=== PATIENT | female | born 1990 | race Caucasian/White ===

== ENCOUNTER 2017-11-08 14:45 | Emergency (ER) | payer OTHER, SELFPAY ==
--- NOTE | 2017-11-08 16:06 | RAD REPORT ---
EXAM DESCRIPTION: RAD - Chest Single View - 11/08/2017 3:58 pm CLINICAL HISTORY: syncope Chest pain. COMPARISON: No comparisons FINDINGS: Portable technique limits examination quality. The lungs are grossly clear. The heart is normal in size. No displaced fractures. IMPRESSION: No acute intrathoracic process suspected.
[2017-11-08] MEDS ORDERED: KETOROLAC 30 MG/ML INJ ONE (16:10)
[2017-11-08] MEDS ORDERED: NA CHLORIDE 0.9% 1,000 ML ONE (16:10)
[2017-11-08 16:13] LABS: Absolute Lymphocytes (CBC) 1.8 K/uL (0.7-4.9); Absolute Monocytes 0.3 K/uL (0.1-1.3); Absolute Neutrophil 3.3 K/uL (1.8-8.0); Basophils % 0.6 % (0-1.3); Eosinophils % 0.7 % (0-4.4); Lymphocytes % 33.3 % (15.3-44.8); MCH 28.6 pg (27.0-35.0); MCV 85.4 fL (80-100); MPV 7.6 fL (7.6-11.3)
[2017-11-08 16:19] LABS: Protime INR 1.05
[2017-11-08 16:26] LABS: Barbiturates NEGATIVE (NEGATIVE); Benzodiazepines NEGATIVE (NEGATIVE); Cocaine NEGATIVE (NEGATIVE); METHAMPHETAM NEGATIVE (NEGATIVE); Methadone NEGATIVE (NEGATIVE); Opiates NEGATIVE (NEGATIVE); Phencyclidine NEGATIVE (NEGATIVE); THC Cannibis NEGATIVE (NEGATIVE)
--- NOTE | 2017-11-08 16:29 | RAD REPORT ---
EXAM DESCRIPTION: CT - Head Brain Wo Cont - 11/08/2017 4:13 pm CLINICAL HISTORY: Dizziness;Headache COMPARISON: No comparisons TECHNIQUE: All CT scans are performed using dose optimization technique as appropriate and may inclu de automated exposure control or mA/KV adjustment according to patient size. FINDINGS: No intracranial hemorrhage, hydrocephalus or extra-axial fluid collection.No areas of brai n edema or evidence of midline shift. The paranasal sinuses and mastoids are clear. The calvarium is intact. IMPRESSION: No acute intracranial abnormality.
[2017-11-08 16:33] LABS: ALT/SGPT 17 U/L (12-78); AST/SGOT 15 U/L (15-37); Albumin 3.9 g/dL (3.4-5.0); Alkaline Phosphatase 53 U/L (45-117); BUN Blood Urea Nitrogen 10 mg/dL (7-18); Bicarbonate 27 mmol/L (21-32); Bilirubin Direct 0.1 mg/dL (0-0.2); Bilirubin Total 0.4 mg/dL (0.2-1.0); Glucose Level 83 mg/dL (74-106); Magnesium 2.3 mg/dL (1.8-2.4); NT PRO-BNP 40 pg/mL (<125); Potassium 3.7 mmol/L (3.5-5.1); Protein, Total 7.2 g/dL (6.4-8.2); Sodium Level 139 mmol/L (136-145)
[2017-11-08 16:42] LABS: Urine Blood NEGATIVE (NEG); Urine Glucose NEGATIVE (NEG); Urine Protein NEGATIVE (NEG); Urine Specific Gravity 1.015 (1.005-1.030)
[2017-11-08] MEDS ORDERED: TRAMADOL HCL 50 MG TAB ONE (17:53)
--- NOTE | 2017-11-08 17:56 | ER ---
Nurse's Notes [facility] Name: Noreen Jonas Age: 27 yrs Sex: Female : 1990 Arrival Date: 11/08/2017 Time: 14:49 Bed 30 Private MD: None, None Diagnosis: Chronic headaches, body aches and general malaise Presentation: 11/08 14:50 Presenting complaint: Patient states: rafi been passing out frequently, started 3-4 days hj ago; reports abd pain, blurred vision, nausea and migraine; been using [place]; denies fever and chills; LMP- irregular. Transition of care: patient was not received from another setting of care. Onset of symptoms was November 08, 2017. Risk Assessment: Do you want to hurt yourself or someone else? Patient reports no desire to harm self or others. Initial Sepsis Screen: Does the patient meet any 2 criteria? No. Patient's initial sepsis screen is negative. Does the patient have a suspected source of infection? No. Patient's initial sepsis screen is negative. Care prior to arrival: None. 14:50 Method Of Arrival: Ambulatory 14:50 Acuity: MIAH 3 hj Triage Assessment: 14:54 Headache History: Denies prior headaches. General: Appears in no apparent distress. hj uncomfortable, Behavior is calm, cooperative, appropriate for age. Pain: Complains of pain in head Pain currently is 10 out of 10 on a pain scale. Pain began 2-3 days ago. Also complains of nausea. Neuro: Level of Consciousness is awake, alert, obeys commands, Oriented to person, place, time, situation, Appropriate for age. 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 - Social history:: Smoking status: Patient/guardian denies using tobacco, Patient/guardian denies using alcohol. - Ebola Screening: : Patient negative for fever greater than or equal to 101.5 degrees Fahrenheit, and additional compatible Ebola Virus Disease symptoms Patient denies exposure to infectious person Patient denies travel to an Ebola-affected area in the 21 days before illness onset. Screenin:55 Abuse screen: Denies threats or abuse. Denies injuries from another. Nutritional hj screening: No deficits noted. Tuberculosis screening: No symptoms or risk factors identified. Fall Risk None identified. Assessment: 16:23 General: Appears in no apparent distress. comfortable, Behavior is calm, cooperative. mg2 Pain: Complains of pain in head Pain does not radiate. Pain currently is 6 out of 10 on a pain scale. Quality of pain is described as aching, Pain began gradually, Is intermittent. Neuro: Level of Consciousness is awake, alert, obeys commands, Oriented to person, place, time, situation. Cardiovascular: Capillary refill < 3 seconds Patient's skin is warm and dry. Respiratory: Airway is patent Respiratory effort is even, unlabored, Respiratory pattern is regular, symmetrical. GI: No signs and/or symptoms were reported involving the gastrointestinal system. : No signs and/or symptoms were reported regarding the genitourinary system. EENT: No signs and/or symptoms were reported regarding the EENT system. Derm: Skin is intact, Skin is pink, warm \T\ dry. normal. Musculoskeletal: Circulation, motion, and sensation intact. Vital Signs: 14:55 BP 112 / 81; Pulse 77; Resp 18; Temp 99.4(TE); Pulse Ox 99% on R/A; Weight 56.25 kg; hj Height 5 ft. 6 in. (167.64 cm); Pain 10/10; 16:25 BP 117 / 78 Supine; Pulse 64; Resp 18; Pulse Ox 100% ; mg2 16:25 BP 113 / 81 Sitting; Pulse 72; Resp 18; Pulse Ox 100% ; mg2 16:26 BP 125 / 83 Standing; Pulse 74; Resp 18; Pulse Ox 100% ; mg2 17:53 BP 123 / 81; Pulse 76; Resp 18; Pulse Ox 100% on R/A; Pain 6/10; mg2 14:55 Body Mass Index 20.01 (56.25 kg, 167.64 cm) ED Course: 14:49 Patient arrived in ED. mr 14:49 None, None is Private Physician. mr 14:53 Triage completed. hj 14:55 Arm band placed on left wrist. hj 14:55 Patient has correct armband on for positive identification. Placed in gown. Bed in low hj position. Call light in reach. Side rails up X 1. 15:05 Justin Miller, RN is Primary Nurse. mg2 15:30 Carter Pelletier MD is Attending Physician. kdr 15:48 EKG done, by fiberglass quality technician. reviewed by Carter Pelletier MD. 3 15:57 X-ray completed. Portable x-ray completed in exam room. Patient tolerated procedure ml well. 15:[address] via wheelchair. vr 15:58 XRAY Chest (1 view) In Process Unspecified. EDMS 16:13 CT Head Brain wo Cont In Process Unspecified. EDMS 16:23 Inserted saline lock: 20 gauge in right antecubital area, using aseptic technique. mg2 Blood collected. 18:20 No provider procedures requiring assistance completed. IV discontinued, intact, mg2 bleeding controlled, No redness/swelling at site. Pressure dressing applied. Administered Medications: 16:22 Drug: TORadol 30 mg Route: IVP; Site: right antecubital; mg2 16:23 Drug: NS 0.9% 1000 ml Route: IV; Rate: 1 bolus; Site: right antecubital; mg2 18:21 Follow up: Response: No adverse reaction; Pain is decreased; IV Status: Completed mg2 infusion 17:52 Drug: traMADol 100 mg Route: PO; mg2 18:21 Follow up: Response: No adverse reaction; Pain is decreased mg2 Outcome: 17:55 Discharge ordered by . kdr 18:21 Discharged to home ambulatory. mg2 18:21 Condition: stable 18:21 Discharge instructions given to patient, Instructed on discharge instructions, follow up and referral plans. medication usage, Demonstrated understanding of instructions, follow-up care, medications, Prescriptions given X 1. 18:22 Patient left the ED. mg2 Signatures: Dispatcher [employer] EDMI Carter Pelletier MD MD kdr Rivera, Maria mr Edis, Jocelynn Cabral vr Toni Erazo RN RN Justin Miller, JOSE GARCIA mg2 Priya Brooks 3
--- NOTE | 2017-11-08 17:56 | EDPHYS ---
Physician Documentation [facility] Name: Noreen Jonas Age: 27 yrs Sex: Female : 1990 Arrival Date: 11/08/2017 Time: 14:49 Bed 30 Private MD: None, None ED Physician Carter Pelletier HPI: 11/08 17:47 This 27 yrs old Female presents to ER via Ambulatory with complaints of kdr Passed Out Prior To Arrival, Dizziness, Headache, Blurred Vision. 17:47 The patient has experienced syncope, became unresponsive, collapsed, lost kdr consciousness. Onset: The symptoms/episode began/occurred suddenly, 2 week(s) ago. Duration: The patient has had multiple episodes, The patient states that she has been passing out repeatedly for more than a week. She states that she has been having a constant migraine for a weeks and generalized body aches for the last two years. She claims that her s/s may related to her control device. 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 - Social history:: Smoking status: Patient/guardian denies using tobacco, Patient/guardian denies using alcohol. - Ebola Screening: : Patient negative for fever greater than or equal to 101.5 degrees Fahrenheit, and additional compatible Ebola Virus Disease symptoms Patient denies exposure to infectious person Patient denies travel to an Ebola-affected area in the 21 days before illness onset. ROS: 18:02 Constitutional: Negative for fever, chills, and weight loss, Eyes: Negative for injury, kdr pain, redness, and discharge, Neck: Negative for injury, pain, and swelling, Cardiovascular: Negative for chest pain, palpitations, and edema, Respiratory: Negative for shortness of breath, cough, wheezing, and pleuritic chest pain, Abdomen/GI: Negative for abdominal pain, nausea, vomiting, diarrhea, and constipation, Back: Negative for injury and pain, : Negative for injury, bleeding, discharge, and swelling, MS/Extremity: Negative for injury and deformity, Skin: Negative for injury, rash, and discoloration, Psych: Negative for depression, anxiety, suicide ideation, homicidal ideation, and hallucinations, Allergy/Immunology: Negative for hives, rash, and allergies, Endocrine: Negative for neck swelling, polydipsia, polyuria, polyphagia, and marked weight changes, Hematologic/Lymphatic: Negative for swollen nodes, abnormal bleeding, and unusual bruising. 18:02 Neuro: Positive for headache, syncope, weakness. Exam: 18:02 Constitutional: This is a well developed, well nourished patient who is awake, alert, kdr and in no acute distress. Head/Face: Normocephalic, atraumatic. Eyes: Pupils equal round and reactive to light, extra-ocular motions intact. Lids and lashes normal. Conjunctiva and sclera are non-icteric and not injected. Cornea within normal limits. Periorbital areas with no swelling, redness, or edema. Neck: Trachea midline, no thyromegaly or masses palpated, and no cervical lymphadenopathy. Supple, full range of motion without nuchal rigidity, or vertebral point tenderness. No Meningismus. Chest/axilla: Normal chest wall appearance and motion. Nontender with no deformity. No lesions are appreciated. Cardiovascular: Regular rate and rhythm with a normal S1 and S2. No gallops, murmurs, or rubs. Normal PMI, no JVD. No pulse deficits. Respiratory: Lungs have equal breath sounds bilaterally, clear to auscultation and percussion. No rales, rhonchi or wheezes noted. No increased work of breathing, no retractions or nasal flaring. Abdomen/GI: Soft, non-tender, with normal bowel sounds. No distension or tympany. No guarding or rebound. No evidence of tenderness throughout. Back: No spinal tenderness. No costovertebral tenderness. Full range of motion. Skin: Warm, dry with normal turgor. Normal color with no rashes, no lesions, and no evidence of cellulitis. MS/ Extremity: Pulses equal, no cyanosis. Neurovascular intact. Full, normal range of motion. Neuro: Awake and alert, GCS 15, oriented to person, place, time, and situation. Cranial nerves II-XII grossly intact. Motor strength 5/5 in all extremities. Sensory grossly intact. Cerebellar exam normal. Normal gait. Psych: Awake, alert, with orientation to person, place and time. Behavior, mood, and affect are within normal limits. Vital Signs: 14:55 BP 112 / 81; Pulse 77; Resp 18; Temp 99.4(TE); Pulse Ox 99% on R/A; Weight 56.25 kg; hj Height 5 ft. 6 in. (167.64 cm); Pain 10/10; 16:25 BP 117 / 78 Supine; Pulse 64; Resp 18; Pulse Ox 100% ; mg2 16:25 BP 113 / 81 Sitting; Pulse 72; Resp 18; Pulse Ox 100% ; mg2 16:26 BP 125 / 83 Standing; Pulse 74; Resp 18; Pulse Ox 100% ; mg2 17:53 BP 123 / 81; Pulse 76; Resp 18; Pulse Ox 100% on R/A; Pain 6/10; mg2 14:55 Body Mass Index 20.01 (56.25 kg, 167.64 cm) hj MDM: 17:55 Patient medically screened. kdr 18:02 Data reviewed: vital signs, nurses notes, lab test result(s), radiologic studies. kdr Counseling: I had a detailed discussion with the patient and/or guardian regarding: the historical points, exam findings, and any diagnostic results supporting the discharge/admit diagnosis, lab results, radiology results, the need for outpatient follow up. 11/08 15:18 Order name: Urine Dipstick--Ancillary (enter results); Complete Time: 17:28 11/08 15:18 Order name: Urine --Ancillary (enter results); Complete Time: 17:28 11/08 15:32 Order name: Basic Metabolic Panel; Complete Time: 17:28 [facility] 11/08 15:32 Order name: CBC with Diff; Complete Time: 17:28 [facility] 11/08 15:32 Order name: LFT's; Complete Time: 17:28 [facility] 11/08 15:32 Order name: Magnesium; Complete Time: 17:28 [facility] 11/08 15:32 Order name: NT PRO-BNP; Complete Time: 17:28 [facility] 11/08 15:32 Order name: PT-INR; Complete Time: 17:28 [facility] 11/08 15:32 Order name: Ptt, Activated; Complete Time: 17:28 [facility] 11/08 15:32 Order name: Troponin (emerg Dept Use Only); Complete Time: 17:28 [facility] 11/08 15:32 Order name: XRAY Chest (1 view); Complete Time: 17:28 [facility] 11/08 15:32 Order name: UDS; Complete Time: 17: [facility] 11/08 15:52 Order name: CT Head Brain wo Cont; Complete Time: 17:28 [facility] 11/08 15:32 Order name: EKG; Complete Time: 15:33 [facility] 11/08 15:32 Order name: Cardiac monitoring; Complete Time: 16:04 [facility] 11/08 15:32 Order name: EKG - Nurse/Tech; Complete Time: 16:04 [facility] 11/08 15:32 Order name: IV Saline Lock; Complete Time: 16: [facility] 11/08 15:32 Order name: Labs collected and sent; Complete Time: 16: [facility] 11/08 15:32 Order name: O2 Per Protocol; Complete Time: 16:04 [facility] 11/08 15:32 Order name: O2 Sat Monitoring; Complete Time: 16:45 [facility] 11/08 15:32 Order name: Urine Dipstick-Ancillary (obtain specimen); Complete Time: 16:45 [facility] 11/08 15:32 Order name: Urine Test (obtain specimen); Complete Time: 15:40 [facility] 11/08 15:51 Order name: Orthostatic Blood Pressure; Complete Time: 16:23 kdr Administered Medications: 16:22 Drug: TORadol 30 mg Route: IVP; Site: right antecubital; mg2 16:23 Drug: NS 0.9% 1000 ml Route: IV; Rate: 1 bolus; Site: right antecubital; mg2 18:21 Follow up: Response: No adverse reaction; Pain is decreased; IV Status: Completed mg2 infusion 17:52 Drug: traMADol 100 mg Route: PO; mg2 18:21 Follow up: Response: No adverse reaction; Pain is decreased mg2 Disposition: 11/08/17 17:55 Discharged to Home. Impression: Chronic headaches, body aches and general malaise. - Condition is Stable. - Discharge Instructions: Musculoskeletal Pain, Syncope, [id number], General Headache Without Cause, [id number]. - Prescriptions for Tramadol 50 mg Oral Tablet - take 1 tablet by ORAL route every 8 hours as needed; 12 tablet. - Medication Reconciliation Form, Thank You Letter form. - Work release form (11/08/17 18:22). ss - Follow up: Private Physician; When: 2 - 3 days; Reason: If symptoms return, Further diagnostic work-up, Recheck today's complaints, Continuance of care, Re-evaluation by your physician. - Problem is chronic. - Symptoms have improved. Signatures: Dispatcher [employer] EDMS Carter Pelletier MD MD kdr Toni Erazo RN RN Justin Miller RN RN [facility] [place] Brittani Mora RN ss Corrections: (The following items were deleted from the chart) 18:22 17:55 11/08/2017 17:55 Discharged to Home. Impression: Chronic headaches, body aches mg2 and general malaise. Condition is Stable. Forms are Medication Reconciliation Form, Thank You Letter, Antibiotic Education, Prescription Opioid Use. Follow up: Private Physician; When: 2 - 3 days; Reason: If symptoms return, Further diagnostic work-up, Recheck today's complaints, Continuance of care, Re-evaluation by your physician. Problem is chronic. Symptoms have improved. kdr
[2017-11-08 18:34] VITALS: TEMP 99.4
[2017-11-08 18:35] VITALS: O2SAT 100
[2017-11-08 18:37] VITALS: BP 123/81
--- NOTE | 2017-11-08 19:02 | EKG ---
Test Date: 2017-11-08 Test Time: 15:42:03 Stump Shooter: JAMAL MEASUREMENT RESULTS: Intervals: Rate: 71 CA: 132 QRSD: 80 QT: 378 QTc: 410 [place]: P: 66 CA: 132 QRS: 64 T: 49 INTERPRETIVE STATEMENTS: Normal sinus rhythm Possible Left atrial enlargement Borderline ECG No previous ECG available for comparison Electronically Signed On 11-08-17 19:02:35 CDT by Larry Catherine
== END 2017-11-08 18:22 | disposition home or self-care (01) ==
LOC: ER 14:45
DX: R51 Headache (principal); R52 Pain, unspecified; R53.81 Other malaise; Z88.8 Allergy status to other drugs, medicaments and biological substances
CPT/HCPCS: 36415; 70450; 71045; 80048; 80076; 80307; 81003; 81025; 83735; 83880; 84484; 85025; 85610; 85730; 93005; 96361; 96374; 99284; J7030

== ENCOUNTER 2018-05-18 20:04 | Emergency (ER) | payer SELFPAY ==
[2018-05-18 21:22] LABS: Urine Blood NEGATIVE (NEG); Urine Glucose NEGATIVE (NEG); Urine Protein NEGATIVE (NEG); Urine Specific Gravity 1.015 (1.005-1.030); Urine pH 5.5 (5.0-7.0)
[2018-05-18 21:27] LABS: Urine Bacteria <20 /HPF (<20); Urine RBC NONE SEEN /HPF (NONE SEEN)
[2018-05-18 21:28] LABS: Urine Culture Reflex Order NOT NEEDED
[2018-05-18 21:32] LABS: Hematocrit 34.8 % (36.0-45.0); MPV 7.4 fL (7.6-11.3); RBC Red Blood Cell Count 4.08 M/uL (3.86-4.86)
[2018-05-18] MEDS ORDERED: ACETAMINOPHEN 500 MG TAB ONE (21:42)
--- NOTE | 2018-05-19 00:05 | ER ---
Nurse's Notes [facility] Name: Noreen Jonas Age: 27 yrs Sex: Female : 1990 Arrival Date: 05/18/2018 Time: 20:07 Bed 13 Private MD: Diagnosis: Lower abdominal pain, unspecified-early Presentation: 05/18 20:13 Presenting complaint: Patient states: LMP 04/16/2018, had a miscarriage on 04/23/18, la1 negative preg test 05/07/18, had abdominal cramping today took preg test and it was positive. Transition of care: patient was not received from another setting of care. Onset of symptoms was May 18, 2018. Risk Assessment: Do you want to hurt yourself or someone else? Patient reports no desire to harm self or others. Initial Sepsis Screen: Does the patient meet any 2 criteria? No. Patient's initial sepsis screen is negative. Does the patient have a suspected source of infection? No. Patient's initial sepsis screen is negative. Care prior to arrival: None. 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 - Social history:: Smoking status: Patient/guardian denies using tobacco. - Ebola Screening: : No symptoms or risks identified at this time. Screenin:33 Abuse screen: Denies threats or abuse. Denies injuries from another. Nutritional cc3 screening: No deficits noted. Tuberculosis screening: No symptoms or risk factors identified. Fall Risk Ambulatory Aid- None/Bed Rest/Nurse Assist (0 pts). Gait- Normal/Bed Rest/Wheelchair (0 pts) Mental Status- Oriented to own ability (0 pts). Assessment: 20:35 General: Appears in no apparent distress. comfortable, Behavior is calm, cooperative, cc3 appropriate for age. Pain: Complains of pain in abdomen. Neuro: Level of Consciousness is awake, alert, obeys commands, Oriented to person, place, time, situation, Appropriate for age. Cardiovascular: Denies chest pain. Respiratory: Airway is patent Respiratory effort is even, unlabored, Respiratory pattern is regular, symmetrical. GI: Bowel sounds present X 4 quads. Abd is soft and non tender X 4 quads. : No signs and/or symptoms were reported regarding the genitourinary system. EENT: No signs and/or symptoms were reported regarding the EENT system. Derm: No signs and/or symptoms reported regarding the dermatologic system. Musculoskeletal: Circulation, motion, and sensation intact. Range of motion: intact in all extremities. 21:18 Reassessment: Patient appears in no apparent distress at this time. Patient and/or cc3 family updated on plan of care and expected duration. Pain level reassessed. Patient is alert, oriented x 3, equal unlabored respirations, skin warm/dry/pink. 22:12 Reassessment: Patient appears in no apparent distress at this time. Patient and/or cc3 family updated on plan of care and expected duration. Pain level reassessed. Patient is alert, oriented x 3, equal unlabored respirations, skin warm/dry/pink. 23:10 Reassessment: Patient appears in no apparent distress at this time. Patient and/or cc3 family updated on plan of care and expected duration. Pain level reassessed. Patient is alert, oriented x 3, equal unlabored respirations, skin warm/dry/pink. 05/19 00:05 Reassessment: Patient appears in no apparent distress at this time. Patient and/or cc3 family updated on plan of care and expected duration. Pain level reassessed. Patient is alert, oriented x 3, equal unlabored respirations, skin warm/dry/pink. Dr. Garcia discharged the patient home, no prescription given. IV cannula removed and patient left ER vitally stable and ambulatory. Vital Signs: 05/18 20:12 BP 122 / 87; Pulse 93; Resp 18; Temp 97.5; Pulse Ox 98% on R/A; Weight 54.43 kg; Height la1 5 ft. 6 in. (167.64 cm); 21:30 BP 138 / 82; Pulse 85; Resp 19 S; Pulse Ox 100% on R/A; cc3 22:30 BP 126 / 77; Pulse 80; Resp 17 S; Pulse Ox 100% on R/A; cc3 23:10 BP 122 / 80; Pulse 78; Resp 18 S; Pulse Ox 100% on R/A; cc3 05/19 00:00 BP 119 / 77; Pulse 82; Resp 17 S; Pulse Ox 100% on R/A; cc3 05/18 20:12 Body Mass Index 19.37 (54.43 kg, 167.64 cm) la1 ED Course: 05/18 20:07 Patient arrived in ED. am2 20:14 Triage completed. la1 20:14 Arm band placed on left wrist. la1 20:33 Araceli Stephens is Primary Nurse. cc3 20:35 Jan Garcia MD is Attending Physician. gs 20:35 Patient has correct armband on for positive identification. Bed in low position. Call cc3 light in reach. Pulse ox on. NIBP on. 21:15 Inserted saline lock: 22 gauge in left antecubital area, using aseptic technique. Blood cc3 collected. 22:20 Ultrasound completed. Patient tolerated well. Notified ED Physician garcia, [address] request. 22:20 Note: during exam, patient stated she was only here to verify and "see how sg3 far along she was" because she had "nothing better to do today, and figured why not?" pt states she did not feel like waiting for a doctor's appointment. Patient did not complain of pain during exam. . 22:45 US 1st Trimest Single 1st Fetus In Process Unspecified. EDMS 05/19 00:05 No provider procedures requiring assistance completed. IV discontinued, intact, cc3 bleeding controlled, No redness/swelling at site. Pressure dressing applied. Administered Medications: 05/18 21:34 Drug: Tylenol 1000 mg Route: PO; cc3 22:09 Follow up: Response: No adverse reaction; Pain is decreased cc3 Outcome: 05/19 00:04 Discharge ordered by . gs 00:05 Discharged to home ambulatory, with family. cc3 00:05 Condition: stable 00:05 Discharge instructions given to patient, family, Instructed on discharge instructions, follow up and referral plans. Demonstrated understanding of instructions, follow-up care. 00:11 Patient left the ED. cc3 Signatures: Dispatcher [employer] EDTX William Smith, RN RN la1 Amy Almonte am2 Jan Garcia MD MD [facility] Araceli Stephens cc3
--- NOTE | 2018-05-19 00:06 | EDPHYS ---
Physician Documentation [facility] Name: Noreen Jonas Age: 27 yrs Sex: Female : 1990 Arrival Date: 05/18/2018 Time: 20:07 Bed 13 Private MD: ED Physician Jan Walters HPI: 05/18 23:51 This 27 yrs old Female presents to ER via Ambulatory with complaints of gs Abdominal Cramping - + preg test at home. 23:51 The patient presents to the emergency department with abdominal pain, of the right gs lower quadrant and left lower quadrant, that started today, described as crampy. Previous pregnancies: in previous pregnancies patient has had miscarriage about 6-8 weeks ago, positive test. Associated signs and symptoms: Pertinent negatives: vaginal bleeding. The patient has experienced a previous episode. The patient has not recently seen a physician. 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 - Social history:: Smoking status: Patient/guardian denies using tobacco. - Ebola Screening: : No symptoms or risks identified at this time. ROS: 23:51 All other systems are negative. gs Exam: 23:51 Head/Face: Normocephalic, atraumatic. Eyes: Pupils equal round and reactive to light, gs extra-ocular motions intact. Lids and lashes normal. Conjunctiva and sclera are non-icteric and not injected. Cornea within normal limits. Periorbital areas with no swelling, redness, or edema. ENT: Nares patent. No nasal discharge, no septal abnormalities noted. Tympanic membranes are normal and external auditory canals are clear. Oropharynx with no redness, swelling, or masses, exudates, or evidence of obstruction, uvula midline. Mucous membranes moist. Neck: Trachea midline, no thyromegaly or masses palpated, and no cervical lymphadenopathy. Supple, full range of motion without nuchal rigidity, or vertebral point tenderness. No Meningismus. Chest/axilla: Normal chest wall appearance and motion. Nontender with no deformity. No lesions are appreciated. Cardiovascular: Regular rate and rhythm with a normal S1 and S2. No gallops, murmurs, or rubs. Normal PMI, no JVD. No pulse deficits. Respiratory: Lungs have equal breath sounds bilaterally, clear to auscultation and percussion. No rales, rhonchi or wheezes noted. No increased work of breathing, no retractions or nasal flaring. Abdomen/GI: Soft, non-tender, with normal bowel sounds. No distension or tympany. No guarding or rebound. No evidence of tenderness throughout. Back: No spinal tenderness. No costovertebral tenderness. Full range of motion. Skin: Warm, dry with normal turgor. Normal color with no rashes, no lesions, and no evidence of cellulitis. MS/ Extremity: Pulses equal, no cyanosis. Neurovascular intact. Full, normal range of motion. Neuro: Awake and alert, GCS 15, oriented to person, place, time, and situation. Cranial nerves II-XII grossly intact. Motor strength 5/5 in all extremities. Sensory grossly intact. Cerebellar exam normal. Normal gait. 23:51 Constitutional: The patient appears alert, awake. Vital Signs: 20:12 BP 122 / 87; Pulse 93; Resp 18; Temp 97.5; Pulse Ox 98% on R/A; Weight 54.43 kg; Height la1 5 ft. 6 in. (167.64 cm); 21:30 BP 138 / 82; Pulse 85; Resp 19 S; Pulse Ox 100% on R/A; cc3 22:30 BP 126 / 77; Pulse 80; Resp 17 S; Pulse Ox 100% on R/A; cc3 23:10 BP 122 / 80; Pulse 78; Resp 18 S; Pulse Ox 100% on R/A; cc3 05/19 00:00 BP 119 / 77; Pulse 82; Resp 17 S; Pulse Ox 100% on R/A; cc3 05/18 20:12 Body Mass Index 19.37 (54.43 kg, 167.64 cm) la1 MDM: 05/18 20:49 Patient medically screened. 23:51 Differential diagnosis: ectopic , early . Data reviewed: vital signs, nurses notes. Response to treatment: the patient's symptoms have markedly improved after treatment, and as a result, I will discharge patient. 05/18 20:47 Order name: Urine Microscopic Only; Complete Time: 21:31 05/18 21:01 Order name: CBC w/o diff; Complete Time: 22:15 05/18 21:01 Order name: Quantitative Hcg; Complete Time: 22:15 05/18 21:01 Order name: US 1st Trimest Single 1st Fetus 05/18 21:04 Order name: Urine Dipstick--Ancillary (enter results); Complete Time: 21:31 [facility] 05/18 21:04 Order name: Urine --Ancillary (enter results); Complete Time: 21:31 [facility] 05/18 20:47 Order name: Urine Test (obtain specimen); Complete Time: 21:02 05/18 20:47 Order name: Urine Dipstick-Ancillary (obtain specimen); Complete Time: 21:02 Administered Medications: 21:34 Drug: Tylenol 1000 mg Route: PO; cc3 22:09 Follow up: Response: No adverse reaction; Pain is decreased cc3 Disposition: 05/19/18 00:04 Discharged to Home. Impression: Lower abdominal pain, unspecified - early . - Condition is Stable. - Discharge Instructions: Abdominal Pain, Adult, Abdominal Pain During . - Medication Reconciliation Form, Thank You Letter, Antibiotic Education, Prescription Opioid Use form. - Follow up: Private Physician; When: 2 - 3 days; Reason: Re-evaluation by your physician. Signatures: Dispatcher [employer] William Serra RN RN la1 Jan Walters MD MD gs Cordel, Charlene cc3 Corrections: (The following items were deleted from the chart) 05/19 00:11 00:04 05/19/2018 00:04 Discharged to Home. Impression: Lower abdominal pain, cc3 unspecified - early . Condition is Stable. Forms are Medication Reconciliation Form, Thank You Letter, Antibiotic Education, Prescription Opioid Use. Follow up: Private Physician; When: 2 - 3 days; Reason: Re-evaluation by your physician.
[2018-05-19 00:41] VITALS: TEMP 97.5
[2018-05-19 00:42] VITALS: O2SAT 100
[2018-05-19 00:44] VITALS: BP 122/80
--- NOTE | 2018-05-20 13:32 | RAD REPORT ---
EXAM DESCRIPTION: US First Trimester, Transabdominal, US , Transvaginal. CLINICAL HISTORY: The patient is 27 years old and is Female; ABD CRAMPING, . COMPARISON: No relevant prior studies available. TECHNIQUE: Real-time transabdominal and transvaginal obstetrical ultrasound of the maternal pelvis a nd a first trimester with image documentation. Transvaginal imaging was used for better monroe luation of the fetus and adnexa. FINDINGS: Gestation: There is no evidence of an intrauterine . Uterus/cervix: The endometrium is thickened measuring approximately 1.4 cm. No myometrial mass. Ovaries: Unremarkable. No mass. Free fluid: No free fluid. IMPRESSION: No evidence of intrauterine . Findings may be secondary to a very early intraut erine , failed first trimester or ectopic . Recommend continued follow-up with serial hCG and ultrasound. Electronically signed by: Amy Moura MD 05/18/2018 11:45 PM WEB OPERATIONS MANAGER Due to temporary technical issues with the PACS/Fluency reporting system, reports are being signed b y the in house radiologist as a courtesy to ensure prompt reporting. The interpreting radiologist is fully responsible for the content of the report.
== END 2018-05-19 00:11 | disposition home or self-care (01) ==
LOC: ER 20:04
DX: R10.30 Lower abdominal pain, unspecified (principal)
CPT/HCPCS: 36415; 76801; 81003; 81015; 81025; 84702; 85027; 99284

== ENCOUNTER 2020-06-14 10:12 | Emergency (ER) | payer OTHER, SELFPAY ==
--- OUTSIDE RECORDS SUMMARY | 2020-06-14 10:15 | XMS REPORT | Continuity of Care Document ---
:1990 Author Organization [facility] t Address [address] [place] [address] Care Team Providers Name Role Phone Pool, Resident Attending Clinician Unavailable Problems This patient has no known problems. Allergies, Adverse Reactions, Alerts This patient has no known allergies or adverse reactions. Medications This patient has no known medications. Procedures This patient has no known procedures. Encounters Start End Encounter Admission Attending Care Care Encounter Source Date/Time Date/Time Type Type Clinicians Facility Department ID 2020-06-03 2020-06-03 Telephone Pool, [facility] [id number] 00:00:00 00:00:00 [facility] [id number] [facility] [id number] 2020-05-11 2020-05-11 Office Pool, [facility] [id number] 15:19:36 15:56:39 Visit [facility] [id number] [facility] [id number] Results This patient has no known results.
[2020-06-14 10:39] LABS: Urine Blood 2+ (NEG); Urine Glucose NEGATIVE (NEG); Urine Protein NEGATIVE (NEG); Urine Specific Gravity 1.015 (1.005-1.030)
[2020-06-14 11:05] LABS: Urine Bacteria 20-50 /HPF (<20)
[2020-06-14 11:10] LABS: Absolute Lymphocytes (CBC) 1.8 K/uL (0.7-4.9); Basophils % 1.1 % (0-1.3); Hematocrit 32.7 % (36.0-45.0); Lymphocytes % 32.7 % (15.3-44.8); RBC Red Blood Cell Count 4.17 M/uL (3.86-4.86)
[2020-06-14 11:20] LABS: BUN Blood Urea Nitrogen 13 mg/dL (7-18); Bicarbonate 27 mmol/L (21-32); Glucose Level 91 mg/dL (74-106); Sodium Level 140 mmol/L (136-145)
--- NOTE | 2020-06-14 12:03 | EDPHYS ---
Physician Documentation [facility] Name: Noreen Jonas Age: 30 yrs Sex: Female : 1990 Arrival Date: 06/14/2020 Time: 10:18 Bed 14 Private MD: ED Physician Alberto Ferguson HPI: 06/14 11:13 This 30 yrs old Female presents to ER via Ambulatory with complaints of kb Ovarian/Uterine Pain. 11:17 The patient presents with abdominal pain in the left lower quadrant, suprapubic. Onset: kb The symptoms/episode began/occurred 1.5 year(s) ago. The symptoms do not radiate. Associated signs and symptoms: Pertinent positives: vaginal bleeding. The symptoms are described as constant. Modifying factors: The symptoms are alleviated by nothing, the symptoms are aggravated by nothing. Severity of pain: At its worst the pain was moderate in the emergency department the pain is unchanged. The patient has not experienced similar symptoms in the past. The patient has not recently seen a physician. Pt reports she has had ovarian and uterine pain for 1.5 years. States she has vaginal bleeding with it that lasts months at a time. Reports her energy level is low and sometimes she is pale. States it has become a safety hazard at work. Has been seen by a mobile electronics installer for this multiple times and needs a hysterectomy, but her dr is at [facility] and they don't take her insurance. She called her insurance company to find out what she needed to do and they told her to come to an ER to get treatment because she wouldn't be sent away. . 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 - Social history:: Smoking status: Patient denies any tobacco usage or history of. ROS: 11:12 Constitutional: Negative for fever, chills, and weight loss, Cardiovascular: Negative kb for chest pain, palpitations, and edema, Respiratory: Negative for shortness of breath, cough, wheezing, and pleuritic chest pain, Back: Negative for injury and pain, MS/Extremity: Negative for injury and deformity, Skin: Negative for injury, rash, and discoloration, Neuro: Negative for headache, weakness, numbness, tingling, and seizure. 11:12 Abdomen/GI: Positive for abdominal pain. 11:12 : Positive for pelvic pain, vaginal bleeding. Exam: 11:12 Constitutional: This is a well developed, well nourished patient who is awake, alert, kb and in no acute distress. Head/Face: Normocephalic, atraumatic. Chest/axilla: Normal chest wall appearance and motion. Nontender with no deformity. No lesions are appreciated. Cardiovascular: Regular rate and rhythm with a normal S1 and S2. No gallops, murmurs, or rubs. Normal PMI, no JVD. No pulse deficits. Respiratory: Lungs have equal breath sounds bilaterally, clear to auscultation and percussion. No rales, rhonchi or wheezes noted. No increased work of breathing, no retractions or nasal flaring. Skin: Warm, dry with normal turgor. Normal color with no rashes, no lesions, and no evidence of cellulitis. MS/ Extremity: Pulses equal, no cyanosis. Neurovascular intact. Full, normal range of motion. Neuro: Awake and alert, GCS 15, oriented to person, place, time, and situation. Cranial nerves II-XII grossly intact. Motor strength 5/5 in all extremities. Sensory grossly intact. Cerebellar exam normal. Normal gait. 11:12 Abdomen/GI: Inspection: abdomen appears normal, Bowel sounds: normal, in all quadrants, Palpation: soft, in all quadrants, moderate abdominal tenderness, in the suprapubic area and left lower quadrant. Vital Signs: 10:22 BP 141 / 89; Pulse 95; Resp 16 S; Temp 98.2(TE); Pulse Ox 99% on R/A; Weight 69.4 kg ca1 (R); Height 5 ft. 6 in. (167.64 cm) (R); Pain 8/10; 10:22 Body Mass Index 24.69 (69.40 kg, 167.64 cm) ca1 MDM: 10:26 Patient medically screened. kb 11:12 Data reviewed: vital signs, nurses notes. Data interpreted: Pulse oximetry: on room air kb is 99 %. Interpretation: normal. 12:02 Counseling: I had a detailed discussion with the patient and/or guardian regarding: the kb historical points, exam findings, and any diagnostic results supporting the discharge/admit diagnosis, lab results, radiology results, the need for outpatient follow up, an OB/Gyne specialist, to return to the emergency department if symptoms worsen or persist or if there are any questions or concerns that arise at home. 06/14 10:34 Order name: Urine Dipstick--Ancillary (enter results); Complete Time: 10:39 em1 06/14 10:34 Order name: Urine --Ancillary (enter results); Complete Time: 10:40 em1 06/14 10:35 Order name: Urine Microscopic Only iw 06/14 10:36 Order name: Urine Microscopic Only; Complete Time: 11:09 [facility] 06/14 10:38 Order name: CBC with Diff; Complete Time: 11:22 kb 06/14 10:38 Order name: Basic Metabolic Panel; Complete Time: 11:22 kb 06/14 10:23 Order name: Urine Dipstick-Ancillary (obtain specimen); Complete Time: 10:33 kb 06/14 10:23 Order name: Urine Test (obtain specimen); Complete Time: 10:33 kb 06/14 10:38 Order name: US Transvaginal Study (Probe); Complete Time: 12:13 kb Administered Medications: 12:21 Drug: [place] (7.5 mg-325 mg) 1 tabs Route: PO; iw 12:30 Follow up: Response: No adverse reaction iw Disposition: 16:07 Co-signature as Attending Physician, Alberto Ferguson MD. rn Disposition: 06/14/20 12:02 Discharged to Home. Impression: Abdominal and pelvic pain - chronic. - Condition is Stable. - Discharge Instructions: Pelvic Pain, Female, [id number], Abdominal Pain, Adult, [id number]. - Work release form, Medication Reconciliation Form, Thank You Letter, Antibiotic Education, Prescription Opioid Use form. - Follow up: Emergency Department; When: As needed; Reason: Worsening of condition. Follow up: Private Physician; When: 2 - 3 days; Reason: Recheck today's complaints, Continuance of care, Re-evaluation by your physician. Signatures: Dispatcher [employer] EDMS Marry Moya, SMOKING TOBACCO PACKING MACHINE HAND-C SMOKING TOBACCO PACKING MACHINE HAND-Lauren Rivera, RN RN iw Alberto Ferguson MD MD rn Acob, JOSE Diaz RN ca1 Corrections: (The following items were deleted from the chart) 12:21 12:02 06/14/2020 12:02 Discharged to Home. Impression: Abdominal and pelvic pain - iw chronic. Condition is Stable. Forms are Medication Reconciliation Form, Thank You Letter, Antibiotic Education, Prescription Opioid Use. Follow up: Emergency Department; When: As needed; Reason: Worsening of condition. Follow up: Private Physician; When: 2 - 3 days; Reason: Recheck today's complaints, Continuance of care, Re-evaluation by your physician. kb
--- NOTE | 2020-06-14 12:03 | ER ---
Nurse's Notes [facility] Name: Noreen Jonas Age: 30 yrs Sex: Female : 1990 Arrival Date: 06/14/2020 Time: 10:18 Bed 14 Private MD: Diagnosis: Abdominal and pelvic pain-chronic Presentation: 06/14 10:22 Chief complaint: Patient states: Lower abdominal pain, radiates to the LLQ. I've had ca1 this pain for a year and a half with my uterus and my ovary. 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 I also have on and off vaginal bleeding. Coronavirus screen: Client denies travel out of the [place] in the last 14 days. At this time, the client does not indicate any symptoms associated with coronavirus-19. Ebola Screen: Patient negative for fever greater than or equal to 101.5 degrees Fahrenheit, and additional compatible Ebola Virus Disease symptoms Patient denies exposure to infectious person. Patient denies travel to an Ebola-affected area in the 21 days before illness onset. No symptoms or risks identified at this time. Initial Sepsis Screen: Does the patient meet any 2 criteria? No. Patient's initial sepsis screen is negative. Does the patient have a suspected source of infection? No. Patient's initial sepsis screen is negative. Risk Assessment: Do you want to hurt yourself or someone else? Patient reports no desire to harm self or others. Onset of symptoms was June 14, 2020. 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 - Social history:: Smoking status: Patient denies any tobacco usage or history of. Screenin:13 Abuse screen: Denies threats or abuse. Denies injuries from another. Nutritional iw screening: No deficits noted. Tuberculosis screening: No symptoms or risk factors identified. Fall Risk IV access (20 points). Assessment: 11:12 General: Appears in no apparent distress. comfortable, Behavior is calm, cooperative. iw Pain:. Pain: Complains of pain in pelvis. Neuro: Level of Consciousness is awake, alert, obeys commands, Oriented to person, place, time, situation, Moves all extremities. Full function. Cardiovascular: Patient's skin is warm and dry. Respiratory: Respiratory effort is even, unlabored, Respiratory pattern is regular, symmetrical. GI: Reports lower abdominal pain. Derm: Skin is intact, is healthy with good turgor. Musculoskeletal: Range of motion: intact in all extremities. 12:21 Reassessment: Patient appears in no apparent distress at this time. Patient and/or iw family updated on plan of care and expected duration. Pain level reassessed. Patient is alert, oriented x 3, equal unlabored respirations, skin warm/dry/pink. Vital Signs: 10:22 BP 141 / 89; Pulse 95; Resp 16 S; Temp 98.2(TE); Pulse Ox 99% on R/A; Weight 69.4 kg ca1 (R); Height 5 ft. 6 in. (167.64 cm) (R); Pain 8/10; 10:22 Body Mass Index 24.69 (69.40 kg, 167.64 cm) ca1 ED Course: 10:18 Patient arrived in ED. ds1 10:23 Marry Moya FNP-C [facility]. kb 10:23 Alberto Ferguson MD is Attending Physician. kb 10:25 Triage completed. ca1 10:26 Arm band placed on right wrist. ca1 10:27 Lauren Gamble, JOSE is Primary Nurse. iw 11:07 Initial lab(s) drawn, by me, sent to lab. Inserted saline lock: 22 gauge in right iw antecubital area, using aseptic technique. 11:47 US Transvaginal Study (Probe) In Process Unspecified. EDMS 12:21 Patient has correct armband on for positive identification. iw 12:21 No provider procedures requiring assistance completed. IV discontinued, intact, iw bleeding controlled, No redness/swelling at site. Pressure dressing applied. Administered Medications: 12:21 Drug: [place] (7.5 mg-325 mg) 1 tabs Route: PO; iw 12:30 Follow up: Response: No adverse reaction iw Outcome: 12:02 Discharge ordered by . georgie 12:21 Discharged to home ambulatory. iw 12:21 Discharged to home ambulatory, with family. 12:21 Condition: good 12:21 Discharge instructions given to patient, Instructed on discharge instructions, follow up and referral plans. medication usage, Demonstrated understanding of instructions, follow-up care, medications, Prescriptions given X 1. 12:21 Patient left the ED. iw Signatures: Dispatcher [employer] EDMS Marry Moya, EXPEDITER CLERK-C EXPEDITER CLERK-Keyonna Kirby ds1 Lauren Gamble, RN RN iw Emily Tadeo RN RN ca1
--- NOTE | 2020-06-14 12:09 | RAD REPORT ---
EXAM DESCRIPTION: US - Transvaginal Study Probe - 06/14/2020 11:47 am CLINICAL HISTORY: ABD PAIN COMPARISON: No comparisons TECHNIQUE: Endovaginal sonography was performed. FINDINGS: Uterus is 7.9 x 4.0 x 4.8 cm. Endometrium is 7 mm. No focal endometrial or myometrial mass identifiable. Both ovaries are identifiable and show normal blood flow within the ovarian stroma. No suspicious adnexal mass is identifiable. Right ovary contains a small 10 mm benign cyst or follicle. No blood or fluid in the cul de sac. IMPRESSION: As detailed above, pelvic ultrasound shows no significant or suspicious finding.
[2020-06-14] MEDS ORDERED: HYDROCODONE/APAP 7.5/325 MG TAB ONE (12:30)
== END 2020-06-14 12:21 | disposition home or self-care (01) ==
LOC: ER 10:12
DX: R10.2 Pelvic and perineal pain (principal); Z88.6 Allergy status to analgesic agent; Z91.018 Allergy to other foods
CPT/HCPCS: 36415; 76830; 80048; 81003; 81015; 81025; 85025; 99284

== ENCOUNTER 2022-08-10 17:15 | Emergency (ER) | payer SELFPAY ==
--- OUTSIDE RECORDS SUMMARY | 2022-08-10 17:23 | XMS REPORT | Continuity of Care Document ---
:1990 Author Organization [facility] t Address [address] [facility]. [address] [place] [address] Care Team Providers Name Role Phone JJ RODRIGUEZ Primary Care Physician Unavailable Shyam Burgos DO Attending Clinician [facility] Resident Attending Clinician Unavailable Gerson Sharma MD Attending Clinician Doctor Unassigned, Crumpler Attending Clinician Unavailable Hedy Harkins MD Attending Clinician Gerson George MD Attending Clinician Romero Cui Attending Clinician ATIF SPAULDING Attending Clinician Unavailable Atif Spaulding MD Attending Clinician ROMERO COHEN Attending Clinician Unavailable G_Pappas Attending Clinician Unavailable Haydee Carver Attending Clinician HAYDEE WEEKS Attending Clinician Unavailable APRIL TINAJERO Attending Clinician Unavailable MANISHA CRENSHAW Attending Clinician Unavailable Manisha Armenta Attending Clinician Roger Daley Attending Clinician ROGER BAEZ Attending Clinician Unavailable Jj Rodriguez MD Attending Clinician Rebecca Carrera MD Attending Clinician 1, [facility] Attending Clinician Unavailable April Tinajero PA-C Attending Clinician Ultrasound, Adc Mfm Attending Clinician Unavailable Monse Gomez Attending Clinician [phone] Ally Jesus MD Attending Clinician Marina GARCIA, Marjorie Attending Clinician Unavailable MONSE LEON Attending Clinician Unavailable G_Pappas Admitting Clinician Unavailable MANISHA CRENSHAW Admitting Clinician Unavailable Jj Rodriguez MD Admitting Clinician Ally Jesus MD Admitting Clinician Payers Payer Name Policy Type Policy Number Effective Date Expiration Date S sepideh [employer] [place] [facility] [id number] 2020 00:00:00 [place] [id number] [place] [id number] 2018 00:00:00 Problems Condition Condition Condition Status Onset Resolution Last Treating Co mments Source Name Details Category Date Date Treatment Clinician Date Abnormal Abnormal Disease Active Unive rs uterine uterine 3-12 ity of bleeding bleeding 00:00: [address] Pain Pain Disease Active Univers pelvic pelvic 3-25 ity of 00:00: [address] Encounter Encounter Disease Active 2018-04 Overview: Univers for for 1-04 Added ity of sterilizat sterilizat 00:00: automatic [place] ion ion 00 ally from Medical request Branch for surgery [id number] Encounter Encounter Disease Active Uni vers for for 9-30 [place] labor of labor 00 Medica l Branch 37 weeks 37 weeks Disease Active Unive rs gestation gestation 9-17 ity of of of 00:00: [place] 00 [facility] gali [place] Anemia of Anemia of Disease Active Uni vers mother in mother in 8-07 [place]y [place] , , [place] antepartum antepartum 00 Pa dical [place] Depression Depression Disease Active U nivers affecting affecting 6-25 [place] Anxiety Anxiety Disease Active Univers 6-25 ity of 00:00: [address] 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:00: [place] remission remission 00 [facility] Multiparit Multiparit Disease Active 2019- U nivers y y 2-15 ity of 00:00: [place] 00 Medical Branch Supervisio Supervisio Disease Active U nivers n of n of 2-15 ity of high-risk high-risk [place] [facility] Attention Attention Disease Active 2012-04 Overview: Univers deficit deficit 1-15 ICD10 ity of hyperactiv hyperactiv 00:00: Diagnosis [place] ity ity 00 Term Medical disorder disorder [facility] [employer] Bran ch (ADHD) (ADHD) Utility Bipolar Bipolar Disease Active 2012-04 Univers disorder, disorder, 1-15 ity of manic manic 00:00: [place] 00 [facility] Branch Allergies, Adverse Reactions, Alerts Allergy Allergy Status Severity Reaction(s) Onset Inactive Treating Comm ents Source Name Type Date Date Clinician IBUPROFE DRUG Active Rash 2016-04 Univers N INGREDI 2-20 ity of 00:00: [place] 00 [facility] Ibuprofe Propensi Active Rash 2016-04 Univer s n ty to 2-20 ity of adverse 00:00: [place] reaction 00 [facility] PAPAYA DRUG Active Anaphylaxis 2012-04 Unive rs INGREDI 2-13 ity of 00:00: [place] 00 [facility] Papaya Propensi Active Rash 2012-04 Univers ty to 2-13 ity of adverse 00:00: [place] reaction 00 Medical s to Branch drug Social History Social Habit Start Date Stop Date Quantity Comments Source ASSERTION 2018-04-28 University of 00:00:00 [facility] Exposure to Not sure University SARS-CoV-2 [facility] (event) Branch Alcohol intake 2020-06-25 2020-06-25 Current University of 00:00:00 00:00:00 non-drinker of [facility] alcohol [place] (finding) Tobacco use and 2020-06-25 2020-06-25 Never used Universit y of exposure 00:00:00 00:00:00 [facility] Sex Ass[birth year] At [birth year] Universit y of 00:00:00 00:00:00 [facility] Smoking Status Start Date Stop Date Source Never smoker [facility] [place] [facility] Medications Ordered Filled Start Stop Current Ordering Indication Dosage Frequency Signature Comments Components Source Medication Medication Date Date Medication? Clinician (SIG) Name Name norgestimat Yes [id number] 1{tbl} Take 1 Univers e-ethinyl 3-12 tablet by ity o f estradioL 00:00: mouth [place] 0.25-35 00 daily. Medical mg-mcg per Branch tablet norgestimat Yes [id number] 1{tbl} Take 1 Univers e-ethinyl 3-12 tablet by ity o f estradioL 00:00: mouth [place] 0.25-35 00 daily. Medical mg-mcg per Branch tablet norgestimat Yes [id number] 1{tbl} Take 1 Univers e-ethinyl 3-12 tablet by ity o f estradioL 00:00: mouth [place] 0.25-35 00 daily. Medical mg-mcg per Branch tablet norgestimat Yes [id number] 1{tbl} Take 1 Univers e-ethinyl 3-12 tablet by ity o f estradioL 00:00: mouth [place] 0.25-35 00 daily. Medical mg-mcg per Branch tablet norgestimat Yes [id number] 1{tbl} Take 1 Univers e-ethinyl 3-12 tablet by ity o f estradioL 00:00: mouth [place] 0.25-35 00 daily. Medical mg-mcg per Branch tablet norgestimat Yes [id number] 1{tbl} Take 1 Univers e-ethinyl 3-12 tablet by ity o f estradioL 00:00: mouth [place] 0.25-35 00 daily. Medical mg-mcg per Branch tablet norgestimat Yes [id number] 1{tbl} Take 1 Univers e-ethinyl 3-12 tablet by ity o f estradioL 00:00: mouth [place] 0.25-35 00 daily. Medical mg-mcg per Branch tablet norgestimat Yes [id number] 1{tbl} Take 1 Univers e-ethinyl 2-26 tablet by ity o f estradioL 00:00: mouth [place] 0.25-35 00 daily. Medical mg-mcg per Branch tablet norgestimat Yes [id number] 1{tbl} Take 1 Univers e-ethinyl 2-26 tablet by ity o f estradioL 00:00: mouth [place] 0.25-35 00 daily. Medical mg-mcg per Branch tablet norgestimat Yes [id number] 1{tbl} Take 1 Univers e-ethinyl 2-26 tablet by ity o f estradioL 00:00: mouth [place] 0.25-35 00 daily. Medical mg-mcg per Branch tablet norgestimat Yes [id number] 1{tbl} Take 1 Univers e-ethinyl 2-26 tablet by ity o f estradioL 00:00: mouth [place] 0.25-35 00 daily. Medical mg-mcg per Branch tablet norgestimat Yes [id number] 1{tbl} Take 1 Univers e-ethinyl 2-26 tablet by ity o f estradioL 00:00: mouth [place] 0.25-35 00 daily. Medical mg-mcg per Branch tablet norgestimat Yes [id number] 1{tbl} Take 1 Univers e-ethinyl 2-26 tablet by ity o f estradioL 00:00: mouth [place] 0.25-35 00 daily. Medical mg-mcg per Branch tablet norgestimat Yes [id number] 1{tbl} Take 1 Univers e-ethinyl 2-26 tablet by ity o f estradioL 00:00: mouth [place] 0.25-35 00 daily. Medical mg-mcg per Branch tablet norgestimat Yes [id number] 1{tbl} Take 1 Univers e-ethinyl 2-26 tablet by ity o f estradioL 00:00: mouth [place] 0.25-35 00 daily. Medical mg-mcg per Branch tablet ondansetron Yes [id number] 4mg Take 1 Univers (ZOFRAN) 4 1-26 100 tablet by ity of mg tablet 00:00: mouth [place] 00 every 8 Medical (eight) Branch hours as needed for Nausea and Vomiting (N/V). ondansetron Yes [id number] 4mg Take 1 Univers (ZOFRAN) 4 1-26 100 tablet by ity of mg tablet 00:00: mouth [place] 00 every 8 Medical (eight) Branch hours as needed for Nausea and Vomiting (N/V). norgestimat Yes [id number] 1{tbl} Take 1 Univers e-ethinyl 1-26 100 tablet by ity o f estradioL 00:00: mouth [place] 0.25-35 00 daily. Medical mg-mcg per Skip Branch tablet placebo week ondansetron Yes [id number] 4mg Take 1 Univers (ZOFRAN) 4 1-26 100 tablet by ity of mg tablet 00:00: mouth [place] 00 every 8 Medical (eight) Branch hours as needed for Nausea and Vomiting (N/V). norgestimat Yes [id number] 1{tbl} Take 1 Univers e-ethinyl 1-26 100 tablet by ity o f estradioL 00:00: mouth [place] 0.25-35 00 daily. Medical mg-mcg per Skip Branch tablet placebo week ondansetron Yes [id number] 4mg Take 1 Univers (ZOFRAN) 4 1-26 100 tablet by ity of mg tablet 00:00: mouth [place] 00 every 8 Medical (eight) Branch hours as needed for Nausea and Vomiting (N/V). norgestimat Yes [id number] 1{tbl} Take 1 Univers e-ethinyl 1-26 100 tablet by ity o f estradioL 00:00: mouth [place] 0.25-35 00 daily. Medical mg-mcg per Skip Branch tablet placebo week ondansetron Yes [id number] 4mg Take 1 Univers (ZOFRAN) 4 1-26 100 tablet by ity of mg tablet 00:00: mouth [place] 00 every 8 Medical (eight) Branch hours as needed for Nausea and Vomiting (N/V). ondansetron Yes [id number] 4mg Take 1 Univers (ZOFRAN) 4 1-26 100 tablet by ity of mg tablet 00:00: mouth [place] 00 every 8 Medical (eight) Branch hours as needed for Nausea and Vomiting (N/V). ondansetron Yes [id number] 4mg Take 1 Univers (ZOFRAN) 4 1-26 100 tablet by ity of mg tablet 00:00: mouth [place] 00 every 8 Medical (eight) Branch hours as needed for Nausea and Vomiting (N/V). ondansetron Yes [id number] 4mg Take 1 Univers (ZOFRAN) 4 1-26 100 tablet by ity of mg tablet 00:00: mouth [place] 00 every 8 Medical (eight) Branch hours as needed for Nausea and Vomiting (N/V). ondansetron Yes [id number] 4mg Take 1 Univers (ZOFRAN) 4 1-26 100 tablet by ity of mg tablet 00:00: mouth [place] 00 every 8 Medical (eight) Branch hours as needed for Nausea and Vomiting (N/V). ondansetron Yes [id number] 4mg Take 1 Univers (ZOFRAN) 4 1-26 100 tablet by ity of mg tablet 00:00: mouth [place] 00 every 8 Medical (eight) Branch hours as needed for Nausea and Vomiting (N/V). ondansetron Yes [id number] 4mg Take 1 Univers (ZOFRAN) 4 1-26 100 tablet by ity of mg tablet 00:00: mouth [place] 00 every 8 Medical (eight) Branch hours as needed for Nausea and Vomiting (N/V). norgestimat 2020- No [id number] 1{tbl} Take 1 Univers e-ethinyl 1-26 -26 100 tablet by ity of estradioL 00:00: 00:00 mouth [place] 0.25-35 00 :00 daily. Medical mg-mcg per Skip Branch tablet placebo week norgestimat 2019-04 Yes [id number] 1{tbl} Take 1 Univers e-ethinyl 2-04 100 tablet by ity o f estradioL 00:00: mouth [place] 0.25-35 00 daily. Do Medical mg-mcg per not take Branc h tablet week of placebo pills. norgestimat 2019-04 Yes [id number] 1{tbl} Take 1 Univers e-ethinyl 2-04 100 tablet by ity o f estradioL 00:00: mouth [place] 0.25-35 00 daily. Do Medical mg-mcg per not take Branc h tablet week of placebo pills. norgestimat 2019-04 Yes [id number] 1{tbl} Take 1 Univers e-ethinyl 2-04 100 tablet by ity o f estradioL 00:00: mouth [place] 0.25-35 00 daily. Do Medical mg-mcg per not take Branc h tablet week of placebo pills. norgestimat 2019-04 Yes [id number] 1{tbl} Take 1 Univers e-ethinyl 2-04 100 tablet by ity o f estradioL 00:00: mouth [place] 0.25-35 00 daily. Do Medical mg-mcg per not take Branc h tablet week of placebo pills. norgestimat 2019-04 Yes [id number] 1{tbl} Take 1 Univers e-ethinyl 2-04 100 tablet by ity o f estradioL 00:00: mouth [place] 0.25-35 00 daily. Do Medical mg-mcg per not take Branc h tablet week of placebo pills. norgestimat 2019-04 Yes [id number] 1{tbl} Take 1 Univers e-ethinyl 2-04 100 tablet by ity o f estradioL 00:00: mouth [place] 0.25-35 00 daily. Do Medical mg-mcg per not take Branc h tablet week of placebo pills. norgestimat 2019-04 Yes [id number] 1{tbl} Take 1 Univers e-ethinyl 2-04 100 tablet by ity o f estradioL 00:00: mouth [place] 0.25-35 00 daily. Do Medical mg-mcg per not take Branc h tablet week of placebo pills. norgestimat 2019-04 Yes [id number] 1{tbl} Take 1 Univers e-ethinyl 2-04 100 tablet by ity o f estradioL 00:00: mouth [place] 0.25-35 00 daily. Do Medical mg-mcg per not take Branc h tablet week of placebo pills. norgestimat 2019-04- No [id number] 1{tbl} Take 1 Univers e-ethinyl 2-04 02-26 100 tablet by ity of estradioL 00:00: 00:00 mouth [place] 0.25-35 00 :00 daily. Do Medical mg-mcg per not take Branc h tablet week of placebo pills. norgestimat 2019-04 Yes [id number] 1{tbl} Take 1 Univers e-ethinyl 0-16 tablet by ity o f estradioL 00:00: mouth [place] 0.25-35 00 daily. Medical mg-mcg per Branch tablet medroxyPROG 2019-04 Yes [id number] 10mg Take 1 Univers ESTERone 0-16 100 tablet by ity of (PROVERA) 00:00: mouth [place] 10 mg 00 daily. Medical tablet Branch norgestimat 2020- Yes [id number] 1{tbl} Take 1 Univers e-ethinyl 0-16 tablet by ity o f estradioL 00:00: mouth [place] 0.25-35 00 daily. Medical mg-mcg per Branch tablet medroxyPROG 2020- Yes [id number] 10mg Take 1 Univers ESTERone 0-16 100 tablet by ity of (PROVERA) 00:00: mouth [place] 10 mg 00 daily. Medical tablet Branch norgestimat 2020- Yes [id number] 1{tbl} Take 1 Univers e-ethinyl 0-16 tablet by ity o f estradioL 00:00: mouth [place] 0.25-35 00 daily. Medical mg-mcg per Branch tablet medroxyPROG 2020- Yes [id number] 10mg Take 1 Univers ESTERone 0-16 100 tablet by ity of (PROVERA) 00:00: mouth [place] 10 mg 00 daily. Medical tablet Branch norgestimat 2020- Yes [id number] 1{tbl} Take 1 Univers e-ethinyl 0-16 tablet by ity o f estradioL 00:00: mouth [place] 0.25-35 00 daily. Medical mg-mcg per Branch tablet medroxyPROG 2020- Yes [id number] 10mg Take 1 Univers ESTERone 0-16 100 tablet by ity of (PROVERA) 00:00: mouth [place] 10 mg 00 daily. Medical tablet Branch norgestimat 2020- Yes [id number] 1{tbl} Take 1 Univers e-ethinyl 0-16 tablet by ity o f estradioL 00:00: mouth [place] 0.25-35 00 daily. Medical mg-mcg per Branch tablet medroxyPROG 2020- Yes [id number] 10mg Take 1 Univers ESTERone 0-16 100 tablet by ity of (PROVERA) 00:00: mouth [place] 10 mg 00 daily. Medical tablet Branch norgestimat 2020- Yes [id number] 1{tbl} Take 1 Univers e-ethinyl 0-16 tablet by ity o f estradioL 00:00: mouth [place] 0.25-35 00 daily. Medical mg-mcg per Branch tablet medroxyPROG 2020- Yes [id number] 10mg Take 1 Univers ESTERone 0-16 100 tablet by ity of (PROVERA) 00:00: mouth [place] 10 mg 00 daily. Medical tablet Branch norgestimat 2020- Yes [id number] 1{tbl} Take 1 Univers e-ethinyl 0-16 tablet by ity o f estradioL 00:00: mouth [place] 0.25-35 00 daily. Medical mg-mcg per Branch tablet medroxyPROG 2020- Yes [id number] 10mg Take 1 Univers ESTERone 0-16 100 tablet by ity of (PROVERA) 00:00: mouth [place] 10 mg 00 daily. Medical tablet Branch norgestimat 2020- Yes [id number] 1{tbl} Take 1 Univers e-ethinyl 0-16 tablet by ity o f estradioL 00:00: mouth [place] 0.25-35 00 daily. Medical mg-mcg per Branch tablet medroxyPROG 2020- Yes [id number] 10mg Take 1 Univers ESTERone 0-16 100 tablet by ity of (PROVERA) 00:00: mouth [place] 10 mg 00 daily. Medical tablet Branch norgestimat 2020- Yes [id number] 1{tbl} Take 1 Univers e-ethinyl 0-16 tablet by ity o f estradioL 00:00: mouth [place] 0.25-35 00 daily. Medical mg-mcg per Branch tablet medroxyPROG 2020- Yes [id number] 10mg Take 1 Univers ESTERone 0-16 100 tablet by ity of (PROVERA) 00:00: mouth [place] 10 mg 00 daily. Medical tablet Branch norgestimat 2020- Yes [id number] 1{tbl} Take 1 Univers e-ethinyl 0-16 tablet by ity o f estradioL 00:00: mouth [place] 0.25-35 00 daily. Medical mg-mcg per Branch tablet medroxyPROG 2020- Yes [id number] 10mg Take 1 Univers ESTERone 0-16 100 tablet by ity of (PROVERA) 00:00: mouth [place] 10 mg 00 daily. Medical tablet Branch norgestimat 2020- Yes [id number] 1{tbl} Take 1 Univers e-ethinyl 0-16 tablet by ity o f estradioL 00:00: mouth [place] 0.25-35 00 daily. Medical mg-mcg per Branch tablet medroxyPROG 2020- Yes [id number] 10mg Take 1 Univers ESTERone 0-16 100 tablet by ity of (PROVERA) 00:00: mouth [place] 10 mg 00 daily. Medical tablet Branch norgestimat 2019- Yes [id number] 1{tbl} Take 1 Univers e-ethinyl 0-16 tablet by ity o f estradioL 00:00: mouth [place] 0.25-35 00 daily. Medical mg-mcg per Branch tablet medroxyPROG 2020- Yes [id number] 10mg Take 1 Univers ESTERone 0-16 100 tablet by ity of (PROVERA) 00:00: mouth [place] 10 mg 00 daily. Medical tablet Branch norgestimat 2019-04 Yes [id number] 1{tbl} Take 1 Univers e-ethinyl 0-16 tablet by ity o f estradioL 00:00: mouth [place] 0.25-35 00 daily. Medical mg-mcg per Branch tablet medroxyPROG 2019- Yes [id number] 10mg Take 1 Univers ESTERone 0-16 100 tablet by ity of (PROVERA) 00:00: mouth [place] 10 mg 00 daily. Medical tablet Branch norgestimat 2019-04 Yes [id number] 1{tbl} Take 1 Univers e-ethinyl 0-16 tablet by ity o f estradioL 00:00: mouth [place] 0.25-35 00 daily. Medical mg-mcg per Branch tablet medroxyPROG 2019- Yes [id number] 10mg Take 1 Univers ESTERone 0-16 100 tablet by ity of (PROVERA) 00:00: mouth [place] 10 mg 00 daily. Medical tablet Branch norgestimat 2019-2020- No [id number] 1{tbl} Take 1 Univers e-ethinyl 0-16 02-26 tablet by ity of estradioL 00:00: 00:00 mouth [place] 0.25-35 00 :00 daily. Medical mg-mcg per Branch tablet medroxyPROG 2019-2020- No [id number] 10mg Take 1 Univers ESTERone 0-16 02-26 100 tablet by ity o f (PROVERA) 00:00: 00:00 mouth [place] 10 mg 00 :00 daily. Medical tablet Branch Norethindro 2020-0 Yes [id number] Take 1 Univers ne 7-07 tablet by ity of Acet-Ethiny 00:00: mouth [place] l Est 00 daily, Medical (MICROGESTI skip Branch N 1.09/12) placebo 1.5-30 pills and mg-mcg per start new tablet pack on day 22. Norethindro 2019-0 Yes [id number] Take 1 Univers ne 10-20 tablet by ity of Acet-Ethiny 00:00: mouth [place] l Est 00 daily, Medical (MICROGESTI skip Branch N 1.09/12) placebo 1.5-30 pills and mg-mcg per start new tablet pack on day 22. Norethindro 2019- 2020- No [id number] Take 1 Univers ne 10-20 tablet by ity of Acet-Ethiny 00:00: 00:00 [place] 00 :00 daily, Medical (MICROGESTI skip Branch N 1.09/12) placebo 1.5-30 pills and mg-mcg per start new tablet pack on day 22. Norethindro 2019-2019- No [id number] Take 1 Univers ne 10-20 tablet by ity of Acet-Ethiny 00:00: 00:00 [place] Est 00 :00 daily, Medical (MICROGESTI skip Branch N 1.09/12) placebo 1.5-30 pills and mg-mcg per start new tablet pack on day 22. cefTRIAXone No 250mg 250 mg, U nivers (ROCEPHIN) 07-08 Intramuscu it y of injection 23:45: 22:45 [place], [place]CE, [place] 250 mg 00 :00 1 dose, [facility] 07/09/19 at 1845, LINDSEY
Re ason for Anti-Infec tive: Empiric Therapy for Suspected Infection< br>Empiric Therapy Site: Pelvic
Duration of therapy: 72 hours cephALEXin No 500mg 500 mg, Un rachael (KEFLEX) 07-08 Oral, ity of capsule 500 23:30: 22:29 ONCE, 1 [place] mg 00 :00 dose, [facility] 07/09/19 at Branch 1830, LINDSEY
Re ason for Anti-Infec tive: Empiric Therapy for Suspected Infection< br>Empiric Therapy Site: Urine
D uration of therapy: 72 hours iohexol 2019- No 120mL 120 mL, Unive rs (OMNIPAQUE 07-08 Intravenou it y of 350 22:00: 22:00 s, ONCE, 1 [place] BULK-150 00 :00 dose, Wed Medica l mL) 07/09/19 at Branch injection 1700, 120 mL Routine traMADol 2019- No 50mg 50 mg, Univer s (ULTRAM) 07-08-25 Oral, ity of tablet 50 21:45: 21:32 ONCE, 1 [place] mg 00 :00 dose, Wed Medical 07/09/19 at Branch 1645, Routine doxycycline 2020- No [id number] 100mg Take 1 Univers hyclate 100 07-08-05 capsule by i ty of mg capsule 00:00: 04:59 mouth 2 [place] 00 :00 (two) Medical times Branch daily for 10 days. metroNIDAZO 2019- 2020- No [id number] 500mg Take 1 Univers LE 500 mg 07-08-02 tablet by ity of tablet 00:00: 04:59 mouth 2 [place] 00 :00 (two) Medical times Branch daily for 7 days. ondansetron 2019- 2020- No [id number] 4mg Take 1 Univers 4 mg 07-08- tablet by ity of disintegrat 00:00: 04:59 [place] tablet 00 :00 every 8 Medica l (eight) Branch hours as needed for Nausea and Vomiting (N/V) for up to 5 days. traMADol 50 2019- 2020- No [id number] 50mg Take 1 Univers mg tablet 07-08- tablet by ity of 00:00: 04:59 mouth [place] 00 :00 every 6 Medical (six) Branch hours as needed for Pain (scale 7-10) for up to 5 days. 2018- Yes [id number] 1{tbl} Take 1 Univers vitamin 0-01 102 tablet by ity of w/FA tablet 00:00: mouth [place] 00 daily. Medical Branch 2018- Yes [id number] 1{tbl} Take 1 Univers vitamin 0-01 102 tablet by ity of w/FA tablet 00:00: mouth [place] 00 daily. Medical Branch 2019- Yes [id number] 1{tbl} Take 1 Univers vitamin 0-01 102 tablet by ity of w/FA tablet 00:00: mouth [place] 00 daily. Medical Branch 2019- Yes [id number] 1{tbl} Take 1 Univers vitamin 0-01 102 tablet by ity of w/FA tablet 00:00: mouth [place] 00 daily. Medical Branch 2019- Yes [id number] 1{tbl} Take 1 Univers vitamin 0-01 102 tablet by ity of w/FA tablet 00:00: mouth [place] 00 daily. Medical Branch 2019- Yes [id number] 1{tbl} Take 1 Univers vitamin 0-01 102 tablet by ity of w/FA tablet 00:00: mouth [place] 00 daily. Medical Branch 2019- Yes [id number] 1{tbl} Take 1 Univers vitamin 0-01 102 tablet by ity of w/FA tablet 00:00: mouth [place] 00 daily. Medical Branch 2019- Yes [id number] 1{tbl} Take 1 Univers vitamin 0-01 102 tablet by ity of w/FA tablet 00:00: mouth [place] 00 daily. Medical Branch 2019 Yes [id number] 1{tbl} Take 1 Univers vitamin 0-01 102 tablet by ity of w/FA tablet 00:00: mouth [place] 00 daily. Medical Branch 2019 Yes [id number] 1{tbl} Take 1 Univers vitamin 0-01 102 tablet by ity of w/FA tablet 00:00: mouth [place] 00 daily. Medical [place] 2019- Yes [id number] 1{tbl} Take 1 Univers vitamin 0-01 102 tablet by ity of w/FA tablet 00:00: mouth [place] 00 daily. Medical Branch 2019- Yes [id number] 1{tbl} Take 1 Univers vitamin 0-01 102 tablet by ity of w/FA tablet 00:00: mouth [place] 00 daily. Medical Branch 2019- 2020- No [id number] 1{tbl} Take 1 Univers vitamin 0-01 07-07 102 tablet by ity of w/FA tablet 00:00: 00:00 [place] :00 daily. Medical [place] 2019- 2020- No [id number] 1{tbl} Take 1 Univers vitamin 0-01 07-07 102 tablet by ity of w/FA tablet 00:00: [place] :00 daily. [facility] iron 2018- 2019- No 300mg 300 mg, IV Unive rs sucrose 12-31 Infusion, ity of (VENOFER) 15:30: 17:08 ONCE, [place] 300 mg in 00 :00 12/31/18 at [facility] gali NaCl 0.9% 1030, For Branc h (NS) 250 mL 1 dose infusion ferrous 2018- Yes [id number] 325mg Take 1 Un rachael sulfate 8-07 tablet by ity of (IRON, 00:00: mouth 2 [place] FERROUS 00 (two) Medical SULFATE,) times Branch 325 mg (65 daily. mg iron) tablet ferrous 2018- Yes [id number] 325mg Take 1 Un rachael sulfate 8-07 tablet by ity of (IRON, 00:00: mouth 2 [place] FERROUS 00 (two) Medical SULFATE,) times Branch 325 mg (65 daily. mg iron) tablet ascorbic Yes [id number] 500mg Take 1 U nivers acid, 8-07 tablet by ity of vitamin C, 00:00: mouth 3 [place] 500 mg 00 (three) Medical tablet times Branch daily. ferrous 2018- Yes [id number] 325mg Take 1 Un rachael sulfate 325 8-07 tablet by ity of mg (65 mg 00:00: mouth 2 [place] iron) 00 (two) Medical tablet times Branch daily. ferrous 2018- Yes [id number] 325mg Take 1 Un rachael sulfate 8-07 tablet by ity of (IRON, 00:00: mouth 2 [place] FERROUS 00 (two) Medical SULFATE,) times Branch 325 mg (65 daily. mg iron) tablet ascorbic Yes [id number] 500mg Take 1 U nivers acid, 8-07 tablet by ity of vitamin C, 00:00: mouth 3 [place] 500 mg 00 (three) Medical tablet times Branch daily. ferrous 2018- Yes [id number] 325mg Take 1 Un rachael sulfate 325 8-07 tablet by ity of mg (65 mg 00:00: mouth 2 [place] iron) 00 (two) Medical tablet times Branch daily. ferrous 2018- Yes [id number] 325mg Take 1 Un rachael sulfate 8-07 tablet by ity of (IRON, 00:00: mouth 2 [place] FERROUS 00 (two) Medical SULFATE,) times Branch 325 mg (65 daily. mg iron) tablet ascorbic 2019-0 Yes [id number] 500mg Take 1 U nivers acid, 8-07 tablet by ity of vitamin C, 00:00: mouth 3 [place] 500 mg 00 (three) Medical tablet times Branch daily. ferrous 2019-0 Yes [id number] 325mg Take 1 Un rachael sulfate 325 8-07 tablet by ity of mg (65 mg 00:00: mouth 2 [place] iron) 00 (two) Medical tablet times Branch daily. ascorbic 2019-0 Yes [id number] 500mg Take 1 U nivers acid, 8-07 tablet by [facility] vitamin C, 00:00: [place] 500 mg 00 (three) Medical tablet times Branch daily. ferrous 2019-0 Yes [id number] 325mg Take 1 Un rachael sulfate 325 8-07 tablet by ity of mg (65 mg 00:00: mouth 2 [place] iron) 00 (two) Medical tablet times Branch daily. ascorbic 2019-0 Yes [id number] 500mg Take 1 [facility] nivers acid, 8-07 tablet by [facility] vitamin C, 00:00: mouth [place] 500 mg 00 (three) Medical tablet times Branch daily. ferrous 2019-0 Yes [id number] 325mg Take 1 Un rachael sulfate 325 8-07 tablet by ity of mg (65 mg 00:00: mouth 2 [place] iron) 00 (two) Medical tablet times Branch daily. ascorbic 2019-0 Yes [id number] 500mg Take 1 [facility] nivers acid, 8-07 tablet by [facility] vitamin C, 00:00: mouth [place] 500 mg 00 (three) Medical tablet times Branch daily. ferrous 2019-0 Yes [id number] 325mg Take 1 Un [place] sulfate 325 8-07 tablet by ity of mg (65 mg 00:00: mouth 2 [place] iron) 00 (two) Medical tablet times Branch daily. ascorbic 2019-0 Yes [id number] 500mg Take 1 [facility] nivers acid, 8-07 tablet by [facility] vitamin C, 00:00: mouth [place] 500 mg 00 (three) Medical tablet times Branch daily. ferrous 2019-0 Yes [id number] 325mg Take 1 Un rach[place] sulfate 325 8-07 tablet by ity of mg (65 mg 00:00: mouth 2 [place] iron) 00 (two) Medical tablet times Branch daily. ascorbic 2019-0 Yes [id number] 500mg Take 1 [facility] nivers acid, 8-07 tablet by [facility] vitamin C, 00:00: mouth [place] 500 mg 00 (three) Medical tablet times Branch daily. ferrous 2019-0 Yes [id number] 325mg Take 1 Un [place]ach[place] sulfate 325 8-07 tablet by ity of mg (65 mg 00:00: mouth 2 [place] iron) 00 (two) Medical tablet times Branch daily. ascorbic 2019-0 Yes [id number] 500mg Take 1 [facility] nivers acid, 8-07 tablet by [facility] of vitamin C, 00:00: mouth 3 [place] 500 mg 00 (three) Medical tablet times Branch daily. ferrous 2019-0 Yes [id number] 325mg Take 1 Un rach[place] sulfate 325 8-07 tablet by ity of mg (65 mg 00:00: mouth 2 [place] iron) 00 (two) Medical tablet times Branch daily. ascorbic 2019-0 Yes [id number] 500mg Take 1 [facility] nivers acid, 8-07 tablet by [facility] vitamin C, 00:00: mouth 3 [place] 500 mg 00 (three) Medical tablet times Branch daily. ferrous 2019-0 Yes [id number] 325mg Take 1 Un rach[place] sulfate 325 8-07 tablet by ity of mg (65 mg 00:00: mouth 2 [place] iron) 00 (two) Medical tablet times Branch daily. ascorbic 2019-0 Yes [id number] 500mg Take 1 U nivers acid, 8-07 tablet by [facility] of vitamin C, 00:00: mouth 3 [place] 500 mg 00 (three) Medical tablet times Branch daily. ferrous 2019-0 Yes [id number] 325mg Take 1 Un [place] sulfate 325 8-07 tablet by ity of mg (65 mg 00:00: mouth 2 [place] iron) 00 (two) Medical tablet times Branch daily. ascorbic 2019-0 Yes [id number] 500mg Take 1 [facility] nivers acid, 8-07 tablet by [facility] of vitamin C, 00:00: mouth 3 [place] 500 mg 00 (three) Medical tablet times Branch daily. ferrous 2019-0 Yes [id number] 325mg Take 1 Un [place] sulfate 325 8-07 tablet by ity of mg (65 mg 00:00: mouth 2 [place] iron) 00 (two) Medical tablet times Branch daily. ascorbic 2019-0 Yes [id number] 500mg Take 1 U nivers acid, 8-07 tablet by [facility] of vitamin C, 00:00: mouth 3 [place] 500 mg 00 (three) Medical tablet times Branch daily. ferrous 2019-0 Yes [id number] 325mg Take 1 Un [place] sulfate 325 8-07 tablet by ity of mg (65 mg 00:00: mouth 2 [place] iron) 00 (two) Medical tablet times Branch daily. ascorbic 2019-0 Yes [id number] 500mg Take 1 U nivers acid, 8-07 tablet by [facility] of vitamin C, 00:00: mouth 3 [place] 500 mg 00 (three) Medical tablet times Branch daily. ferrous 2019-0 Yes [id number] 325mg Take 1 Un [place] sulfate 325 8-07 tablet by ity of mg (65 mg 00:00: mouth 2 [place] iron) 00 (two) Medical tablet times Branch daily. ascorbic 2019-0 Yes [id number] 500mg Take 1 [facility] nivers acid, 8-07 tablet by [facility] of vitamin C, 00:00: mouth 3 [place] 500 mg 00 (three) Medical tablet times Branch daily. ferrous 2019-0 Yes [id number] 325mg Take 1 Un [place]ach[place] sulfate 325 8-07 tablet by ity of mg (65 mg 00:00: mouth 2 [place] iron) 00 (two) Medical tablet times Branch daily. ascorbic 2019-0 Yes [id number] 500mg Take 1 [facility] nivers acid, 8-07 tablet by [facility] of vitamin C, 00:00: mouth 3 [place] 500 mg 00 (three) Medical tablet times Branch daily. ferrous 2019-0 Yes [id number] 325mg Take 1 Un [place] sulfate 325 8-07 tablet by ity of mg (65 mg 00:00: mouth 2 [place] iron) 00 (two) Medical tablet times Branch daily. ascorbic 2019-0 Yes [id number] 500mg Take 1 U nivers acid, 8-07 tablet by [facility] of vitamin C, 00:00: mouth 3 [place] 500 mg 00 (three) Medical tablet times Branch daily. ferrous 2019-0 Yes [id number] 325mg Take 1 Un [place] sulfate 325 8-07 tablet by ity of mg (65 mg 00:00: mouth 2 [place] iron) 00 (two) Medical tablet times Branch daily. ascorbic 2019-0 Yes [id number] 500mg Take 1 [facility] nivers acid, 8-07 tablet by [facility] of vitamin C, 00:00: mouth 3 [place] 500 mg 00 (three) Medical tablet times Branch daily. ferrous 2019-0 Yes [id number] 325mg Take 1 Un [place] sulfate 325 8-07 tablet by ity of mg (65 mg 00:00: mouth 2 [place] iron) 00 (two) Medical tablet times Branch daily. ascorbic 2019-0 Yes [id number] 500mg Take 1 [facility] nivers acid, 8-07 tablet by [facility] of vitamin C, 00:00: mouth 3 [place] 500 mg 00 (three) Medical tablet times Branch daily. ferrous 2019-0 Yes [id number] 325mg Take 1 Un [place] sulfate 325 8-07 tablet by ity of mg (65 mg 00:00: mouth 2 [place] iron) 00 (two) Medical tablet times Branch daily. ascorbic 2019-0 Yes [id number] 500mg Take 1 U nivers acid, 8-07 tablet by [facility] of vitamin C, 00:00: mouth 3 [place] 500 mg 00 (three) Medical tablet times Branch daily. ferrous 2019-0 Yes [id number] 325mg Take 1 Un [place] sulfate 325 8-07 tablet by ity of mg (65 mg 00:00: mouth 2 [place] iron) 00 (two) Medical tablet times Branch daily. ascorbic 2019-0 Yes [id number] 500mg Take 1 U nivers acid, 8-07 tablet by [facility] of vitamin C, 00:00: mouth 3 [place] 500 mg 00 (three) Medical tablet times Branch daily. ferrous 2019-0 Yes [id number] 325mg Take 1 Un [place] sulfate 325 8-07 tablet by ity of mg (65 mg 00:00: mouth 2 [place] iron) 00 (two) Medical tablet times Branch daily. ascorbic 2019-0 Yes [id number] 500mg Take 1 [facility] nivers acid, 8-07 tablet by [facility] of vitamin C, 00:00: mouth 3 [place] 500 mg 00 (three) Medical tablet times Branch daily. ferrous 2019-0 Yes [id number] 325mg Take 1 Un r[place] sulfate 325 8-07 tablet by ity of mg (65 mg 00:00: mouth 2 [place] iron) 00 (two) Medical tablet times Branch daily. ascorbic 2019-0 Yes [id number] 500mg Take 1 [facility] nivers acid, 8-07 tablet by [facility] of vitamin C, 00:00: mouth 3 [place] 500 mg 00 (three) Medical tablet times Branch daily. ferrous 2019-0 Yes [id number] 325mg Take 1 Un rach[place] sulfate 325 8-07 tablet by ity of mg (65 mg 00:00: mouth 2 [place] iron) 00 (two) Medical tablet times Branch daily. ascorbic 2019-0 Yes [id number] 500mg Take 1 U nivers acid, 8-07 tablet by [facility] of vitamin C, 00:00: mouth 3 [place] 500 mg 00 (three) Medical tablet times Branch daily. ferrous 2019-0 Yes [id number] 325mg Take 1 Un rach[place] sulfate 325 8-07 tablet by ity of mg (65 mg 00:00: mouth 2 [place] iron) 00 (two) Medical tablet times Branch daily. ascorbic 2019-0 Yes [id number] 500mg Take 1 [facility] nivers acid, 8-07 tablet by [facility] of vitamin C, 00:00: mouth 3 [place] 500 mg 00 (three) Medical tablet times Branch daily. ferrous 2019-0 Yes [id number] 325mg Take 1 Un r[place] sulfate 325 8-07 tablet by ity of mg (65 mg 00:00: mouth 2 [place] iron) 00 (two) Medical tablet times Branch daily. ascorbic 2019-0 Yes [id number] 500mg Take 1 U nivers acid, 8-07 tablet by [facility] of vitamin C, 00:00: mouth 3 [place] 500 mg 00 (three) Medical tablet times Branch daily. ferrous 2019-0 Yes [id number] 325mg Take 1 Un [place]ach[place] sulfate 325 8-07 tablet by ity of mg (65 mg 00:00: mouth 2 [place] iron) 00 (two) Medical tablet times Branch daily. ascorbic 2019-0 Yes [id number] 500mg Take 1 U nivers acid, 8-07 tablet by [facility] of vitamin C, 00:00: mouth 3 [place] 500 mg 00 (three) Medical tablet times Branch daily. ferrous 2019-0 Yes [id number] 325mg Take 1 Un [place]ach[place] sulfate 325 8-07 tablet by ity of mg (65 mg 00:00: mouth 2 [place] iron) 00 (two) Medical tablet times Branch daily. ascorbic 2020- No [id number] 500mg Take 1 [facility] acid, 8-07 07-07 tablet by ity of vitamin C, 00:00: 00:00 mouth 3 [place] 500 mg 00 :00 (three) Medical tablet times Branch daily. ferrous 2018- 2020- No [id number] 325mg Take 1 U nivers sulfate 325 8-07 07-07 tablet by it y of mg (65 mg 00:00: 00:00 mouth [place] iron) 00 :00 (two) Medical tablet times Branch daily. ascorbic 2019- No [id number] 500mg Take 1 [facility] acid, 11-20 tablet by ity of vitamin C, 00:00: 00:00 mouth 3 [place] 500 mg 00 :00 (three) Medical tablet times Branch daily. ferrous 2020- No [id number] 325mg Take 1 U nivers sulfate 325 11-20 tablet by it y of mg (65 mg 00:00: 00:00 mouth [place] iron) 00 :00 (two) Medical tablet times Branch daily. ferrous 2018- No [id number] 325mg Take 1 U nivers sulfate 11-20 tablet by ity of (IRON, 00:00: 00:00 mouth 2 [place] FERROUS 00 :00 (two) Medical SULFATE,) times Branch 325 mg (65 daily. mg iron) tablet polyethylen Yes [id number] 17g Take 17 g [facility] e glycol 17 5-31 by mouth 2 it y of gram/dose 00:00: (two) [place] powder 00 times Medical daily. Branch polyethylen Yes [id number] 17g Take 17 g [facility] e glycol 17 5-31 by mouth 2 it y of gram/dose 00:00: (two) [place] powder 00 times Medical daily. Branch polyethylen Yes [id number] 17g Take 17 g [facility] e glycol 17 5-31 by mouth 2 it y of gram/dose 00:00: (two) [place] powder 00 times Medical daily. Branch polyethylen 2018- Yes [id number] 17g Take 17 g [facility] e glycol 17 5-31 by mouth 2 it y of gram/dose 00:00: (two) [place] powder 00 times Medical daily. Branch polyethylen 2018- Yes [id number] 17g Take 17 g [facility] e glycol 17 5-31 by mouth 2 it y of gram/dose 00:00: (two) [place] powder 00 times Medical daily. Branch polyethylen 2018- Yes [id number] 17g Take 17 g [facility] e glycol 17 5-31 by mouth 2 it y of gram/dose 00:00: (two) [place] powder 00 times Medical daily. Branch polyethylen 2019-0 Yes [id number] 17g Take 17 g [facility] e glycol 17 5-31 by mouth 2 it y of gram/dose 00:00: (two) [place] powder 00 times Medical daily. Branch polyethylen 2019-0 Yes [id number] 17g Take 17 g [facility] e glycol 17 5-31 by mouth 2 it y of gram/dose 00:00: (two) [place] powder 00 times Medical daily. Branch polyethylen 2019-0 Yes [id number] 17g Take 17 g [facility] e glycol 17 5-31 by mouth 2 it y of gram/dose 00:00: (two) [place] powder 00 times Medical daily. Branch polyethylen 2019-0 Yes [id number] 17g Take 17 g [facility] e glycol 17 5-31 by mouth 2 it y of gram/dose 00:00: (two) [place] powder 00 times Medical daily. Branch polyethylen 2019-0 Yes [id number] 17g Take 17 g [facility] e glycol 17 5-31 by mouth 2 it y of gram/dose 00:00: (two) [place] powder 00 times Medical daily. Branch polyethylen 2019-0 Yes [id number] 17g Take 17 g [facility] e glycol 17 5-31 by mouth 2 it y of gram/dose 00:00: (two) [place] powder 00 times Medical daily. Branch polyethylen 2019-0 Yes [id number] 17g Take 17 g [facility] e glycol 17 5-31 by mouth 2 it y of gram/dose 00:00: (two) [place] powder 00 times Medical daily. Branch polyethylen 2019-0 Yes [id number] 17g Take 17 g [facility] e glycol 17 5-31 by mouth 2 it y of gram/dose 00:00: (two) [place] powder 00 times Medical daily. Branch polyethylen 2019-0 Yes [id number] 17g Take 17 g [facility] e glycol 17 5-31 by mouth 2 it y of gram/dose 00:00: (two) [place] powder 00 times Medical daily. Branch polyethylen 2019-0 Yes [id number] 17g Take 17 g [facility] e glycol 17 5-31 by mouth 2 it y of gram/dose 00:00: (two) [place] powder 00 times Medical daily. Branch polyethylen 2019-0 Yes [id number] 17g Take 17 g [facility] e glycol 17 5-31 by mouth 2 it y of gram/dose 00:00: (two) [place] powder 00 times Medical daily. Branch polyethylen 2019-0 Yes [id number] 17g Take 17 g [facility] e glycol 17 5-31 by mouth 2 it y of gram/dose 00:00: (two) [place] powder 00 times Medical daily. Branch polyethylen 2019-0 Yes [id number] 17g Take 17 g [facility] e glycol 17 5-31 by mouth 2 it y of gram/dose 00:00: (two) [place] powder 00 times Medical daily. Branch polyethylen 2019-0 Yes [id number] 17g Take 17 g [facility] e glycol 17 5-31 by mouth 2 it y of gram/dose 00:00: (two) [place] powder 00 times Medical daily. Branch polyethylen 2019-0 Yes [id number] 17g Take 17 g [facility] e glycol 17 5-31 by mouth 2 it y of gram/dose 00:00: (two) [place] powder 00 times Medical daily. Branch polyethylen 2019-0 Yes [id number] 17g Take 17 g [facility] e glycol 17 5-31 by mouth 2 it y of gram/dose 00:00: (two) [place] powder 00 times Medical daily. Branch polyethylen 2019-0 Yes [id number] 17g Take 17 g [facility] e glycol 17 5-31 by mouth 2 it y of gram/dose 00:00: (two) [place] powder 00 times Medical daily. Branch polyethylen 2019-0 Yes [id number] 17g Take 17 g [facility] e glycol 17 5-31 by mouth 2 it y of gram/dose 00:00: (two) [place] powder 00 times Medical daily. Branch polyethylen 2019-0 Yes [id number] 17g Take 17 g [facility] e glycol 17 5-31 by mouth 2 it y of gram/dose 00:00: (two) [place] powder 00 times Medical daily. Branch polyethylen 2019-0 Yes [id number] 17g Take 17 g [facility] e glycol 17 5-31 by mouth 2 it y of gram/dose 00:00: (two) [place] powder 00 times Medical daily. Branch polyethylen 2019-0 Yes [id number] 17g Take 17 g [facility] e glycol 17 5-31 by mouth 2 it y of gram/dose 00:00: (two) [place] powder 00 times Medical daily. Branch polyethylen 2019-0 Yes [id number] 17g Take 17 g [facility] e glycol 17 5-31 by mouth 2 it y of gram/dose 00:00: (two) [place] powder 00 times Medical daily. Branch polyethylen Yes [id number] 17g Take 17 g [facility] e glycol 17 5-31 by mouth 2 it y of gram/dose 00:00: (two) [place] powder 00 times Medical daily. Branch polyethylen 2020- No [id number] 17g Take 17 g [facility] e glycol 17 5-31 -25 by mouth 2 i ty of gram/dose 00:00: 00:00 (two) [place] powder 00 :00 times Medical daily. Branch polyethylen 2020- No [id number] 17g Take 17 g [facility] e glycol 17 5-31 -25 by mouth 2 i ty of gram/dose 00:00: 00:00 (two) [place] powder 00 :00 times Medical daily. Branch FLUoxetine Yes [id number] 20mg Take 1 U nivers (PROZAC) 20 5-23 capsule by it y of mg capsule 00:00: mouth [place] 00 daily. Medical Branch FLUoxetine Yes [id number] 20mg Take 1 [facility] nivers (PROZAC) 20 5-23 capsule by it y of mg capsule 00:00: mouth [place] 00 daily. Medical Branch FLUoxetine Yes [id number] 20mg Take 1 [facility] nivers (PROZAC) 20 5-23 capsule by it y of mg capsule 00:00: mouth [place] 00 daily. Medical Branch FLUoxetine Yes [id number] 20mg Take 1 U nivers (PROZAC) 20 5-23 capsule by it y of mg capsule 00:00: mouth [place] 00 daily. Medical Branch FLUoxetine Yes [id number] 20mg Take 1 U nivers (PROZAC) 20 5-23 capsule by it y of mg capsule 00:00: mouth [place] 00 daily. Medical Branch FLUoxetine 2018- Yes [id number] 20mg Take 1 U nivers (PROZAC) 20 5-23 capsule by it y of mg capsule 00:00: mouth [place] 00 daily. [facility] Branch FLUoxetine Yes [id number] 20mg Take 1 U nivers (PROZAC) 20 5-23 capsule by it y of mg capsule 00:00: mouth [place] 00 daily. Medical Branch FLUoxetine 2018-0 Yes [id number] 20mg Take 1 U nivers (PROZAC) 20 5-23 capsule by it y of mg capsule 00:00: mouth [place] 00 daily. Medical Branch FLUoxetine 2018-0 Yes [id number] 20mg Take 1 U nivers (PROZAC) 20 5-23 capsule by it y of mg capsule 00:00: mouth [place] 00 daily. Medical Branch FLUoxetine 2018- Yes [id number] 20mg Take 1 U nivers (PROZAC) 20 5-23 capsule by it y of mg capsule 00:00: mouth [place] 00 daily. Medical Branch FLUoxetine 0 Yes [id number] 20mg Take 1 U nivers (PROZAC) 20 5-23 capsule by it y of mg capsule 00:00: mouth [place] 00 daily. Medical Branch FLUoxetine 0 Yes [id number] 20mg Take 1 U nivers (PROZAC) 20 5-23 capsule by it y of mg capsule 00:00: mouth [place] 00 daily. Medical Branch FLUoxetine Yes [id number] 20mg Take 1 U nivers (PROZAC) 20 5-23 capsule by it y of mg capsule 00:00: mouth [place] 00 daily. Medical Branch FLUoxetine Yes [id number] 20mg Take 1 U nivers (PROZAC) 20 5-23 capsule by it y of mg capsule 00:00: mouth [place] 00 daily. Medical Branch FLUoxetine 0 Yes [id number] 20mg Take 1 U nivers (PROZAC) 20 5-23 capsule by it y of mg capsule 00:00: mouth [place] 00 daily. Medical Branch FLUoxetine 2018-0 Yes [id number] 20mg Take 1 U nivers (PROZAC) 20 5-23 capsule by it y of mg capsule 00:00: mouth [place] 00 daily. Medical Branch FLUoxetine 2018-0 Yes [id number] 20mg Take 1 U nivers (PROZAC) 20 5-23 capsule by it y of mg capsule 00:00: mouth [place] 00 daily. Medical Branch FLUoxetine 2019-0 Yes [id number] 20mg Take 1 U nivers (PROZAC) 20 5-23 capsule by it y of mg capsule 00:00: mouth [place] 00 daily. Medical Branch FLUoxetine 2018-0 Yes [id number] 20mg Take 1 U nivers (PROZAC) 20 5-23 capsule by it y of mg capsule 00:00: mouth [place] 00 daily. Medical Branch FLUoxetine 2018-0 Yes [id number] 20mg Take 1 U nivers (PROZAC) 20 5-23 capsule by it y of mg capsule 00:00: mouth [place] 00 daily. Medical Branch FLUoxetine 2018-0 Yes [id number] 20mg Take 1 U nivers (PROZAC) 20 5-23 capsule by it y of mg capsule 00:00: mouth [place] 00 daily. Medical Branch FLUoxetine Yes [id number] 20mg Take 1 U nivers (PROZAC) 20 5-23 capsule by it y of mg capsule 00:00: mouth [place] 00 daily. Medical Branch FLUoxetine Yes [id number] 20mg Take 1 U nivers (PROZAC) 20 5-23 capsule by it y of mg capsule 00:00: mouth [place] 00 daily. Medical Branch FLUoxetine Yes [id number] 20mg Take 1 U nivers (PROZAC) 20 5-23 capsule by it y of mg capsule 00:00: mouth [place] 00 daily. Medical Branch FLUoxetine Yes [id number] 20mg Take 1 U nivers (PROZAC) 20 5-23 capsule by it y of mg capsule 00:00: mouth [place] 00 daily. Medical Branch FLUoxetine Yes [id number] 20mg Take 1 U nivers (PROZAC) 20 5-23 capsule by it y of mg capsule 00:00: mouth [place] 00 daily. Medical Branch FLUoxetine Yes [id number] 20mg Take 1 U nivers (PROZAC) 20 5-23 capsule by it y of mg capsule 00:00: mouth [place] 00 daily. Medical Branch FLUoxetine 2018- Yes [id number] 20mg Take 1 U nivers (PROZAC) 20 5-23 capsule by it y of mg capsule 00:00: mouth [place] 00 daily. Medical Branch FLUoxetine Yes [id number] 20mg Take 1 U nivers (PROZAC) 20 5-23 capsule by it y of mg capsule 00:00: mouth [place] 00 daily. [facility] Branch FLUoxetine 2018-0 2020- No [id number] 20mg Take 1 [facility] (PROZAC) 20 5-23 03-25 capsule by i ty of mg capsule 00:00: 00:00 mouth [place] 00 :00 daily. Medical Branch FLUoxetine 2018-0 2020- No [id number] 20mg Take 1 [facility] (PROZAC) 20 5-23 03-25 capsule by i ty of mg capsule 00:00: 00:00 mouth [place] 00 :00 daily. Medical Branch PNV 2019-0 Yes [id number] 3{tbl} Take 3 Unive rs 112-iron-FA 4-18 tablets by it y of -om-3s-dha- 00:00: mouth [place] epa 00 daily. Medical (VITAFOL Branch GUMMIES) 3.33 mg iron- 0.33 mg Chew PNV 2019-0 Yes [id number] 3{tbl} Take 3 Unive rs 112-iron-FA 4-18 tablets by it y of -om-3s-dha- 00:00: mouth [place] epa 00 daily. Medical (VITAFOL Branch GUMMIES) 3.33 mg iron- 0.33 mg Chew PNV 2019-0 Yes [id number] 3{tbl} Take 3 Unive rs 112-iron-FA 4-18 tablets by it y of -om-3s-dha- 00:00: mouth [place] epa 00 daily. Medical (VITAFOL Branch GUMMIES) 3.33 mg iron- 0.33 mg Chew PNV 2019-0 Yes [id number] 3{tbl} Take 3 Unive rs 112-iron-FA 4-18 tablets by it y of -om-3s-dha- 00:00: mouth [place] epa 00 daily. Medical (VITAFOL Branch GUMMIES) 3.33 mg iron- 0.33 mg Chew PNV 2019-0 Yes [id number] 3{tbl} Take 3 Unive rs 112-iron-FA 4-18 tablets by it y of -om-3s-dha- 00:00: mouth [place] epa 00 daily. Medical (VITAFOL Branch GUMMIES) 3.33 mg iron- 0.33 mg Chew PNV 2019-0 Yes [id number] 3{tbl} Take 3 Unive rs 112-iron-FA 4-18 tablets by it y of -om-3s-dha- 00:00: mouth [place] epa 00 daily. Medical (VITAFOL Branch GUMMIES) 3.33 mg iron- 0.33 mg Chew PNV 2019-0 Yes [id number] 3{tbl} Take 3 Unive rs 112-iron-FA 4-18 tablets by it y of -om-3s-dha- 00:00: mouth [place] epa 00 daily. Medical (VITAFOL Branch GUMMIES) 3.33 mg iron- 0.33 mg Chew PNV 2019-0 Yes [id number] 3{tbl} Take 3 Unive rs 112-iron-FA 4-18 tablets by it y of -om-3s-dha- 00:00: mouth [place] epa 00 daily. Medical (VITAFOL Branch GUMMIES) 3.33 mg iron- 0.33 mg Chew PNV 2019-0 Yes [id number] 3{tbl} Take 3 Unive rs 112-iron-FA 4-18 tablets by it y of -om-3s-dha- 00:00: mouth [place] epa 00 daily. Medical (VITAFOL Branch GUMMIES) 3.33 mg iron- 0.33 mg Chew PNV 2019-0 Yes [id number] 3{tbl} Take 3 Unive rs 112-iron-FA 4-18 tablets by it y of -om-3s-dha- 00:00: mouth [place] epa 00 daily. Medical (VITAFOL Branch GUMMIES) 3.33 mg iron- 0.33 mg Chew PNV 2018-0 Yes [id number] 3{tbl} Take 3 Unive rs 112-iron-FA 4-18 tablets by it y of -om-3s-dha- 00:00: mouth [place] epa 00 daily. Medical (VITAFOL Branch GUMMIES) 3.33 mg iron- 0.33 mg Chew PNV 2018-0 Yes [id number] 3{tbl} Take 3 Unive rs 112-iron-FA 4-18 tablets by it y of -om-3s-dha- 00:00: mouth [place] epa 00 daily. Medical (VITAFOL Branch GUMMIES) 3.33 mg iron- 0.33 mg Chew PNV 2019-0 Yes [id number] 3{tbl} Take 3 Unive rs 112-iron-FA 4-18 tablets by it y of -om-3s-dha- 00:00: mouth [place] epa 00 daily. Medical (VITAFOL Branch GUMMIES) 3.33 mg iron- 0.33 mg Chew PNV 2019-0 Yes [id number] 3{tbl} Take 3 Unive rs 112-iron-FA 4-18 tablets by it y of -om-3s-dha- 00:00: mouth [place] epa 00 daily. Medical (VITAFOL Branch GUMMIES) 3.33 mg iron- 0.33 mg Chew PNV 2019-0 Yes [id number] 3{tbl} Take 3 Unive rs 112-iron-FA 4-18 tablets by it y of -om-3s-dha- 00:00: mouth [place] epa 00 daily. Medical (VITAFOL Branch GUMMIES) 3.33 mg iron- 0.33 mg Chew PNV Yes [id number] 3{tbl} Take 3 Unive rs 112-iron-FA 4-18 tablets by it y of -om-3s-dha- 00:00: mouth [place] epa 00 daily. Medical (VITAFOL Branch GUMMIES) 3.33 mg iron- 0.33 mg Chew PNV Yes [id number] 3{tbl} Take 3 Unive rs 112-iron-FA 4-18 tablets by it y of -om-3s-dha- 00:00: mouth [place] epa 00 daily. Medical (VITAFOL Branch GUMMIES) 3.33 mg iron- 0.33 mg Chew PNV Yes [id number] 3{tbl} Take 3 Unive rs 112-iron-FA 4-18 tablets by it y of -om-3s-dha- 00:00: mouth [place] epa 00 daily. Medical (VITAFOL Branch GUMMIES) 3.33 mg iron- 0.33 mg Chew PNV Yes [id number] 3{tbl} Take 3 Unive rs 112-iron-FA 4-18 tablets by it y of -om-3s-dha- 00:00: mouth [place] epa 00 daily. Medical (VITAFOL Branch GUMMIES) 3.33 mg iron- 0.33 mg Chew PNV Yes [id number] 3{tbl} Take 3 Unive rs 112-iron-FA 4-18 tablets by it y of -om-3s-dha- 00:00: mouth [place] epa 00 daily. Medical (VITAFOL Branch GUMMIES) 3.33 mg iron- 0.33 mg Chew PNV 2019 Yes [id number] 3{tbl} Take 3 Unive rs 112-iron-FA 4-18 tablets by it y of -om-3s-dha- 00:00: mouth [place] epa 00 daily. Medical (VITAFOL Branch GUMMIES) 3.33 mg iron- 0.33 mg Chew No known No [facility] medications ity of [facility] Branch Immunizations Ordered Filled Immunization Date Status Comments [facility] e Immunization Name Name TDAP (ADACEL) 2018-12-12 Completed University of VACCINE 00:00:00 [facility] TDAP (ADACEL) 2018-12-12 Completed University of VACCINE 00:00:00 [facility] Branch TDAP (ADACEL) 2018-12-12 Completed University of VACCINE 00:00:00 [facility] TDAP (ADACEL) 2018-12-12 Completed University of VACCINE 00:00:00 [facility] TDAP (ADACEL) 2018-12-12 Completed University of VACCINE 00:00:00 [facility] Branch TDAP (ADACEL) 2018-12-12 Completed University of VACCINE 00:00:00 [facility] TDAP (ADACEL) 2018-12-12 Completed University of VACCINE 00:00:00 [facility] Branch TDAP (ADACEL) 2018-12-12 Completed University of VACCINE 00:00:00 [facility] TDAP (ADACEL) 2018-12-12 Completed University of VACCINE 00:00:00 [facility] TDAP (ADACEL) 2018-12-12 Completed University of VACCINE 00:00:00 [facility] TDAP (ADACEL) 2018-12-12 Completed University of VACCINE 00:00:00 [facility] TDAP (ADACEL) 2018-12-12 Completed University of VACCINE 00:00:00 [facility] TDAP (ADACEL) 2018-12-12 Completed University of VACCINE 00:00:00 [facility] TDAP (ADACEL) 2018-12-12 Completed University of VACCINE 00:00:00 [facility] TDAP (ADACEL) 2018-12-12 Completed University of VACCINE 00:00:00 [facility] Branch TDAP (ADACEL) 2018-12-12 Completed University of VACCINE 00:00:00 [facility] TDAP (ADACEL) 2018-12-12 Completed University of VACCINE 00:00:00 [facility] Branch TDAP (ADACEL) 2018-12-12 Completed [facility]INE 00:00:00 [facility] TDAP (ADACEL) 2018-12-12 Completed [facility] VACCINE 00:00:00 [facility] TDAP (ADACEL) 2018-12-12 Completed [facility] VACCINE 00:00:00 [facility] TDAP (ADACEL) 2018-12-12 Completed [facility] VACCINE 00:00:00 [facility] TDAP (ADACEL) 2018-12-12 Completed [facility] VACCINE 00:00:00 [facility] TDAP (ADACEL) 2018-12-12 Completed [facility] VACCINE 00:00:00 [facility] TDAP (ADACEL) 2018-12-12 Completed [facility] VACCINE 00:00:00 [facility] TDAP (ADACEL) 2018-12-12 Completed [facility] VACCINE 00:00:00 [facility] TDAP (ADACEL) 2018-12-12 Completed [facility] VACCINE 00:00:00 [facility] TDAP (ADACEL) 2018-12-12 Completed [facility] VACCINE 00:00:00 [facility] TDAP (ADACEL) 2018-12-12 Completed [facility] VACCINE 00:00:00 [facility] TDAP (ADACEL) 2018-12-12 Completed [facility] VACCINE 00:00:00 [facility] TDAP (ADACEL) 2018-12-12 Completed [facility] VACCINE 00:00:00 [facility] TDAP (ADACEL) 2018-12-12 Completed [facility] VACCINE 00:00:00 [facility] TDAP (ADACEL) 2018-12-12 Completed [facility] VACCINE 00:00:00 [facility] TDAP (ADACEL) 2018-12-12 Completed [facility] VACCINE 00:00:00 [facility] TDAP (ADACEL) 2018-12-12 Completed [facility] VACCINE 00:00:00 [facility] TDAP (ADACEL) 2018-12-12 Completed [facility] VACCINE 00:00:00 [facility] TDAP (ADACEL) 2018-12-12 Completed [facility] VACCINE 00:00:00 [facility] TDAP (ADACEL) 2018-12-12 Completed [facility] VACCINE 00:00:00 [facility] TDAP (ADACEL) 2018-12-12 Completed [facility] VACCINE 00:00:00 [facility] TDAP (ADACEL) 2018-12-12 Completed [facility] VACCINE 00:00:00 [facility] TDAP (ADACEL) 2018-12-12 Completed [facility] VACCINE 00:00:00 [facility] TDAP (ADACEL) 2018-12-12 Completed [facility] VACCINE 00:00:00 [facility] TDAP (ADACEL) 2018-12-12 Completed [facility] VACCINE 00:00:00 [facility] TDAP (ADACEL) 2018-12-12 Completed [facility] VACCINE 00:00:00 [facility] TDAP (ADACEL) 2018-12-12 Completed [facility] VACCINE 00:00:00 [facility] TDAP (ADACEL) 2018-12-12 Completed [facility] VACCINE 00:00:00 [facility] TDAP (ADACEL) 2018-12-12 Completed [facility] VACCINE 00:00:00 [facility] TDAP (ADACEL) 2018-12-12 Completed [facility] VACCINE 00:00:00 [facility] TDAP (ADACEL) 2018-12-12 Completed [facility] VACCINE 00:00:00 [facility] TDAP (ADACEL) 2015-08-15 Completed [facility] VACCINE 00:00:00 [facility] TDAP (ADACEL) 2015-08-15 Completed [facility] VACCINE 00:00:00 [facility] TDAP (ADACEL) 2015-08-15 Completed [facility] VACCINE 00:00:00 [facility] TDAP (ADACEL) 2015-08-15 Completed [facility] VACCINE 00:00:00 [facility] TDAP (ADACEL) 2015-08-15 Completed [facility] VACCINE 00:00:00 [facility] TDAP (ADACEL) 2015-08-15 Completed [facility] VACCINE 00:00:00 [facility] TDAP (ADACEL) 2015-08-15 Completed [facility] VACCINE 00:00:00 [facility] TDAP (ADACEL) 2015-08-15 Completed [facility] VACCINE 00:00:00 [facility] TDAP (ADACEL) 2015-08-15 Completed [facility] VACCINE 00:00:00 [facility] TDAP (ADACEL) 2015-08-15 Completed [facility] VACCINE 00:00:00 [facility] TDAP (ADACEL) 2015-08-15 Completed [facility] VACCINE 00:00:00 [facility] TDAP (ADACEL) 2015-08-15 Completed [facility] VACCINE 00:00:00 [facility] TDAP (ADACEL) 2015-08-15 Completed [facility] VACCINE 00:00:00 [facility] TDAP (ADACEL) 2015-08-15 Completed [facility] VACCINE 00:00:00 [facility] TDAP (ADACEL) 2015-08-15 Completed [facility] VACCINE 00:00:00 [facility] TDAP (ADACEL) 2015-08-15 Completed [facility] VACCINE 00:00:00 [facility] TDAP (ADACEL) 2015-08-15 Completed [facility] VACCINE 00:00:00 [facility] TDAP (ADACEL) 2015-08-15 Completed [facility] VACCINE 00:00:00 [facility] TDAP (ADACEL) 2015-08-15 Completed [facility] VACCINE 00:00:00 [facility] TDAP (ADACEL) 2015-08-15 Completed [facility] VACCINE 00:00:00 [facility] TDAP (ADACEL) 2015-08-15 Completed [facility] VACCINE 00:00:00 [facility] TDAP (ADACEL) 2015-08-15 Completed [facility] VACCINE 00:00:00 [facility] TDAP (ADACEL) 2015-08-15 Completed [facility] VACCINE 00:00:00 [facility] TDAP (ADACEL) 2015-08-15 Completed [facility] VACCINE 00:00:00 [facility] TDAP (ADACEL) 2015-08-15 Completed [facility] VACCINE 00:00:00 [facility] TDAP (ADACEL) 2015-08-15 Completed [facility] VACCINE 00:00:00 [facility] TDAP (ADACEL) 2015-08-15 Completed [facility] VACCINE 00:00:00 [facility] TDAP (ADACEL) 2015-08-15 Completed [facility] VACCINE 00:00:00 [facility] TDAP (ADACEL) 2015-08-15 Completed [facility] VACCINE 00:00:00 [facility] TDAP (ADACEL) 2015-08-15 Completed [facility] VACCINE 00:00:00 [facility] TDAP (ADACEL) 2015-08-15 Completed [facility] VACCINE 00:00:00 [facility] TDAP (ADACEL) 2015-08-15 Completed [facility] VACCINE 00:00:00 [facility] TDAP (ADACEL) 2015-08-15 Completed [facility] VACCINE 00:00:00 [facility] TDAP (ADACEL) 2015-08-15 Completed [facility] VACCINE 00:00:00 [facility] TDAP (ADACEL) 2015-08-15 Completed [facility] VACCINE 00:00:00 [facility] TDAP (ADACEL) 2015-08-15 Completed [facility] VACCINE 00:00:00 [facility] TDAP (ADACEL) 2015-08-15 Completed [facility] VACCINE 00:00:00 [facility] TDAP (ADACEL) 2015-08-15 Completed [facility] VACCINE 00:00:00 [facility] TDAP (ADACEL) 2015-08-15 Completed [facility] VACCINE 00:00:00 [facility] TDAP (ADACEL) 2015-08-15 Completed [facility] VACCINE 00:00:00 [facility] TDAP (ADACEL) 2015-08-15 Completed [facility] VACCINE 00:00:00 [facility] TDAP (ADACEL) 2015-08-15 Completed [facility] VACCINE 00:00:00 [facility] TDAP (ADACEL) 2015-08-15 Completed [facility] VACCINE 00:00:00 [facility] TDAP (ADACEL) 2015-08-15 Completed [facility] VACCINE 00:00:00 [facility] TDAP (ADACEL) 2015-08-15 Completed [facility] VACCINE 00:00:00 [facility] TDAP (ADACEL) 2015-08-15 Completed [facility] VACCINE 00:00:00 [facility] TDAP (ADACEL) 2015-08-15 Completed [facility] VACCINE 00:00:00 [facility] TDAP (ADACEL) 2015-08-15 Completed [facility] VACCINE 00:00:00 [facility] TDAP (ADACEL) 2015-08-15 Completed [facility] VACCINE 00:00:00 [facility] TDAP (ADACEL) 2015-08-15 Completed [facility] VACCINE 00:00:00 [facility] TDAP (ADACEL) 2015-08-15 Completed [facility] VACCINE 00:00:00 [facility] TDAP (ADACEL) 2015-08-15 Completed [facility] VACCINE 00:00:00 [facility] TDAP (ADACEL) 2015-08-15 Completed [facility] VACCINE 00:00:00 [facility] TDAP (ADACEL) 2015-08-15 Completed [facility] VACCINE 00:00:00 [facility] TDAP (ADACEL) 2015-08-15 Completed [facility] VACCINE 00:00:00 [facility] TDAP (ADACEL) 2015-08-15 Completed [facility] VACCINE 00:00:00 [facility] TDAP (ADACEL) 2015-08-15 Completed [facility] VACCINE 00:00:00 [facility] TDAP (ADACEL) 2015-08-15 Completed [facility] VACCINE 00:00:00 [facility] TDAP (ADACEL) 2015-08-15 Completed [facility] VACCINE 00:00:00 [facility] TDAP (ADACEL) 2015-08-15 Completed [facility] VACCINE 00:00:00 [facility] HPV 2010-12-03 Completed [facility] 00:00:00 [facility] HPV 2010-12-03 Completed [facility] 00:00:00 [facility] HPV 2010-12-03 Completed [facility] 00:00:00 [facility] HPV 2010-12-03 Completed [facility] 00:00:00 [facility] HPV 2010-12-03 Completed [facility] 00:00:00 [facility] HPV 2010-12-03 Completed [facility] 00:00:00 [facility] HPV 2010-12-03 Completed [facility] 00:00:00 [facility] HPV 2010-12-03 Completed [facility] 00:00:00 [facility] HPV 2010-12-03 Completed [facility] 00:00:00 [facility] HPV 2010-12-03 Completed [facility] 00:00:00 [facility] HPV 2010-12-03 Completed [facility] 00:00:00 [facility] HPV 2010-12-03 Completed [facility] 00:00:00 [facility] HPV 2010-12-03 Completed [facility] 00:00:00 [facility] HPV 2010-12-03 Completed [facility] 00:00:00 [facility] HPV 2010-12-03 Completed [facility] 00:00:00 [facility] HPV 2010-12-03 Completed [facility] 00:00:00 [facility] HPV 2010-12-03 Completed [facility] 00:00:00 [facility] HPV 2010-12-03 Completed [facility] 00:00:00 [facility] HPV 2010-12-03 Completed [facility] 00:00:00 [facility] HPV 2010-12-03 Completed [facility] 00:00:00 [facility] HPV 2010-12-03 Completed [facility] 00:00:00 [facility] HPV 2010-12-03 Completed [facility] 00:00:00 [facility] HPV 2010-12-03 Completed [facility] 00:00:00 [facility] HPV 2010-12-03 Completed [facility] 00:00:00 [facility] HPV 2010-12-03 Completed [facility] 00:00:00 [facility] HPV 2010-12-03 Completed [facility] 00:00:00 [facility] HPV 2010-12-03 Completed [facility] 00:00:00 [facility] HPV 2010-12-03 Completed [facility] 00:00:00 [facility] HPV 2010-12-03 Completed [facility] 00:00:00 [facility] HPV 2010-12-03 Completed [facility] 00:00:00 [facility] HPV 2010-12-03 Completed [facility] 00:00:00 [facility] HPV 2010-12-03 Completed [facility] 00:00:00 [facility] HPV 2010-12-03 Completed [facility] 00:00:00 [facility] HPV 2010-12-03 Completed [facility] 00:00:00 [facility] HPV 2010-12-03 Completed [facility] 00:00:00 [facility] HPV 2010-12-03 Completed [facility] 00:00:00 [facility] HPV 2010-12-03 Completed [facility] 00:00:00 [facility] HPV 2010-12-03 Completed [facility] 00:00:00 [facility] HPV 2010-12-03 Completed [facility] 00:00:00 [facility] HPV 2010-12-03 Completed [facility] 00:00:00 [facility] HPV 2010-12-03 Completed [facility] 00:00:00 [facility] HPV 2010-12-03 Completed [facility] 00:00:00 [facility] HPV 2010-12-03 Completed [facility] 00:00:00 [facility] HPV 2010-12-03 Completed [facility] 00:00:00 [facility] HPV 2010-12-03 Completed [facility] 00:00:00 [facility] HPV 2010-12-03 Completed [facility] 00:00:00 [facility] HPV 2010-12-03 Completed [facility] 00:00:00 [facility] HPV 2010-12-03 Completed [facility] 00:00:00 [facility] HPV 2010-12-03 Completed [facility] 00:00:00 [facility] HPV 2010-12-03 Completed [facility] 00:00:00 [facility] HPV 2010-12-03 Completed [facility] 00:00:00 [facility] HPV 2010-12-03 Completed [facility] 00:00:00 [facility] HPV 2010-12-03 Completed [facility] 00:00:00 [facility] HPV 2010-12-03 Completed [facility] 00:00:00 [facility] HPV 2010-12-03 Completed [facility] 00:00:00 [facility] HPV 2010-12-03 Completed [facility] 00:00:00 [facility] HPV 2010-12-03 Completed [facility] 00:00:00 [facility] HPV 2010-12-03 Completed [facility] 00:00:00 [facility] HPV 2010-12-03 Completed [facility] 00:00:00 [facility] HPV 2010-12-03 Completed [facility] 00:00:00 [facility] HPV 2010-08-03 Completed [facility] 00:00:00 [facility] HPV 2010-08-03 Completed [facility] 00:00:00 [facility] HPV 2010-08-03 Completed [facility] 00:00:00 [facility] HPV 2010-08-03 Completed [facility] 00:00:00 [facility] HPV 2010-08-03 Completed [facility] 00:00:00 [facility] HPV 2010-08-03 Completed [facility] 00:00:00 [facility] HPV 2010-08-03 Completed [facility] 00:00:00 [facility] HPV 2010-08-03 Completed [facility] 00:00:00 [facility] HPV 2010-08-03 Completed [facility] 00:00:00 [facility] HPV 2010-08-03 Completed [facility] 00:00:00 [facility] HPV 2010-08-03 Completed [facility] 00:00:00 [facility] HPV 2010-08-03 Completed [facility] 00:00:00 [facility] HPV 2010-08-03 Completed [facility] 00:00:00 [facility] HPV 2010-08-03 Completed [facility] 00:00:00 [facility] HPV 2010-08-03 Completed [facility] 00:00:00 [facility] HPV 2010-08-03 Completed [facility] 00:00:00 [facility] HPV 2010-08-03 Completed [facility] 00:00:00 [facility] HPV 2010-08-03 Completed [facility] 00:00:00 [facility] HPV 2010-08-03 Completed [facility] 00:00:00 [facility] HPV 2010-08-03 Completed [facility] 00:00:00 [facility] HPV 2010-08-03 Completed [facility] 00:00:00 [facility] HPV 2010-08-03 Completed [facility] 00:00:00 [facility] HPV 2010-08-03 Completed [facility] 00:00:00 [facility] HPV 2010-08-03 Completed [facility] 00:00:00 [facility] HPV 2010-08-03 Completed [facility] 00:00:00 [facility] HPV 2010-08-03 Completed [facility] 00:00:00 [facility] HPV 2010-08-03 Completed [facility] 00:00:00 [facility] HPV 2010-08-03 Completed [facility] 00:00:00 [facility] HPV 2010-08-03 Completed [facility] 00:00:00 [facility] HPV 2010-08-03 Completed [facility] 00:00:00 [facility] HPV 2010-08-03 Completed [facility] 00:00:00 [facility] HPV 2010-08-03 Completed [facility] 00:00:00 [facility] HPV 2010-08-03 Completed [facility] 00:00:00 [facility] HPV 2010-08-03 Completed [facility] 00:00:00 [facility] HPV 2010-08-03 Completed [facility] 00:00:00 [facility] HPV 2010-08-03 Completed [facility] 00:00:00 [facility] HPV 2010-08-03 Completed [facility] 00:00:00 [facility] HPV 2010-08-03 Completed [facility] 00:00:00 [facility] HPV 2010-08-03 Completed [facility] 00:00:00 [facility] HPV 2010-08-03 Completed [facility] 00:00:00 [facility] HPV 2010-08-03 Completed [facility] 00:00:00 [facility] HPV 2010-08-03 Completed [facility] 00:00:00 [facility] HPV 2010-08-03 Completed [facility] 00:00:00 [facility] HPV 2010-08-03 Completed [facility] 00:00:00 [facility] HPV 2010-08-03 Completed [facility] 00:00:00 [facility] HPV 2010-08-03 Completed [facility] 00:00:00 [facility] HPV 2010-08-03 Completed [facility] 00:00:00 [facility] HPV 2010-08-03 Completed [facility] 00:00:00 [facility] HPV 2010-08-03 Completed [facility] 00:00:00 [facility] HPV 2010-08-03 Completed [facility] 00:00:00 [facility] HPV 2010-08-03 Completed [facility] 00:00:00 [facility] HPV 2010-08-03 Completed [facility] 00:00:00 [facility] HPV 2010-08-03 Completed [facility] 00:00:00 [facility] HPV 2010-08-03 Completed [facility] 00:00:00 [facility] HPV 2010-08-03 Completed [facility] 00:00:00 [facility] HPV 2010-08-03 Completed [facility] 00:00:00 [facility] HPV 2010-08-03 Completed [facility] 00:00:00 [facility] HPV 2010-08-03 Completed [facility] 00:00:00 [facility] HPV 2010-08-03 Completed [facility] 00:00:00 [facility] HPV 2010-08-03 Completed [facility] 00:00:00 [facility] HPV 2010-06-05 Completed [facility] 00:00:00 [facility] HPV 2010-06-05 Completed [facility] 00:00:00 [facility] HPV 2010-06-05 Completed [facility] 00:00:00 [facility] HPV 2010-06-05 Completed [facility] 00:00:00 [facility] HPV 2010-06-05 Completed [facility] 00:00:00 [facility] HPV 2010-06-05 Completed [facility] 00:00:00 [facility] HPV 2010-06-05 Completed [facility] 00:00:00 [facility] HPV 2010-06-05 Completed [facility] 00:00:00 [facility] HPV 2010-06-05 Completed [facility] 00:00:00 [facility] HPV 2010-06-05 Completed [facility] 00:00:00 [facility] HPV 2010-06-05 Completed [facility] 00:00:00 [facility] HPV 2010-06-05 Completed [facility] 00:00:00 [facility] HPV 2010-06-05 Completed [facility] 00:00:00 [facility] HPV 2010-06-05 Completed [facility] 00:00:00 [facility] HPV 2010-06-05 Completed [facility] 00:00:00 [facility] HPV 2010-06-05 Completed [facility] 00:00:00 [facility] HPV 2010-06-05 Completed [facility] 00:00:00 [facility] HPV 2010-06-05 Completed [facility] 00:00:00 [facility] HPV 2010-06-05 Completed [facility] 00:00:00 [facility] HPV 2010-06-05 Completed [facility] 00:00:00 [facility] HPV 2010-06-05 Completed [facility] 00:00:00 [facility] HPV 2010-06-05 Completed [facility] 00:00:00 [facility] HPV 2010-06-05 Completed [facility] 00:00:00 [facility] HPV 2010-06-05 Completed [facility] 00:00:00 [facility] HPV 2010-06-05 Completed [facility] 00:00:00 [facility] HPV 2010-06-05 Completed [facility] 00:00:00 [facility] HPV 2010-06-05 Completed [facility] 00:00:00 [facility] HPV 2010-06-05 Completed [facility] 00:00:00 [facility] HPV 2010-06-05 Completed [facility] 00:00:00 [facility] HPV 2010-06-05 Completed [facility] 00:00:00 [facility] HPV 2010-06-05 Completed [facility] 00:00:00 [facility] HPV 2010-06-05 Completed [facility] 00:00:00 [facility] HPV 2010-06-05 Completed [facility] 00:00:00 [facility] HPV 2010-06-05 Completed [facility] 00:00:00 [facility] HPV 2010-06-05 Completed [facility] 00:00:00 [facility] HPV 2010-06-05 Completed [facility] 00:00:00 [facility] HPV 2010-06-05 Completed [facility] 00:00:00 [facility] HPV 2010-06-05 Completed [facility] 00:00:00 [facility] HPV 2010-06-05 Completed [facility] 00:00:00 [facility] HPV 2010-06-05 Completed [facility] 00:00:00 [facility] HPV 2010-06-05 Completed [facility] 00:00:00 [facility] HPV 2010-06-05 Completed [facility] 00:00:00 [facility] HPV 2010-06-05 Completed [facility] 00:00:00 [facility] HPV 2010-06-05 Completed [facility] 00:00:00 [facility] HPV 2010-06-05 Completed [facility] 00:00:00 [facility] HPV 2010-06-05 Completed [facility] 00:00:00 [facility] HPV 2010-06-05 Completed [facility] 00:00:00 [facility] HPV 2010-06-05 Completed [facility] 00:00:00 [facility] HPV 2010-06-05 Completed [facility] 00:00:00 [facility] HPV 2010-06-05 Completed [facility] 00:00:00 [facility] HPV 2010-06-05 Completed [facility] 00:00:00 [facility] HPV 2010-06-05 Completed [facility] 00:00:00 [facility] HPV 2010-06-05 Completed [facility] 00:00:00 [facility] HPV 2010-06-05 Completed [facility] 00:00:00 [facility] HPV 2010-06-05 Completed [facility] 00:00:00 [facility] HPV 2010-06-05 Completed [facility] 00:00:00 [facility] HPV 2010-06-05 Completed [facility] 00:00:00 [facility] HPV 2010-06-05 Completed [facility] 00:00:00 [facility] HPV 2010-06-05 Completed [facility] 00:00:00 [facility] HPV 2010-06-05 Completed [facility] 00:00:00 [facility] Td 2006-04-16 Completed [facility] 00:00:00 [facility] Td 2006-04-16 Completed [facility] 00:00:00 [facility] Td 2006-04-16 Completed [facility] 00:00:00 [facility] Td 2006-04-16 Completed [facility] 00:00:00 [facility] Td 2006-04-16 Completed [facility] 00:00:00 [facility] Td 2006-04-16 Completed [facility] 00:00:00 [facility] Td 2006-04-16 Completed [facility] 00:00:00 [facility] Td 2006-04-16 Completed [facility] 00:00:00 [facility] Td 2006-04-16 Completed [facility] 00:00:00 [facility] Td 2006-04-16 Completed [facility] 00:00:00 [facility] Td 2006-04-16 Completed [facility] 00:00:00 [facility] Td 2006-04-16 Completed [facility] 00:00:00 [facility] Td 2006-04-16 Completed [facility] 00:00:00 [facility] Td 2006-04-16 Completed [facility] 00:00:00 [facility] Td 2006-04-16 Completed [facility] 00:00:00 [facility] Td 2006-04-16 Completed [facility] 00:00:00 [facility] Td 2006-04-16 Completed [facility] 00:00:00 [facility] Td 2006-04-16 Completed [facility] 00:00:00 [facility] Td 2006-04-16 Completed [facility] 00:00:00 [facility] Td 2006-04-16 Completed [facility] 00:00:00 [facility] Td 2006-04-16 Completed [facility] 00:00:00 [facility] Td 2006-04-16 Completed [facility] 00:00:00 [facility] Td 2006-04-16 Completed [facility] 00:00:00 [facility] Td 2006-04-16 Completed [facility] 00:00:00 [facility] Td 2006-04-16 Completed [facility] 00:00:00 [facility] Td 2006-04-16 Completed [facility] 00:00:00 [facility] Td 2006-04-16 Completed [facility] 00:00:00 [facility] Td 2006-04-16 Completed [facility] 00:00:00 [facility] Td 2006-04-16 Completed [facility] 00:00:00 [facility] Td 2006-04-16 Completed [facility] 00:00:00 [facility] Td 2006-04-16 Completed [facility] 00:00:00 [facility] Td 2006-04-16 Completed [facility] 00:00:00 [facility] Td 2006-04-16 Completed [facility] 00:00:00 [facility] Td 2006-04-16 Completed [facility] 00:00:00 [facility] Td 2006-04-16 Completed [facility] 00:00:00 [facility] Td 2006-04-16 Completed [facility] 00:00:00 [facility] Td 2006-04-16 Completed [facility] 00:00:00 [facility] Td 2006-04-16 Completed [facility] 00:00:00 [facility] Td 2006-04-16 Completed University of 00:00:00 [facility] Td 2006-04-16 Completed University [facility] 00:00:00 [facility] Td 2006-04-16 Completed University of 00:00:00 [facility] Td 2006-04-16 Completed [facility] 00:00:00 [facility] Td 2006-04-16 Completed University of 00:00:00 [facility] Td 2006-04-16 Completed University of 00:00:00 [facility] Td 2006-04-16 Completed University of 00:00:00 [facility] Td 2006-04-16 Completed [facility] of 00:00:00 [facility] Td 2006-04-16 Completed [facility] 00:00:00 [facility] Td 2006-04-16 Completed [facility] 00:00:00 [facility] Td 2006-04-16 Completed [facility] 00[facility]00:00 [facility] Td 2006-04-16 Completed [facility] 00:00:00 [facility] Td 2006-04-16 Completed [facility] 00[facility]00:00 [facility] Td 2006-04-16 Completed [facility] 00:00:00 [facility] Td 2006-04-16 Completed [facility] 00:00:00 [facility] Td 2006-04-16 Completed [facility] 00:00:00 [facility] Td 2006-04-16 Completed [facility] 00:00:00 [facility] Td 2006-04-16 Completed [facility] 00:00:00 [facility] Td 2006-04-16 Completed [facility] 00:00:00 [facility] Td 2006-04-16 Completed [facility] 00:00:00 [facility] Td 2006-04-16 Completed [facility] 00:00:00 [facility] Td 2006-04-16 Completed [facility] 00:00:00 [facility] Vital Signs Vital Name Observation Time Observation Value Comments Source Systolic blood 2020-06-25 19:53:00 124 mm[Hg] Univer sity of pressure [facility] Diastolic blood 2020-06-25 19:53:00 62 mm[Hg] Unive rsity of pressure [facility] Heart rate 2020-06-25 19:53:00 99 /min Universi ty of [facility] Body temperature 2020-06-25 19:53:00 37.11 Sarah Univ ersity of [facility] Respiratory rate 2020-06-25 19:53:00 19 /min Univ ersity of [facility] Body height 2020-06-25 19:53:00 167.6 cm [facility]i ty [facility] Body weight 2020-06-25 19:53:00 73.256 kg [facility]i [facility] BMI 2020-06-25 19:53:00 26.07 kg/m2 [facility] Systolic blood 2020-05-11 21:33:00 126 mm[Hg] Univer sity of pressure [facility] Diastolic blood 2020-05-11 21:33:00 80 mm[Hg] Unive rsity of pressure [facility] Heart rate 2020-05-11 21:33:00 89 /min Universi ty of [facility] Body temperature 2020-05-11 21:33:00 37.11 Sarah Univ ersity of [facility] Respiratory rate 2020-05-11 21:33:00 18 /min Univ ersity of [facility] Body height 2020-05-11 21:33:00 167.6 cm Universi ty [facility] Body weight 2020-05-11 21:33:00 70.806 kg [facility]i [facility] BMI 2020-05-11 21:33:00 25.20 kg/m2 [facility] Systolic blood 2020-05-11 21:33:00 126 mm[Hg] Univer sity of pressure [facility] Diastolic blood 2020-05-11 21:33:00 80 mm[Hg] Unive rsity of pressure [facility] Heart rate 2020-05-11 21:33:00 89 /min Universi ty of [facility] Body temperature 2020-05-11 21:33:00 37.11 Sarah Univ ersity of [facility] Respiratory rate 2020-05-11 21:33:00 18 /min Univ ersity of [facility] Body height 2020-05-11 21:33:00 167.6 cm Universi ty [facility] Body weight 2020-05-11 21:33:00 70.806 kg [facility]i [facility] BMI 2020-05-11 21:33:00 25.20 kg/m2 [facility] Systolic blood 2020-03-19 21:36:00 116 mm[Hg] Univer sity of pressure [facility] Diastolic blood 2020-03-19 21:36:00 72 mm[Hg] Unive rsity of pressure [facility] Heart rate 2020-03-19 21:36:00 78 /min Universi ty [facility] Body temperature 2020-03-19 21:36:00 36.89 Sarah Univ ersity of [facility] Respiratory rate 2020-03-19 21:36:00 18 /min Univ ersity of [facility] Body height 2020-03-19 21:36:00 167.6 cm [facility]i [facility] Body weight 2020-03-19 21:36:00 71.94 kg [facility]i [facility] BMI 2020-03-19 21:36:00 25.60 kg/m2 [facility] Systolic blood 2020-02-27 21:03:00 120 mm[Hg] Univer sity of pressure [facility] Diastolic blood 2020-02-27 21:03:00 70 mm[Hg] Unive rsity of pressure [facility] Heart rate 2020-02-27 21:03:00 85 /min Universi ty [facility] Body temperature 2020-02-27 21:03:00 36.83 Sarah Univ ersity [facility] Respiratory rate 2020-02-27 21:03:00 19 /min Univ ersity of [facility] Body height 2020-02-27 21:03:00 167.6 cm [facility]i [facility] Body weight 2020-02-27 21:03:00 69.911 kg [facility]i [facility] BMI 2020-02-27 21:03:00 24.88 kg/m2 [facility] Systolic blood 2020-01-30 19:29:00 112 mm[Hg] Univer sity of pressure [facility] Diastolic blood 2020-01-30 19:29:00 58 mm[Hg] Unive rsity of pressure [facility] Heart rate 2020-01-30 19:29:00 91 /min [facility]i ty [facility] Body temperature 2020-01-30 19:29:00 36.72 Sarah Univ [facility] Respiratory rate 2020-01-30 19:29:00 18 /min Univ ersity of [facility] Body height 2020-01-30 19:29:00 167.6 cm [facility] Body weight 2020-01-30 19:29:00 68.765 kg [facility] BMI 2020-01-30 19:29:00 24.47 kg/m2 [facility] Systolic blood 2020-01-20 19:20:00 131 mm[Hg] Univer sity of pressure [facility] Diastolic blood 2020-01-20 19:20:00 69 mm[Hg] Unive rsity of pressure [facility] Heart rate 2020-01-20 19:20:00 83 /min [facility]i [facility] Body temperature 2020-01-20 19:20:00 36.61 Sarah Univ [facility] Respiratory rate 2020-01-20 19:20:00 16 /min Univ ersity of [facility] Body height 2020-01-20 19:20:00 167.6 cm [facility] Body weight 2020-01-20 19:20:00 72.167 kg [facility] BMI 2020-01-20 19:20:00 25.68 kg/m2 [facility] Systolic blood 2019-10-21 15:48:00 129 mm[Hg] Univer sity of pressure [facility] Diastolic blood 2019-10-21 15:48:00 74 mm[Hg] Unive rsity of pressure [facility] Heart rate 2019-10-21 15:48:00 91 /min Universi ty of [facility] Body temperature 2019-10-21 15:48:00 36.83 Sarah Univ ersity of [facility] Respiratory rate 2019-10-21 15:48:00 16 /min Univ ersity of [facility] Body height 2019-10-21 15:48:00 167.6 cm Universi ty of [facility] Body weight 2019-10-21 15:48:00 75.382 kg Universi ty of [facility] BMI 2019-10-21 15:48:00 26.82 kg/m2 Universi ty of [facility] Systolic blood 2019-07-09 22:53:00 125 mm[Hg] Univer sity of pressure [facility] Diastolic blood 2019-07-09 22:53:00 90 mm[Hg] Unive rsity of pressure [facility] Heart rate 2019-07-09 22:53:00 76 /min Universi ty of [facility] Respiratory rate 2019-07-09 22:53:00 16 /min [facility] Oxygen saturation in 2019-07-09 22:53:00 99 /min University of Arterial blood by [facility] Pulse oximetry Branch Body temperature 2019-07-09 20:17:00 37.72 Sarah Univ ersity of [facility] Body height 2019-07-09 20:17:00 167.6 cm Universi ty of [facility] Body weight 2019-07-09 20:17:00 74.844 kg Universi ty of [facility] BMI 2019-07-09 20:17:00 26.63 kg/m2 Universi ty of [facility] Systolic blood 2019-01-02 16:35:00 121 mm[Hg] Univer sity of pressure [facility] Diastolic blood 2019-01-02 16:35:00 58 mm[Hg] Unive rsity of pressure [facility] Heart rate 2019-01-02 16:35:00 79 /min Universi ty of [facility] Body temperature 2019-01-02 16:35:00 36.94 Sarah Univ ersity of [facility] Respiratory rate 2019-01-02 16:35:00 18 /min Univ ersity of [facility] Body height 2019-01-02 16:35:00 167.6 cm Universi ty of [facility] Body weight 2019-01-02 16:35:00 75.116 kg Universi ty [facility] BMI 2019-01-02 16:35:00 26.73 kg/m2 [facility] Heart rate 2018-12-31 17:53:00 80 /min [facility] ty [facility] Oxygen saturation in 2018-12-31 17:53:00 100 /min University of Arterial blood by [facility] Pulse oximetry Branch Systolic blood 2018-12-31 16:30:00 100 mm[Hg] Univer sity of pressure [facility] Diastolic blood 2018-12-31 16:30:00 61 mm[Hg] Unive rsity of pressure [facility] Body temperature 2018-12-31 16:30:00 36.78 Sarah Univ [facility] Respiratory rate 2018-12-31 16:30:00 18 /min [facility] [place] Body height 2018-12-31 14:10:00 167.6 cm [facility] Body weight 2018-12-31 14:10:00 75.116 kg [facility] BMI 2018-12-31 14:10:00 26.73 kg/m2 [facility] Systolic blood 2018-12-26 15:59:00 116 mm[Hg] Univer sity of pressure [facility] Diastolic blood 2018-12-26 15:59:00 69 mm[Hg] Unive rsity of pressure [facility] Heart rate 2018-12-26 15:59:00 97 /min [facility]i ty [facility] Body temperature 2018-12-26 15:59:00 36.44 Sarah Univ [facility] Respiratory rate 2018-12-26 15:59:00 18 /min Univ ersity of [facility] Body height 2018-12-26 15:59:00 167.6 cm [facility] Body weight 2018-12-26 15:59:00 73.392 kg [facility] BMI 2018-12-26 15:59:00 26.12 kg/m2 [facility] Systolic blood 2018-12-24 00:21:00 129 mm[Hg] Univer sity of pressure [facility] Diastolic blood 2018-12-24 00:21:00 66 mm[Hg] Unive rsity of pressure [facility] Heart rate 2018-12-24 00:21:00 87 /min Universi ty [facility] Body temperature 2018-12-24 00:21:00 36.83 Sarah Univ ersity [facility] Respiratory rate 2018-12-24 00:21:00 18 /min Univ ersity of [facility] Body height 2018-12-24 00:21:00 167.6 cm [facility] Body weight 2018-12-24 00:21:00 70.761 kg [facility] BMI 2018-12-24 00:21:00 25.18 kg/m2 [facility] Oxygen saturation in 2018-12-24 00:21:00 98 /min University of Arterial blood by [place] [employer] [facility] Pulse oximetry Branch Systolic blood 2018-12-12 17:04:00 117 mm[Hg] Univer sity of pressure [facility] Diastolic blood 2018-12-12 17:04:00 68 mm[Hg] Unive rsity of pressure [facility] Heart rate 2018-12-12 17:04:00 92 /min Universi ty [facility] Body temperature 2018-12-12 17:04:00 36.44 Sarah Univ ersity [facility] Respiratory rate 2018-12-12 17:04:00 18 /min Univ ersity of [facility] Body height 2018-12-12 17:04:00 167.6 cm Universi ty [facility] Body weight 2018-12-12 17:04:00 72.122 kg Universi ty [facility] BMI 2018-12-12 17:04:00 25.66 kg/m2 [facility] Heart rate 2018-12-11 23:00:00 85 /min [facility] ty [facility] Oxygen saturation in 2018-12-11 22:45:00 100 /min University of Arterial blood by [place] [facility] [facility] Pulse oximetry [facility] Systolic blood 2018-12-11 20:32:00 128 mm[Hg] Univer sity of pressure [facility] Diastolic blood 2018-12-11 20:32:00 74 mm[Hg] Unive rsity of pressure [facility] Body temperature 2018-12-11 20:32:00 36.78 Sarah Univ ersity [facility] Respiratory rate 2018-12-11 20:32:00 16 /min Univ ersity of [facility] Body height 2018-12-11 20:32:00 167.6 cm [facility] ty [facility] Body weight 2018-12-11 20:32:00 71.85 kg [facility] BMI 2018-12-11 20:32:00 25.57 kg/m2 [facility] Systolic blood 2018-11-28 21:09:00 129 mm[Hg] Univer sity of pressure [facility] Diastolic blood 2018-11-28 21:09:00 74 mm[Hg] Unive rsity of pressure [facility] Heart rate 2018-11-28 21:09:00 83 /min [facility]i ty [facility] Body temperature 2018-11-28 21:09:00 36.44 Sarah Univ [facility] Respiratory rate 2018-11-28 21:09:00 18 /min Univ ersity of [facility] Body height 2018-11-28 21:09:00 167.6 cm [facility] Body weight 2018-11-28 21:09:00 71.124 kg [facility] BMI 2018-11-28 21:09:00 25.31 kg/m2 [facility] Systolic blood 2018-11-20 16:21:00 120 mm[Hg] Univer sity of pressure [facility] Diastolic blood 2018-11-20 16:21:00 70 mm[Hg] Unive rsity of pressure [facility] Heart rate 2018-11-20 16:21:00 85 /min Universi ty [facility] Body temperature 2018-11-20 16:21:00 36.78 Sarah Univ ersity [facility] Respiratory rate 2018-11-20 16:21:00 18 /min Univ ersity of [facility] Body height 2018-11-20 16:21:00 167.6 cm [facility] Body weight 2018-11-20 16:21:00 70.761 kg [facility] BMI 2018-11-20 16:21:00 25.18 kg/m2 [facility] Heart rate 2018-11-10 09:00:00 79 /min [facility] Systolic blood 2018-11-10 08:38:00 127 mm[Hg] Univer sity of pressure [facility] Diastolic blood 2018-11-10 08:38:00 70 mm[Hg] [facility] of pressure [facility] Body temperature 2018-11-10 08:38:00 37.06 Sarah [facility] Respiratory rate 2018-11-10 08:38:00 18 /min [facility] Body height 2018-11-10 08:38:00 167.6 cm [facility] Body weight 2018-11-10 08:38:00 69.854 kg [facility] BMI 2018-11-10 08:38:00 24.86 kg/m2 [facility] Oxygen saturation in 2018-11-10 08:38:00 100 /min [facility] Arterial blood by [facility] Pulse oximetry [place] Procedures Procedure Date / Time Performing Clinician Source Performed URINALYSIS 2020-06-25 22:38:00 Pa [facility] URINE CULTURE 2020-06-25 22:38:00 Pa [facility] THYROID STIMULATING 2020-06-25 20:53:00 Shirin Winn [facility] HORMONE [facility] CBC WITH DIFF 2020-06-25 20:53:00 Pa [facility] US PELVIS COMPLETE WITH 2020-03-19 20:48:07 Rocio Arguello [facility] TRANSVAGINAL [facility] NO SHOW OR MISSED 2019-10-21 15:32:02 Doctor Unassigned, [facility] APPOINTMENT POLICY [facility] ACKNOWLEDGEMENT INSURANCE CORRESPONDENCE 2019-07-10 05:01:00 Doctor Unassigned, [facility] [place] [facility] ABDOMEN PELVIS W 2019-07-09 21:54:53 Manisha Crenshaw [facility] CONTRAST [facility] US OVARY TORSION 2019-07-09 21:15:09 Manisha Crenshaw [facility] COMP. METABOLIC PANEL 2019-07-09 20:43:00 Manisha Crenshaw [facility] ([id number]) [facility] CBC WITH DIFFERENTIAL 2019-07-09 20:43:00 Manisha [facility] URINALYSIS 2019-07-09 20:34:00 Manisha Crenshaw [facility] POCT TEST 2019-07-09 20:33:00 Manisha Crenshaw [facility] [place] CONSENT/REFUSAL FOR 2019-07-09 20:09:34 Doctor Janina [facility] DIAGNOSIS AND TREATMENT [facility] POCT URINALYSIS W/O 2019-01-02 00:00:00 Jj Rodriguez [facility] [place] NOTICE OF PRIVACY 2018-12-31 13:52:02 Doctor Janina, [facility] CONSENT/REFUSAL FOR 2018-12-31 13:51:48 Doctor Janina [facility] DIAGNOSIS AND TREATMENT [facility] ASSIGNMENT OF BENEFITS 2018-12-31 13:51:26 [facility] NOTICE OF PRIVACY 2018-12-30 20:01:47 Doctor Janina [facility] CONSENT/REFUSAL FOR 2018-12-30 20:01:37 Doctor Roa [facility] DIAGNOSIS AND TREATMENT [facility] ASSIGNMENT OF BENEFITS 2018-12-30 20:01:26 Doctor Janina, [facility] >14 WEEKS US 2018-12-26 17:01:[address] [facility] POCT URINALYSIS W/O 2018-12-26 16:00:00 Jj Rodriguez [facility] [place] DSU PRE-OP 2018-12-26 05:01:00 Doctor Roa [facility] NON-STRESS TEST 2018-12-24 01:08:49 Jj Rodriguez [facility] L&D VISIT (NON-DELIVERED) 2018-12-23 05:01:00 Doctor Roa [facility] Name [facility] [place] TDAP (ADACEL) IMMUNIZATION 2018-12-12 17:06:48 [facility] - WET 2018-12-11 21:33:00 [facility] W/O 2018-11-28 00:00:00 Jj Rodriguez [facility] SPECIFIC GRAVITY Medical Branch ASSIGNMENT OF BENEFITS 2018-11-20 13:11:24 [facility] POCT URINALYSIS W/O 2018-11-20 00:00:00 April Tinajero [facility] SPECIFIC GRAVITY Medical Branch CONSENT/REFUSAL FOR 2018-11-10 08:13:55 Doctor Unassigned, [facility] DIAGNOSIS AND TREATMENT [facility] ASSIGNMENT OF BENEFITS 2018-11-10 08:13:44 [facility], [facility] [place] [facility]D VIS[facility] (NON-DELIVERED) 2018-11-10 05:01:00 Doctor Payalssfranklin, [facility] Name Medical [place] Encounters Start End Encounter Admission Attending Care Care Encounter Source Date/Time Date/Time Type Type Clinicians Facility Department ID 2020-08-18 2020-08-18 Outpatient [facility] [id number] Univers 13:00:00 13:00:00 ity of [facility] 2020-07-06 2020-07-06 Patient Aubrey [facility] [id number] Univers 00:00:00 00:00:00 Outreach Shyam PRIMARY [id number] i ty of [facility] [id number]AV[place] [id number] Pa dical 388 Branch 2020-06-25 2020-06-25 Office Pool, [facility] Resident UNIVERSIT 1.2.8 40.114 [id number] Univers 13:34:46 14:58:14 Visit Gerson Sharma Y HEALTH [id number] ity [id number] [id number] [facility] 113 Branch 2020-06-25 2020-06-25 Outpatient [facility] [id number] Univers 14:00:00 14:00:00 ity of [facility] 2020-06-25 2020-06-25 Refill Doctor UNIVERSIT [id number] Univers 00:00:00 00:00:00 Unassigned, Y HEALTH [id number] [facility]y [facility] [place] [facility] [id number] [address] 2020-06-11 2020-06-11 Telemedici Pool, [facility] Resident UNIVERSIT 1. 2.840.114 [id number] Univers 08:15:13 14:50:55 ne Visit Hedy Harkins Y HEALTH [id number] ity [id number] [id number] [address] 2020-06-11 2020-06-11 Outpatient [facility] [id number] Univers 14:00:00 14:00:00 ity of [facility] 2020-06-03 2020-06-03 Telephone [facility] UNIVERSIT [id number] 00:00:00 00:00:00 Resident Y HEALTH [id number] CLINICS [id number] [id number] [facility] 2020-06-03 2020-06-03 Telephone Stanley, [facility] UNIVERSIT [id number] Univers 00:00:00 00:00:00 Resident Y HEALTH [id number] ity [id number] [id number] [address] 2020-05-11 2020-05-11 Office Pool, [facility] Resident UNIVERSIT 1.2.8 40.114 [id number] Univers 15:19:36 15:56:39 Visit Gerson George W Y HEALTH [id number] ity [id number] [id number] [address] 2020-05-11 2020-05-11 Office Pool, [facility] UNIVERSIT 1.2.840.114 [id number] 15:19:36 15:56:39 Visit Resident Y HEALTH [id number] CLINICS [id number] [id number] [facility] 2020-05-11 2020-05-11 Outpatient [facility] [id number] Univers 15:30:00 15:30:00 ity [facility] 2020-05-07 2020-05-07 Telephone Fox, UNIVERSIT 1.2.840.114 [id number] Univers 00:00:00 00:00:00 Romero Y HEALTH [id number] i ty [id number] [id number] [address] 2020-03-19 2020-03-19 [facility] [id number] Univers 13:50:15 23:59:00 ATIF ity [facility] 2020-03-19 2020-03-19 [facility] Jasson, UNIVERSIT 1.2.840.114 [id number] Univers 13:50:15 23:59:00 Encounter Atif L Y HEALTH [id number] ity of [id number] [id number] [facility] 806 [place] 2020-03-19 2020-03-19 Office Pool, [facility] Resident UNIVERSIT 1.2.8 40.114 [id number] Univers 15:07:44 16:59:44 Visit Gerson Sharma Y HEALTH [id number] ity [id number] [id number] [address] 2020-03-19 2020-03-19 Outpatient [facility] [id number] Univers 15:30:00 15:30:00 ity [facility] 2020-03-08 2020-03-08 [facility] [id number] Univers 15:00:00 15:00:00 [facility] ity [facility] 2020-03-08 2020-03-08 [facility] [id number] Univers 00:00:00 00:00:00 ATIF ity [facility] 2020-03-03 2020-03-03 Outpatient G_Pappas [facility] [id number] [place] 02:31:00 02:31:00 [facility] 2020-02-27 2020-02-27 Office Pool, [facility] Resident UNIVERSIT 1.2.8 40.114 [id number] Univers 14:25:09 15:53:10 Visit Atif Spaulding L Y HEALTH [id number] ity [id number] [id number] [address] 2020-02-27 2020-02-27 Outpatient R [facility]ON [facility] [id number] Univers 15:30:00 15:30:00 [facility] 2020-02-18 2020-02-18 Telephone [facility] 1.2.840.114 [id number] Univers 00:00:00 00:00:00 Haydee Bhatt [employer] [id number] it y of REGIONAL [id number] Jose as MATERNAL [id number] [facility] & [address] 2020-01-30 2020-01-31 Office [facility] Resident UNIVERSIT 1.2.8 40.114 [id number] Univers 14:04:38 20:01:08 Visit Gerson Sharma [facility] [id number] ity [id number] [id number] [address] 2020-01-30 2020-01-30 Outpatient [facility] [id number] Univers 14:30:00 14:30:00 [facility] 2020-01-21 2020-01-21 Telephone [facility] 1.2.840.114 [id number] Univers 00:00:00 00:00:00 Haydee Bhatt [employer]YARD HELPER [id number] it y of REGIONAL [id number] Jose as MATERNAL [id number] [address] 2020-01-20 2020-01-20 Office [facility] 1.2.400.802 [id number] Univers 14:12:56 14:56:15 Visit Haydee Bhatt [employer] [id number] it y of REGIONAL [id number] Jose as MATERNAL [id number] [address] 2020-01-20 2020-01-20 [facility] [id number] Univers 14:15:00 14:15:00 HAYDEE stone [facility] 2020-01-20 2020-01-20 [facility] [id number] Univers 10:15:00 10:15:00 HAYDEE stone [facility] 2019-11-06 2019-11-06 Outpatient Sheri TINAJERO [facility] [id number] Univers 13:30:00 13:30:00 APRIL stone [facility] 2019-10-21 2019-10-21 Office [facility] 1.2.451.223 [id number] Univers 10:37:18 11:28:17 Visit Haydee Miller SHIPYARD HELPER 350.1.13.10 it y of [facility] 4.2.7.2.686 Jose as MATERNAL [phone] [facility] ical & CHILD [address] [place] [address] 2019-10-21 2019-10-21 [facility] [id number] Univers 10:15:00 10:15:00 HAYDEE stone [facility] 2019-10-21 2019-10-21 Orders Doctor EUFEMIA 1.2.840.114 [id number] Univers 00:00:00 00:00:00 Only Unassigned, NORA 350.1.13.10 [facility] 4.2.7.2.686 Jose as [phone] [address] 2019-09-09 2019-09-09 Outpatient Sheri [facility] [id number] Univers 08:30:00 08:30:00 APRIL padminiromel [facility] 2019-07-10 2019-07-10 Orders Doctor EUFEMIA 1.2.840.114 [id number] Univers 00:00:00 00:00:00 Only Unassigned, NORA 350.1.13.10 [facility] 42.7.2.686 Jose as [phone] [address] 2019-07-09 2019-07-09 Emergency X DEN, [facility] ERT [id number] Univers 15:20:44 17:55:00 MANISHA padminiromel [facility] 2019-07-09 2019-07-09 Emergency [facility] 1.2.840.114 [id number] Univers 15:20:44 17:55:00 Manisha Stover 350.1.13.10 ity of [place] 4.2.7.2.686 [place] [facility] [phone] [address] 2019-07-09 2019-07-09 Telemedici [facility] 1.2.840.114 [id number] Univers 14:43:51 15:54:56 ne Visit Roger Wade SHIPYARD HELPER 350.1.13.10 ity of [facility] 4.2.7.2.686 Jose as MATERNAL [phone] [facility] [address] [place] [address] 2019-07-09 2019-07-09 [facility] [id number] Univers 13:30:00 13:30:00 ROGER [place] f [facility] 2019-07-09 2019-07-09 Outpatient R [facility]OR [facility] [id number] Univers 09:30:00 09:30:00 APRIL ity [facility] 2019-07-09 2019-07-09 Telephone [facility] 1.2.363.602 [id number] Univers 00:00:00 00:00:00 Roger Wade SHIPYARD HELPER 350.1.13.10 ity of [facility] 4.2.7.2.686 Jose as MATERNAL [phone] [facility] [address] [place] [address] 2019-07-09 2019-07-09 Orders Doctor EUFEMIA 1.2.840.114 [id number] Univers 00:00:00 00:00:00 Only Unassigned, NORA 350.1.13.10 ity of [place] [facility] 4.2.7.2.686 Jose as [phone] [address] 2019-07-08 2019-07-08 Telephone Jj Rodriguez [facility] 1.2.840.114 [id number] Univers 00:00:00 00:00:00 Cam Decker 350.1.13.10 i ty of [place] 4.2.7.2.686 [place] [phone] Pa dical [address] 2019-07-08 2019-07-08 Telephone Jj Rodriguez [facility] 1.2.840.114 [id number] Univers 00:00:00 00:00:00 Cam Decker 350.1.13.10 i [place] of [place].2.7.2.686 [place] [phone] [address] 2019-07-07 2019-07-07 Telephone Jj Rodriguez [facility] 1.2.840.114 [id number] Univers 00:00:00 00:00:00 Jamey Stover 350.1.13.10 i ty of [place] 4.2.7.2.686 [place] [phone] [address] 2019-07-07 2019-07-[address] [facility] 1.2.840.114 [id number] Univers 00:00:00 00:00:00 Rebecca Joya SHIPYARD HELPER 350.1.13.10 i ty of [facility] 4.2.7.2.686 Jose as MATERNAL [phone] [facility] ical & CHILD [address] [place] [address] 2019-07-07 2019-07-[address] [facility] 1.2.840.114 [id number] Univers 00:00:00 00:00:00 Rebecca Joya SHIPYARD HELPER 350.1.13.10 i ty of [facility] 4.2.7.2.686 Jose as MATERNAL [phone] Med ical & CHILD [address] [place] [address] 2019-06-18 2019-06-18 [facility] [id number] Univers 08:30:00 08:30:00 APRIL ity [facility] 2019-06-13 2019-06-13 Telephone Jj Rodriguez [facility] 1..840.114 [id number] Univers 00:00:00 00:00:00 Jamey Stover 350.1.13.10 i [place].2.7.2.686 [place] [phone] [address] 2019-01-02 2019-01-02 [facility] 1.2.799.380 [id number] Univers 10:43:39 11:51:10 Jamey Stover 350.1.13.10 ity of [place] 4.2.7.2.686 [place] [phone] [address] 2018-12-31 2018-12-31 [facility] Shirin Rodriguezen [facility] 1.2.840.114 [id number] [facility] 08:53:00 13:05:00 Encounter Cam Decker 350.1.13.10 ity of [place] 4.2.7.2.686 [place] [phone] [facility] [address] 2018-12-30 2018-12-30 Oil Winterizer 1, Adc Lab [facility] 1.2.840.114 [id number] Univers 15:01:59 15:16:59 Visit April Tinajero 350.1.13.10 ity of [place] 4.2.7.2.686 [place] [phone] [facility] [address] 2018-12-30 2018-12-30 Telephone Jj Rodriguez [facility] 1.2.840.114 [id number] Univers 00:00:00 00:00:00 Cam Decker 350.1.13.10 i ty of [place] 4.2.7.2.686 [place] [phone] Pa dic[address] 2018-12-26 2018-12-26 Routine April Tinajero [facility] 1.2.840.11 [id number] Univers 10:29:04 11:38:12 Shirin Rodriguezsumi Stover 350.1.13.10 ity of Visit [place] 4.2.7.2.686 [place] [phone] Pa dical nal [address] [place] [address] 2018-12-23 2018-12-23 Hospital Jj Rodriguez [facility] 1.2.840.114 [id number] [facility] 18:32:00 20:05:00 Encounter Jamey Decker 350.1.13.10 ity of [place] 4.2.7.2.686 [place] [phone] [address] 2018-12-20 2018-12-20 Oil Winterizer Ultrasound, [facility] 1.2 .840.114 [id number] Univers 10:29:00 10:59:00 Visit Shirin Rodriguezsumi Stover 350.1.13.10 ity of [place] 4.2.7.2.686 [place] [phone] [address] 2018-12-20 2018-12-20 Abstract [facility] 1.2.840.114 [id number] [facility] 00:00:00 00:00:00 Monse Magallanes SHIPYARD HELPER 350.1.13.10 ity of [facility] 4.2.7.2.686 Jose as MATERNAL [phone] Med ical & CHILD 107 [facility] 2018-12-12 2018-12-12 Routine [facility] 1.2.166.122 [id number] [facility] 11:25:29 12:38:21 April Stover 350.1.13.10 ity of [place] 4.2.7.2.686 [place] [phone] Pa dic[address] 2018-12-11 2018-12-11 Hospital Jj Rodriguez [facility] 1.2.840.114 [id number] [facility] 15:18:21 18:40:00 Encounter Jamey Stover 350.1.13.10 ity of [place] 4.2.7.2.686 [place] [phone] [address] 2018-12-11 2018-12-11 Telephone Jj Rodriguez [facility] 1.2.840.114 [id number] [facility] 00:00:00 00:00:00 Jamey Stover 350.1.13.10 i ty of [place] 4.2.7.2.686 [place] [phone] Pa dicde nal [address] [place] [address] 2018-11-28 2018-11-28 Routine Jj Rodriguez [facility] 1.2.670.435 [id number] [facility] 15:45:04 16:32:34 Jamey Stover 350.1.13.10 ity of [place] 4.2.7.2.686 [place] [phone] Pa dic[address] 2018-11-20 2018-11-20 Routine Juan [facility] 1.2.482.477 [id number] [facility] 10:59:38 11:59:22 April Stover 350.1.13.10 ity of [place] 4.2.7.2.686 [place] [phone] Pa dicde nal [address] [place] [address] 2018-11-20 2018-11-20 Oil Winterizer 1, Adc Lab [facility] 1.2.840.114 [id number] Univers 08:13:04 08:28:04 Visit Jj Rodriguezton 350.1.13.10 ity of [place] 4.2.7.2.686 [facility] [phone] [facility] [address] 2018-11-20 2018-11-20 Telephone [facility] 1.2.840.114 [id number] Univers 00:00:00 00:00:00 Monse Magallanes SHIPYARD HELPER 350.1.13.10 ity of [facility] 4.2.7.2.686 Jose as MATERNAL [phone] Med ical & CHILD 107 [facility] 2018-11-20 2018-11-20 Orders Doctor EUFEMIA 1.2.840.114 [id number] Univers 00:00:00 00:00:00 Only Unassigned, NORA 350.1.13.10 ity of [place] [facility] 4.2.7.2.686 Jose as [phone] [facility] [address] 2018-11-10 2018-11-10 [facility] 1.2.840.114 [id number] Univers 03:10:00 04:31:00 Encounter Ally Jolanta 350.1.13.10 ity of [place] 4.2.7.2.686 [facility] [phone] [facility] [address] 2018-11-10 2018-11-10 Nurse Mrajorie Gray 1.2.840.114 [id number] Univers 00:00:00 00:00:00 Triage NORA 350.1.13.10 it y of HOSPITAL 4.2.7.2.686 Jose as [phone] [facility] [address] 2018-11-10 2018-11-10 Orders Doctor EUFEMIA 1.2.840.114 [id number] Univers 00:00:00 00:00:00 Only Unassigned, NORA 350.1.13.10 ity of [place] [facility] 4.2.7.2.686 Jose as [phone] [facility] [address] 2018-09-26 2018-09-26 Outpatient [facility] [id number] Univers 11:00:00 11:28:22 MONSE webb [facility] Results Test Description Test Time Test Comments Results Result Comments Source URINE CULTURE 2020-06-27 16:54:14 Test Item Value Reference Range Interpretation Comme nts URINE CULTURE (test code = 630-4) 10,000 - 100,000 CFU/mL mixed aer obic organisms - suggests endogenous microbial contamination [facility] 00:08:14 Test Item Value Reference Range Interpretation Comments APPEARANCE (test code = Clear Clear 8880065652) COLOR (test code = Straw Yellow A 1985477574) PH (test code = 4.8-8.0 0905867280) SP GRAVITY (test code = 1.003-1.030 8289877703) GLU U QUAL (test code = Normal Normal 6986816893) BLOOD (test code = Negative Negative 3490197698) KETONES (test code = Negative Negative 9781225691) PROTEIN (test code = Negative Negative 2887-8) UROBILIN (test code = Normal Normal 5195301284) BILIRUBIN (test code = Negative Negative 5360483915) NITRITE (test code = Negative Negative 0629618959) LEUK BERYL (test code = 75/uL Negative A 8141925665) RBC/HPF (test code = <1 See_Comment [Autom ated message] 0777508555) The system [employer] generated this result transmitted ref erence range: 0 - 3 HP F. The reference range was not used to int erpret this result as normal/abnormal . WBC/HPF (test code = See_Comment [Autom ated message] 8515199062) The system [employer] generated this result transmitted ref erence range: 0 - 5 HP F. The reference range was not used to int erpret this result as normal/abnormal . BACTERIA (test code = Negative Negative 2050271351) SQ EPITH (test code = See_Comment [Auto mated message] 9219232516) The system [employer] generated this result transmitted ref erence range: <=2 HPF. The reference range was not used to int erpret this result as normal/abnormal . Lab Interpretation (test Abnormal code = 58040-9) [facility] [id number] 00:08:03 Test Item Value Reference Range Interpretation Comments TSH (test code = See_Comment Biotin has been 4305755478) reported to cau se a negative bias, interpret resul ts relative to pat melisa's use of biotin. [Automated mess age] The system whic h generated this result transmitted ref erence range: 0.45 - 4 .70 mIU/L. The refe rence range was not u sed to interpret this result as normal/abnor mal. Lab Interpretation (test Normal code = 59212-1) [facility] WITH [id number] 23:27:12 Test Item Value Reference Range Interpretation Comments WBC (test code = See_Comment [Automated 6690-2) message] The sy stem which generated this result transmitted reference range : 4.30 - 11.10 10*3/?L. The reference range was not used to interpret this result as normal/abnormal . RBC (test code = See_Comment [Automated 789-8) message] The sy stem which generated this result transmitted reference range : 3.93 - 5.25 10*6/?L. The reference range was not used to interpret this result as normal/abnormal . HGB (test code = 10.9 g/dL 11.6-15.0 L 718-7) HCT (test code = 36.3 % 35.7-45.2 4544-3) MCV (test code = 82.9 fL 80.6-95.5 787-2) MCH (test code = 24.9 pg 25.9-32.8 L 785-6) MCHC (test code = 30.0 g/dL 31.6-35.1 L 786-4) RDW-SD (test code = 40.0 fL 39.0-49.9 80657-4) RDW-CV (test code = 13.2 % 12.0-15.5 788-0) PLT (test code = See_Comment [Automated 777-3) message] The sy stem which generated this result transmitted reference range : 166 - 358 10*3/ ?L. The reference r nydia was not used to interpret this result as normal/abnormal . MPV (test code = 10.1 fL 9.5-12.9 98138-9) NRBC/100 WBC (test See_Comment [Automat ed code = 0074789714) message] The system which generated this result transmitted reference range : 0.0 - 10.0 /100 WBCs. The refer ence range was not u sed to interpret th is result as normal/abnormal . NRBC x10^3 (test code <0.01 See_Comment [Auto mated = 5860383033) message] The s ystem which generated this result transmitted reference range : 10*3/?L. The reference range was not used to interpret this result as normal/abnormal . GRAN MAT (NEUT) % 61.7 % (test code = 770-8) IMM GRAN % (test code 0.20 % = 4313467892) LYMPH % (test code = 29.3 % 736-9) MONO % (test code = 6.7 % 5905-5) EOS % (test code = 1.5 % 713-8) BASO % (test code = 0.6 % 706-2) GRAN MAT x10^3(ANC) 4.08 10*3/uL 1.88-7.09 (test code = 0705401143) IMM GRAN x10^3 (test <0.03 0.00-0.06 code = 0908100910) LYMPH x10^3 (test code 1.94 10*3/uL 1.32-3.29 = 731-0) MONO x10^3 (test code 0.44 10*3/uL 0.33-0.92 = 742-7) EOS x10^3 (test code = 0.10 10*3/uL 0.03-0.39 711-2) BASO x10^3 (test code 0.04 10*3/uL 0.01-0.07 = 704-7) Lab Interpretation Abnormal (test code = 77363-7) [facility] PELVIS COMPLETE WITH [id number] 22:16:40 Unremarkable ultrasound of the uterus and ovaries. Preliminary Report Dictated by Resident: Horacio Sotelo MD., have reviewed this study and agree with the abovereport.EXAM: US PELVIS COMPLETE WITH TRANSVAGINAL HISTORY: 29 years -old Female with Pelvic pain . LMP = TECHNIQUE: Transabdominal and transvaginal ultrasound imaging of the pelviswas performed including color Doppler evaluation. [employer] imageswere obtained for the record. COMPARISON: Pelvis ultrasound dated 07/09/2019. FINDINGS: Uterus: The uterus is normal in size, 8.3 x 3.8 x 6.5 cm. The myometrium ishomogenous. No focal lesion is detected. The endometrium is normal inappearance. Endometrial thickness measures 11 mm. The cervix isunremarkable. Right Adnexa:Ovary size: 3.2 x 1.7 x 2.2 cm, with volume of 6.1mL.Ovary appearance: Few small follicles.Other: No mass. Left Adnexa:Ovary size: 2.4 x 1.7 x 1.8 cm,with volume of 3.8 mL.Ovary appearance: Normal.Other: No mass. Cul-de-sac: No free fluid [facility], Radiant Results Inft User - 03/19/2020 4:17 PM CSTEXAM: US PELVIS COMPLETE WITH TRANSVAGINALHISTORY: 29 years -old Female with Pelvic pain . LMP =TECHNIQUE: Transabdominal and transvaginal ultrasound imagingof the pelviswas performed including color Doppler evaluation. [employer] imageswere obtained for the record.COMPARISON: Pelvis ultrasound dated 07/09/2019.FINDINGS:Uterus: The uterus is normal in size, 8.3 x 3.8 x 6.5 cm. The myometrium ishomogenous. No focal lesion is detected. The endometrium isnormal inappearance. Endometrial thickness measures 11 mm. The cervix isunremarkable.Right Adnexa:Ovary size: 3.2 x 1.7 x 2.2 cm, with volume of 6.1 mL.Ovary appearance: Few small follicles.Other: No mass.Left Adnexa:Ovary size: 2.4 x 1.7 x 1.8 cm, with volume of 3.8 mL.Ovary appearance: Normal.Other:No mass.Cul-de-sac: No free fluidIMPRESSIONUnremarkable ultrasound of the uterus and ovaries.Preliminary Report Dictated by Resident: Horacio Carreon MD., have reviewed this study and agree with the abovereport.[facility] P[facility] W [id number] 22:00:59CT Abdomen and Pelvis with intravenous contrast. CLINICAL HISTORY: Right lower quadrant abdominal ten derness. DOSE: Up-to-date CT equipment and radiation dose reduction techniques wereemployed. CTDIvol: 5.97 mGy. DLP: 284 mGy-cm. TECHNIQUE : Contiguous axial imaging from the level of the lung basesthrough the pubic symphysis were performed after the uncomplicatedadministration of Omnipaque contrast material. Coronal and sagittalreconstructions were obtained. Auto mA and/or iterative reconstruction wereused to reduce radiation dose. FINDINGS: ? Lower lungs: Clear. No definite evidence of hiatal hernia. Liver, Gallbladder and Spleen: Liver is slightly enlarged, measuring 17.4cm in length without anyfocal liver lesions visualized. Spleen measuresapproximately 12 x 4.7 cm. No calcified gallstones. Biliary ducts and thepancreatic duct appear of normal size. Peritoneum: ?No free air or free fluid. Nolymphadenopathy. Pancreas and Adrenals: ?Unremarkable pancreas and adrenal glands. Kidneys and Ureters: ?No visible calculi in the renal collecting systems. No hydroureter or hydronephrosis. No enhancing kidney lesions. Vessels: Normal. Retroperitoneum: No abnormal fluid or lymphadenopathy. Bowel: Mild constipation. Appendix is not definitely identified, however, Carlos not see any CT signs of acute appendicitis. Bladder and Reproductive Organs: Thickened endometrium is likelyphysiologic. Small amount of free fluid in the pelvis is also likelyphysiologic. 2.6 cm cyst is noted in the left ovary.Mild thickening of the urinary bladder wall is noted. No other grossabnormalities seen in the unopacified urinary bladder. Bones: Unremarkable. Soft tissues: Unremarkable. CONCLUSION:1. No definite acute intra- abdominal or pelvic abnormalities detected.Slightly thickened urinary bladder pitts is nonspecific. Please correlateclinically for possibility of mild cystitis.2. Cyst in the left ovary, thickened endometrium and minimal free fluid inthe cul-de-sac likely physiologic changes.3. Appendix is not definitely identified, however, I do not see any CTsigns of acute appendicitis.4. Mild hepatomegaly. [facility], Radiant Results Inft User - 07/09/2019 5:02 PM CDTCT Abdomen and Pelvis with intravenous contrast.CLINICAL HISTORY: Right lower quadrant abdominal tenderness.DOSE: Up-to-date CT equipment and radiation dose reduction techniques wereemployed. CTDIvol: 5.97 mGy. DLP: 284 mGy-cm.TECHNIQUE : Contiguous axial imaging from the level of the lung basesthrough the pubic symphysis were performed after the uncomplicatedadministration of Omnipaque contrast material. Coronal and sagittalreconstructions were obtained. Auto mA and/or iterative reconstruction wereused to reduce radiation dose.FINDINGS: Lower lungs: Clear. No definite evidence of hiatal hernia.Liver, Gallbladder and Spleen: Liver is slightly enlarged, measuring 17.4cm in length without any focal liver lesions visualized. Spleen measuresapproximately 12 x 4.7 cm. No calcified gallstones. Biliary ducts and thepancreatic duct appear of normal size.Per itoneum: No free air or free fluid. No lymphadenopathy.Pancreas and Adrenals: Unremarkable pancreas and adrenal glands.Kidneys and Ureters: No visible calculi in the renal collecting systems. No hydroureter or hydronephrosis. No enhancing kidney lesions. Vessels: Normal.Retroperitoneum: No abnormal fluid or lymphadenopathy.Bowel: Mild constipation. Appendix is not definitely identified, however, Carlos not see any CT signs of acute appendicitis.Bladder and Reproductive Organs: Thickened endometrium is likelyphysiologic. Small amount of free fluid in the pelvis is also likelyphysiologic. 2.6 cm cyst isnoted in the left ovary.Mild thickening of the urinary bladder wall is noted. No other grossabnormalities seen in the unopacified urinary bladder.Bones: Unremarkable.Soft tissues: Unremarkable.CONCLUSION:1. No definite acute intra- abdominal or pelvic abnormalities detected.Slightly thickened urinary bladder pitts is nonspecific. Please correlateclinically for possibility of mild cystitis.2. Cyst in the left ovary, thickened endometrium and minimal free fluid inthe cul-de-sac likely physiologic changes.3. Appendix is not definitely identified, however, I do not see any CTsigns of acute appendicitis.4. Mild hepatomegaly.[facility] OVARY [id number] 21:20:36HISTORY: Right-sided lower abdominal pain. Rule out ovarian torsion. TECHNIQUE: Both transabdominal and transvaginal pelvic ultrasound studieswere completed by the technologist. FINDINGS: Uterus is slightly enlarged, measures approximately 8.8 x 4.7 x5.8 cm in size with homogeneous echo texture of the myometrium. Endometrialecho complex is 12.6 mm. Minimal free fluid noted in the cul-de-sac. Right ovary is 3.0 x 1.3 x 2.4 cm (5.20 ml) and left ovary is 3.9 x 2.9 x2.8 cm (17.95 ml). Small follicles are present in the ovaries and there isone large dominant 2.2 x 1.8 cm unilocular cyst in the left ovary. CONCLUSIONS: 1. No acute findings and ultrasound of pelvis detected. Specifically, nosonographic signs of ovarian torsion.2. Slightly enlarged left ovary due to 2.2 cm cyst. [facility], Radiant Results Inft User - 07/09/2019 4:21 PM CDTHISTORY: Right-sided lower abdominal pain. Rule out ovarian torsion.TE CHNIQUE: Both transabdominal and transvaginal pelvic ultrasound studieswere completed by the technologist.FINDINGS: Uterus is slightly enlarged, measures approximately 8.8 x 4.7 x5.8 cm in size with homogeneous echo texture of the myometrium. Endometrialecho complex is 12.6 mm. Minimal free fluid noted in the cul-de-sac. Right ovary is 3.0 x 1.3 x 2.4 cm (5.20 ml) and left ovary is 3.9 x 2.9 x2.8 cm (17.95 ml). Small follicles are present in the ovaries and there isone large dominant 2.2 x 1.8 cm unilocular cyst in the left ovary.CONCLUSIONS: 1. No acute findings and ultrasound of pelvis detected. Specifically, nosonographic signs of ovarian torsion.2. Slightly enlarged left ovary due to 2.2 cm cyst.[facility]. METABOLIC PANEL (12733) 2019-07-09 21:19:00 Test Item Value Reference Range Interpretation Comments NA (test code = 138 mmol/L 135-145 5813846192) K (test code = 4.4 mmol/L 3.5-5 4089201439) CL (test code = 106 mmol/L 98-108 2691634212) CO2 TOTAL (test code = 25 mmol/L 23-31 0932122313) AGAP (test code = 2-16 7666226905) BUN (test code = 14 mg/dL 7-23 8126899854) GLUCOSE (test code = 93 mg/dL 70-110 9416422530) CREATININE (test code 0.60 mg/dL 0.5-1.04 = 0017259434) TOTAL BILI (test code 0.4 mg/dL 0.1-1.1 = 2506096339) CALCIUM (test code = 9.7 mg/dL 8.6-10.6 3677848450) T PROTEIN (test code = 7.4 g/dL 6.3-8.2 3627970895) ALBUMIN (test code = 4.6 g/dL 3.5-5 1279108382) ALK PHOS (test code = 60 U/L 34-122 9808858630) ALTv (test code = 18 U/L 5-35 1742-6) AST(SGOT) (test code = 23 U/L 13-40 0028655279) eGFR Calculation mL/min/1.73m2 (Non-) (test code = 9131519432) eGFR Calculation mL/min/1.73m2 () (test code = 6516581244) ELAINE (test code = ELAINE) Association of Glomerular Filtration Rate (GFR) and Staging of Kidney Disease* + -+ + ---+| GFR (mL/min/1.73 m2) ?| With Kidney Damage ?| ?Without Kidney Damage+ -------+ ------+ ---------+| ?>90 ?| ?Stage one ?| ? Normal ?+ --+ -+ ----+| ?60-89 ?| ?Stage two ?| ? Decreased GFR ? + -+ + ---+| ?30-59 ?| ?Stage three ?| ? Stage three ? + -+ + ---+| ?15-29 ?| ?Stage four ? | ? Stage four ?+ --+ -+ ----+| ?<15 (or dialysis) ? ?| ?Stage five ? | ? Stage five ?+ --+ -+ ----+ *Each stage assumes the associated GFR level has been in effect for at least three months. ?Stages 1 to 5, with or without kidney disease, indicate chronic kidney disease. Notes: Determination of stages one and two (with eGFR >59mL/min/1.73 m2) requires estimation of kidney damage for at least three months as defined by structural or functional abnormalities of the kidney, manifested by either:Pathological abnormalities or Markers of kidney damage (including abnormalities in the composition of the blood or urine or abnormalities in imaging tests). [facility] 21[facility]04:00 Test Item Value Reference Range Interpretation Comments APPEARANCE (test code = Hazy Clear A 2212686384) COLOR (test code = Yellow Yellow 8805325472) PH (test code = 4.8-8.0 0752246358) SP GRAVITY (test code = 1.003-1.030 8300900117) GLU U QUAL (test code = Normal Normal 1747863761) BLOOD (test code = Negative Negative 2838430681) KETONES (test code = Negative Negative 4030936284) PROTEIN (test code = Negative Negative 2887-8) UROBILIN (test code = Normal Normal 8363321532) BILIRUBIN (test code = Negative Negative 9919566953) NITRITE (test code = Negative Negative 8106782930) LEUK BERYL (test code = 75/uL Negative A 4650842633) RBC/HPF (test code = See_Comment H [Autom ated message] 1241404520) The system [employer] generated this result transmitted ref erence range: 0 - 3 HP F. The reference range was not used to int erpret this result as normal/abnormal . WBC/HPF (test code = See_Comment H [Autom ated message] 0214015547) The system [employer] generated this result transmitted ref erence range: 0 - 5 HP F. The reference range was not used to int erpret this result as normal/abnormal . BACTERIA (test code = Few Negative A 8888363948) SQ EPITH (test code = HPF 3315449987) Lab Interpretation (test Abnormal code = 55309-5) [facility] [id number] 20:56:00 Test Item Value Reference Range Interpretation Comments WBC (test code = See_Comment [Automated 1690-2) message] The sy stem which generated this result transmitted reference range : 4.30 - 11.10 10*3/?L. The reference range was not used to interpret this result as normal/abnormal . RBC (test code = See_Comment [Automated 549-8) message] The sy stem which generated this result transmitted reference range : 3.93 - 5.25 10*6/?L. The reference range was not used to interpret this result as normal/abnormal . HGB (test code = 12.0 g/dL 11.6-15 718-7) HCT (test code = 36.1 % 35.7-45.2 4544-3) MCV (test code = 87.6 fL 80.6-95.5 787-2) MCH (test code = 29.1 pg 25.9-32.8 785-6) MCHC (test code = 33.2 g/dL 31.6-35.1 786-4) RDW-SD (test code = 38.5 fL 39-49.9 L 63880-3) RDW-CV (test code = 11.9 % 12-15.5 L 788-0) PLT (test code = See_Comment [Automated 777-3) message] The sy stem which generated this result transmitted reference range : 166 - 358 10*3/ ?L. The reference r nydia was not used to interpret this result as normal/abnormal . MPV (test code = 9.3 fL 9.5-12.9 L 40086-2) NRBC/100 WBC (test See_Comment [Automat ed code = 4998371023) message] The system which generated this result transmitted reference range : 0.0 - 10.0 /100 WBCs. The refer ence range was not u sed to interpret th is result as normal/abnormal . NRBC x10^3 (test code <0.01 See_Comment [Auto mated = 0384102619) message] The s ystem which generated this result transmitted reference range : 10*3/?L. The reference range was not used to interpret this result as normal/abnormal . GRAN MAT (NEUT) % 65.7 % (test code = 770-8) IMM GRAN % (test code 0.30 % = 4163357766) LYMPH % (test code = 23.5 % 736-9) MONO % (test code = 6.5 % 5905-5) EOS % (test code = 3.3 % 713-8) BASO % (test code = 0.7 % 706-2) GRAN MAT x10^3(ANC) 5.74 10*3/uL 1.88-7.09 (test code = 9413718880) IMM GRAN x10^3 (test 0.03 10*3/uL 0-0.06 code = 3919732502) LYMPH x10^3 (test code 2.06 10*3/uL 1.32-3.29 = 731-0) MONO x10^3 (test code 0.57 10*3/uL 0.33-0.92 = 742-7) EOS x10^3 (test code = 0.29 10*3/uL 0.03-0.39 711-2) BASO x10^3 (test code 0.06 10*3/uL 0.01-0.07 = 704-7) Lab Interpretation Abnormal (test code = 40153-4) [facility] [id number] 20:33:00 Test Item Value Reference Range Interpretation Comments POCT PREG (test code = 1605) Negative On board controls acceptable with Present C Line (test code = 3574) POCT PREG LOT # (test code = HCG [id number]) POCT PREG TEST DATE (test 12/14/2020 code = 3576) Lab Interpretation (test code = Normal 82076-8) [facility] URINALYSIS W/O SPECIFIC [id number] 16:40:00 Test Item Value Reference Range Interpretation Comments POCT PH U (test code = 3254) n/a 5-8 POCT U LEUK EST (test code = n/a Negative - Negative 3263) POCT U NIT (test code = 3262) n/a Negative - Negative POCT U PROT (test code = 3259) negative Negative - Negative POCT U GLU (test code = 3256) negative Negative - Negative POCT U KETONE (test code = 3258) n/a Negative - Negative POCT U BLD (test code = 3257) n/a Negative - Negative Lab Interpretation (test code = Normal 03489-1) [facility]>14 WEEKS US [id number] 17:01:54[facility] SPECIFIC [id number] 16:08:00 Test Item Value Reference Range Interpretation Comments POCT PH U (test code = 3254) NA 5-8 POCT U LEUK EST (test code = NA Negative - Negative 3263) POCT U NIT (test code = 3262) NA Negative - Negative POCT U PROT (test code = 3259) Negative Negative - Negative POCT U GLU (test code = 3256) Negative Negative - Negative POCT U KETONE (test code = 3258) NA Negative - Negative POCT U BLD (test code = 3257) NA Negative - Negative [facility] PasoFETAL NON-STRESS [id number] 01:09:33 Reactive and reassuringToco with irritability Jj Rodriguez MD?12/23/2018?8:09 PM [facility] ONLY - WET [id number] 23:16:00 Test Item Value Reference Range Interpretation Comments Wet Prep (test code Occasional (Rare) Clue = [id number]) cells present [facility] URINALYS[facility] W/O SPECIFIC [id number] 21:30:00 Test Item Value Reference Range Interpretation Comments POCT PH U (test code = 3254) 7 mg/dl 5-8 POCT U LEUK EST (test code = negative Negative - Negative 3263) POCT U NIT (test code = 3262) negative Negative - Negative POCT U PROT (test code = 3259) negative Negative - Negative POCT U GLU (test code = 3256) negative Negative - Negative POCT U KETONE (test code = 3258) negative Negative - Negative POCT U BLD (test code = 3257) negative Negative - Negative [facility] W/O SPECIFIC [id number] 16:29:00 Test Item Value Reference Range Interpretation Comments POCT PH U (test code = 3254) N/A 5-8 POCT U LEUK EST (test code = N/A Negative - Negative 3263) POCT U NIT (test code = 3262) N/A Negative - Negative POCT U PROT (test code = 3259) Negative Negative - Negative POCT U GLU (test code = 3256) Negative Negative - Negative POCT U KETONE (test code = 3258) N/A Negative - Negative POCT U BLD (test code = 3257) N/A Negative - Negative [facility]"
[2022-08-10] MEDS ORDERED: ONDANSETRON 4 MG/2 ML VIAL ONE (17:34)
[2022-08-10] MEDS ORDERED: NA CHLORIDE 0.9% 1,000 ML ONE (17:34)
[2022-08-10 17:59] LABS: Specific Gravity 1.017 (1.005-1.030)
[2022-08-10 18:00] LABS: Specific Gravity 1.017 (1.005-1.030); Urine Bacteria <20 /HPF (<20); Urine Bilirubin NEGATIVE (Negative); Urine Blood 1+ (Negative); Urine Clarity Clear (Clear); Urine Color Light-Yellow (Yellow); Urine Glucose NEGATIVE (Negative); Urine Mucus Slight /HPF (None Seen); Urine Protein NEGATIVE (Negative); Urine Urobilinogen Normal (Normal); Urine pH 5.5 (5.0-7.0)
[2022-08-10 18:15] LABS: Albumin 4.5 g/dL (3.4-5.0); Bilirubin Total 0.4 mg/dL (0.2-1.0); Potassium 3.6 mEq/L (3.5-5.1); Protein, Total 8.2 g/dL (6.4-8.2)
--- NOTE | 2022-08-10 18:27 | RAD REPORT ---
EXAM DESCRIPTION: US - Transvaginal Study Probe - 08/10/2022 6:02 pm CLINICAL HISTORY: ABD PAIN COMPARISON: Transvaginal Study Probe dated 06/14/2020 TECHNIQUE: Sonographic grayscale and color flow images of the pelvis were obtained through transva ginal approach. FINDINGS: The uterus is normal in size, shape and echotexture. The uterus measures 8.9 centimeter in length. The endometrial stripe is thickened and heterogeneous, measuring up to 2.1 centimeter in thickness. Left ovary is normal in size, without suspicious lesions, measuring 1.4 x 2.7 x 0.1 centimeter. Right ovary was not visualized. No ovarian or parovarian lesions. No adnexal masses. Normal Doppler blood flow was demonstrated to from the left ovary. No significant pelvic ascites. IMPRESSION: Endometrial stripe is thickened and heterogeneous, up to 2.1 centimeter in thickness. No suspicious adnexal abnormality. Study is limited by nonvisualization of the right ovary.
[2022-08-10 18:30] LABS: Absolute Lymphocytes (CBC) 1.7 K/uL (0.7-4.9); Hematocrit 32.2 % (36.0-45.0); Lymphocytes % 31.3 % (15.3-44.8); MCV 74.4 fL (80-100); MPV 7.2 fL (7.6-11.3); RBC Red Blood Cell Count 4.33 M/uL (3.86-4.86)
--- NOTE | 2022-08-10 19:16 | RAD REPORT ---
EXAM DESCRIPTION: CT - Abdomen Pelvis W Contrast - 08/10/2022 6:45 pm CLINICAL HISTORY: ABD PAIN COMPARISON: No comparisons TECHNIQUE: Thin cut axial CT imaging of the abdomen and pelvis was performed following intravenous a dministration of 95 mL Isovue 300. Multiplanar reformats were generated and reviewed. All CT scans are performed using dose optimization technique as appropriate and may include automated exposure control or mA/KV adjustment according to patient size. FINDINGS: No suspicious findings in the lung bases. The liver, spleen, and pancreas show no suspicious findings. Gallbladder and biliary tree are also wi thout suspicious finding. Symmetric renal function is seen with no hydronephrosis or suspicious renal mass. No dilated bowel loops or bowel wall thickening. The appendix is normal in appearance. No free air, f ree fluid or inflammatory stranding. No hernia, mass or bulky lymphadenopathy. The urinary bladder is without significant finding. No suspicious bony findings. IMPRESSION: No acute intra-abdominal process.
--- NOTE | 2022-08-10 19:27 | EDPHYS ---
Physician Documentation [facility] Name: Noreen Jonas Age: 32 yrs Sex: Female : 1990 Arrival Date: 08/10/2022 Time: 17:15 Bed Treatment Private MD: ED Physician Joo Humphreys HPI: 08/10 17:49 This 32 yrs old Female presents to ER via Ambulatory with complaints of Abdominal Pain. kb 17:49 The patient presents with abdominal pain in the lower abdomen. Onset: The kb symptoms/episode began/occurred 4 day(s) ago. The symptoms do not radiate. Associated signs and symptoms: Pertinent positives: nausea and vomiting, vaginal discharge. The symptoms are described as constant. Modifying factors: The symptoms are alleviated by nothing, the symptoms are aggravated by pressure. Severity of pain: At its worst the pain was moderate in the emergency department the pain is unchanged. The patient has not experienced similar symptoms in the past. The patient has not recently seen a physician. Historical: - Allergies: 17:21 PAPAYA; ll1 17:21 Ibuprofen; ll1 - PMHx: 17:21 Endometrosis; ll1 - PSHx: 17:24 tubal ligation; ll1 - Immunization history:: Adult Immunizations up to date. - Social history:: Smoking status: Patient denies any tobacco usage or history of. ROS: 17:48 Constitutional: Negative for fever, chills, and weight loss. kb 17:48 Abdomen/GI: Positive for abdominal pain, nausea and vomiting, Negative for diarrhea, constipation. 17:48 : Positive for vaginal discharge. 17:48 All other systems are negative. Exam: 17:48 Constitutional: This is a well developed, well nourished patient who is awake, alert, kb and in no acute distress. Head/Face: Normocephalic, atraumatic. ENT: Moist Mucous membranes Cardiovascular: Regular rate and rhythm with a normal S1 and S2. No gallops, murmurs, or rubs. No pulse deficits. Respiratory: Respirations even and unlabored. No increased work of breathing. Talking in full sentences Skin: Warm, dry with normal turgor. Normal color. MS/ Extremity: Pulses equal, no cyanosis. Neurovascular intact. Full, normal range of motion. Neuro: Awake and alert, GCS 15, oriented to person, place, time, and situation. Moves all extremities. Normal gait. 17:48 Abdomen/GI: Inspection: abdomen appears normal, Bowel sounds: normal, Palpation: soft, in all quadrants, moderate abdominal tenderness, in the suprapubic area, right lower quadrant and left lower quadrant. Vital Signs: 17:21 BP 131 / 94; Pulse 81; Resp 16; Temp 98.2; Pulse Ox 97% ; Pain 9/10; ll1 18:51 BP 122 / 84; Pulse 81; Resp 16; Pulse Ox 100% ; mb9 19:48 BP 124 / 92; Pulse 80; Resp 16; Pulse Ox 100% on R/A; Pain 9/10; nj1 20:14 BP 126 / 80; Pulse 74; Resp 16; Pulse Ox 99% ; mb9 17:21 Pain Scale: Adult ll1 19:48 Pain Scale: Adult nj1 MDM: 17:20 Patient medically screened. kb 17:48 Differential diagnosis: appendicitis, Ectopic , Endometriosis, Tubal Ovarian kb Abcess, Ureterolithiasis, urinary tract infection. Data reviewed: vital signs, nurses notes. 19:24 Counseling: I had a detailed discussion with the patient and/or guardian regarding: the kb historical points, exam findings, and any diagnostic results supporting the discharge/admit diagnosis, lab results, radiology results, the need for outpatient follow up, an OB/Gyne specialist, to return to the emergency department if symptoms worsen or persist or if there are any questions or concerns that arise at home. 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 kb 08/10 17:25 Order name: CBC with Diff; Complete Time: 18:32 kb 08/10 17:25 Order name: CMP; Complete Time: 18:18 kb 08/10 17:25 Order name: Lipase; Complete Time: 18:18 kb 08/10 17:25 Order name: Test, Urine; Complete Time: 18:07 kb 08/10 17:25 Order name: Urinalysis w/ reflexes; Complete Time: 18:07 kb 08/10 17:25 Order name: CT Abd/Pelvis - IV Contrast Only; Complete Time: 19:18 kb 08/10 17:25 Order name: US Transvaginal Study (Probe); Complete Time: 18:30 kb 08/10 17:25 Order name: IV Saline Lock; Complete Time: 17:47 kb 08/10 17:25 Order name: Labs collected and sent; Complete Time: 17:47 kb 08/10 18:03 Order name: Labs - recollect needed: Lavender only; Complete Time: 18:51 ss Administered Medications: 18:51 Drug: NS 0.9% IV 1000 ml Route: IV; Rate: 1 bolus; Site: right antecubital; mb9 18:51 Drug: Ondansetron IVP 4 mg Route: IVP; Site: right antecubital; mb9 19:48 Drug: traMADol PO 50 mg Route: PO; nj1 Disposition: 18:45 Co-signature as Attending Physician, Joo Humphreys DO I was immediately available on-site ms3 in the Emergency Department for consultation in the care of the patient. Disposition Summary: 08/10/22 19:27 Discharge Ordered Location: Home kb Condition: Stable kb Diagnosis - Lower abdominal pain, unspecified kb Followup: kb - With: Emergency Department - When: As needed - Reason: Worsening of condition Followup: kb - With: Private Physician - When: 2 - 3 days - Reason: Recheck today's complaints, Continuance of care, Re-evaluation by your physician Discharge Instructions: - Discharge Summary Sheet kb - Pelvic Pain, Female, [id number] kb - Abdominal Pain, Adult, [id number]-uy-Ixyu kb Forms: - Medication Reconciliation Form kb - Thank You Letter kb - Antibiotic Education kb - Prescription Opioid Use kb Prescriptions: - Zofran 4 mg Oral Tablet - take 1 tablet by ORAL route every 6 hours As needed; 12 tablet; Refills: 0, kb Product Selection Permitted - Tramadol 50 mg Oral Tablet - take 1 tablet by ORAL route every 8 hours as needed; 12 tablet; Refills: 0, kb Product Selection Permitted Signatures: Dispatcher [employer] Marry Mccain, HEALTH SERVICE WORKER-C OBIE-Brittani Rodriguez RN RN ss Preet Pena RN RN ll1 Joo Humphreys DO DO ms3 Mary Yarbrough RN RN mb9 Lakisha Scherer RN RN nj1
--- NOTE | 2022-08-10 19:27 | ER ---
Nurse's Notes [facility] Name: Noreen Jonas Age: 32 yrs Sex: Female : 1990 Arrival Date: 08/10/2022 Time: 17:15 Bed Treatment Private MD: Diagnosis: Lower abdominal pain, unspecified Presentation: 08/10 17:21 Chief complaint: Patient states: Lower abd pain for 3-4 days with N/V. Missed last two ll1 periods but test is negative. Coronavirus screen: Client denies travel out of the [place] in the last 14 days. At this time, the client does not indicate any symptoms associated with coronavirus-19. Ebola Screen: Patient denies travel to an Ebola-affected area in the 21 days before illness onset. Initial Sepsis Screen: Does the patient meet any 2 criteria? No. Patient's initial sepsis screen is negative. Does the patient have a suspected source of infection? Yes: Acute abdominal pain. Risk Assessment: Do you want to hurt yourself or someone else? Patient reports no desire to harm self or others. Onset of symptoms was August 07, 2022. 17:21 Method Of Arrival: Ambulatory ll1 17:21 Acuity: MIAH 3 ll1 Triage Assessment: 17:24 General: Appears uncomfortable, Behavior is calm, cooperative, appropriate for age. ll1 Pain: Complains of pain in lower abdomen. GI: Reports lower abdominal pain, cramping, nausea, vomiting. 17:25 : Reports discharge, from vagina that is white, yellow. ll1 Historical: - Allergies: 17:21 PAPAYA; ll1 17:21 Ibuprofen; ll1 - PMHx: 17:21 Endometrosis; ll1 - PSHx: 17:24 tubal ligation; ll1 - Immunization history:: Adult Immunizations up to date. - Social history:: Smoking status: Patient denies any tobacco usage or history of. Assessment: 17:47 Reassessment: pt taken to ultrasound. mb9 19:05 Reassessment: Patient appears in no apparent distress at this time. Patient and/or db family updated on plan of care and expected duration. Pain level reassessed. Patient is alert, oriented x 3, equal unlabored respirations, skin warm/dry/pink. General: Appears in no apparent distress. comfortable, Behavior is calm, cooperative. 20:14 Reassessment: No changes from previously documented assessment. Patient and/or family mb9 updated on plan of care and expected duration. Pain level reassessed. Patient is alert, oriented x 3, equal unlabored respirations, skin warm/dry/pink. Patient states feeling better. Patient states symptoms have improved. Vital Signs: 17:21 BP 131 / 94; Pulse 81; Resp 16; Temp 98.2; Pulse Ox 97% ; Pain 9/10; ll1 18:51 BP 122 / 84; Pulse 81; Resp 16; Pulse Ox 100% ; mb9 19:48 BP 124 / 92; Pulse 80; Resp 16; Pulse Ox 100% on R/A; Pain 9/10; nj1 20:14 BP 126 / 80; Pulse 74; Resp 16; Pulse Ox 99% ; mb9 17:21 Pain Scale: Adult ll1 19:48 Pain Scale: Adult mo1 ED Course: 17:18 Patient arrived in ED. mr 17:20 Marry Moya, [facility] kb 17:20 Joo Humphreys DO is Attending Physician. kb 17:24 Triage completed. ll1 17:24 Arm band placed on. ll1 17:47 CBC with Diff Sent. mb9 17:47 CMP Sent. mb9 17:47 Lipase Sent. mb9 17:47 Test, Urine Sent. mb9 17:47 Urinalysis w/ reflexes Sent. mb9 18:04 US Transvaginal Study (Probe) In Process Unspecified. EDMS 18:47 CT Abd/Pelvis - IV Contrast Only In Process Unspecified. EDMS 18:51 Placed in gown. Bed in low position. Call light in reach. Side rails up X 1. Client mb9 placed on continuous cardiac and pulse oximetry monitoring. NIBP monitoring applied. 18:51 No provider procedures requiring assistance completed. mb9 19:34 Lakisha Scherer, RN is Primary Nurse. nj1 20:14 IV discontinued, intact, bleeding controlled, No redness/swelling at site. Pressure mb9 dressing applied. Administered Medications: 18:51 Drug: NS 0.9% IV 1000 ml Route: IV; Rate: 1 bolus; Site: right antecubital; mb9 18:51 Drug: Ondansetron IVP 4 mg Route: IVP; Site: right antecubital; mb9 19:48 Drug: traMADol PO 50 mg Route: PO; nj1 Medication: 18:51 VIS not applicable for this client. mb9 Outcome: 19:27 Discharge ordered by MD. jacuqes 20:14 Discharged to home ambulatory. mb9 20:14 Condition: stable 20:14 Discharge instructions given to patient, Instructed on discharge instructions, follow up and referral plans. Demonstrated understanding of instructions, follow-up care, medications, Prescriptions given X 2. 20:15 Patient left the ED. mb9 Signatures: Dispatcher [employer] EDMS Marry Moya, JIG BORING MACHINE OPERATOR FOR METAL-C JIG BORING MACHINE OPERATOR FOR METAL-Ckb Des Mary king Preet Pena, RN RN ll1 Sadia Pham, RN RN Mary Nichols, RN RN mb9 Lakisha Scherer RN RN nj1
[2022-08-10] MEDS ORDERED: TRAMADOL HCL 50 MG TAB ONE (19:52)
[2022-08-10 20:27] VITALS: TEMP 98.2
[2022-08-10 20:31] VITALS: BP 126/80; O2SAT 99
== END 2022-08-10 20:15 | disposition home or self-care (01) ==
LOC: ER 17:15
DX: R10.30 Lower abdominal pain, unspecified (principal)
CPT/HCPCS: 36415; 74177; 76830; 80053; 81001; 81025; 83690; 85025; J2405; J7030; Q9967